=== PATIENT | male | born 1985 | race Caucasian/White ===

== ENCOUNTER 2016-06-12 10:54 | Emergency (ER) | payer SELFPAY ==
[2016-06-12 11:00] VITALS: TEMP 98.7; BMI 29.9
--- NOTE | 2016-06-12 11:05 | PDOC ---
History of Present Illness - General Chief Complaint: Lethargy Stated Complaint: FATIGUE (REFERRED) Time Seen by Provider: 06/12/16 11:04 - History of Present Illness Initial Comments: 06/12/16 11:22 The pt is a 31 year old male with no PMH who presents to ED referred from Urgent Care where he was found to have glucosuria. The pt has been complaining of lethargy, weakness, increased thirst for a month. For the past 3 days he has been complaining of dysuria, increased frequency, double vision and episode of vomiting. He denies weight change, fever, chills, diaphoresis. He doesn't take any medications and doesn't have PCP. Currently he denies chest pain, palpitations, SOB, abdominal pain, diarrhea, constipation. 06/12/16 11:35 Past History - Past Medical History Allergies/Adverse Reactions: Allergies Allergy/AdvReac Type Severity Reaction Status Date / Time No Known Allergies Allergy Verified 06/12/16 10:59 Other medical history: DENIES - Psycho/Social/Smoking Cessation Hx Anxiety: No Suicidal Ideation: No Smoking History: Never smoked Hx Alcohol Use: No Drug/Substance Use Hx: No Substance Use Type: None Review of Systems - Review of Systems Able to Perform ROS?: Yes Comments:: 06/12/16 11:33 REVIEW OF SYSTEMS CONSTITUTIONAL: generalized weakness, malaise Absent: fever, chills, diaphoresis, loss of appetite, weight change HEENT: Absent: rhinorrhea, nasal congestion, throat pain, throat swelling, difficulty swallowing, mouth swelling, ear pain, eye pain, visual changes CARDIOVASCULAR: Absent: chest pain, syncope, palpitations, irregular heart rate, lightheadedness , peripheral edema RESPIRATORY: Absent: cough, shortness of breath, dyspnea with exertion, orthopnea, wheezing, stridor, hemoptysis GASTROINTESTINAL: Absent: abdominal pain, abdominal distension, nausea, vomiting, diarrhea, constipation, melena, hematochezia GENITOURINARY: dysuria, frequency Absent: , urgency, hesitancy, hematuria, flank pain, genital pain MUSCULOSKELETAL: Absent: myalgia, arthralgia, joint swelling, back pain, neck pain SKIN: Absent: rash, itching, pallor NEUROLOGIC: Absent: headache, focal weakness or paresthesias, dizziness, unsteady gait, seizure, mental status changes, bladder or bowel incontinence *Physical Exam - Vital Signs Last Vital Signs Temp Pulse Resp BP Pulse Ox 98.7 F 116 H 20 110/83 98 06/12/16 10:55 06/12/16 10:55 06/12/16 10:55 06/12/16 10:55 06/12/16 10:55 - Physical Exam Comments: 06/12/16 11:36 GENERAL: The patient is awake, alert, and fully oriented, in no acute distress. HEAD: Normal with no signs of trauma. EYES: PERRL, extraocular movements intact, sclera anicteric, conjunctiva clear. No ptosis. ENT: Ears normal, nares patent, oropharynx: oral thrush on oral muccosa, moist mucous membranes. NECK: Trachea midline, full range of motion, supple. LUNGS: Breath sounds equal, clear to auscultation bilaterally, no wheezes, no crackles, no accessory muscle use. HEART: Regular rate and rhythm, S1, S2 without murmur, rub or gallop. ABDOMEN: Soft, nontender, nondistended, normoactive bowel sounds, no guarding, no rebound, no hepatosplenomegaly, no masses. EXTREMITIES: 2+ pulses, warm, well-perfused, no edema. NEUROLOGICAL: Normal speech, gait not observed. PSYCH: Normal mood, normal affect. SKIN: Warm, dry, normal turgor, no rashes, striae on abdomen. ED Treatment Course - LABORATORY CBC & Chemistry Diagram: 06/12/16 11:28 06/12/16 11:28 Medical Decision Making - Medical Decision Making 06/12/16 11:39 The pt is a 31 year male who presents complaining of lethargy, increased thirst , dysuria for a month. Differential diagnosis include DM, DKA, UTI, depression. We ordered UA, Ucx, CBC, CMP, acetone level, VBG, NS 1L. The pt refused screening for HIV. 06/12/16 15:24 Elevated troponin, diffuse ST elevations in ECG. Discussed with Dr. Nguyễn , ECHO done, nl, CXR no acute pathology. Elevated glucose, no anion gap. We will transfer the pt to [facility] for possible cath. He was informed and agreed. *DC/Admit/Observation/Transfer Diagnosis at time of Disposition: Carditis - Discharge Dispostion Disposition: TRANSFER ACUTE CARE/OTHER HOSP Condition at time of disposition: Guarded
--- NOTE | 2016-06-12 11:35 | PDOC ---
Attending Attestation - Resident Resident Name: StephaniePeace - ED Attending Attestation I have performed the following: I have examined & evaluated the patient, The case was reviewed & discussed with the resident, I agree w/resident's findings & plan, Exceptions are as noted - HPI HPI: 06/12/16 11:31 31-year-old male with no severe past medical history presents referred from urgent care after he was found to have glucose in the urine in the setting of complaining of one month of progressive fatigue, body aches, polyuria/ polydipsia. Positive family history of diabetes - Physicial Exam PE: 06/12/16 11:33 Mild tachycardia Dry mucosa Abdomen benign, no CVA tenderness Neurologically intact - Critical Care Time Total Critical Care Time: 55 Critical Care Statement: The care of this patient involved high complexity decision making to prevent further life threatening deterioration of the patient 's condition and/or to evalute & treat vital organ system(s) failure or risk of failure. - Medical Decision Making 06/12/16 11:34 Patient seen and evaluated with the resident. I agree with the overall evaluation, assessment, and management with the following summary of visit: 31-year-old male with nonspecific complaints, sounds with glucosuria in urgent care. Rule out new onset diabetes, underlying infectious process, none metabolic syndrome such as depression. Labs, urinalysis VBG, acetone EKG IV fluids Reassess and dispo accordingly 06/12/16 12:42 Labs pending. Abnormal EKG with MILO diffusely, likely pericarditis given low risk factors. Reviewed with Cardiology Dr. Nguyễn, at bedside, checking Trop and Echo ordered. 06/12/16 13:11 Elevated troponin of 5.88, also with elevated glucose but normal anion gap. Acetone pending. Discussed with Dr. Nguyễn's, still more likely pericarditis/myocarditis. Will obtain stat echo, give aspirin, and discuss next steps. 06/12/16 14:06 Echo and CXR wnl. Per cardiology will transfer for further cardiac workup. patient and family request [facility]. Accepted by Dr. Redd of cardiology, discussed with Dr. Nguyễn. Transfer arranged. Aspirin given. Discharge Disposition - Diagnosis Carditis - Discharge Dispostion Disposition: TRANSFER ACUTE CARE/OTHER HOSP Condition at time of disposition: Guarded - Transfer to Acute Care Facility Receiving Facility: [facility]. Accepting Physician:: Ivania Heart Score/ECG Review #1 ECG reviewed & interpreted by me at: 11:49 06/12/16 12:[address] elevations most prominent in the inferior leads, but also present throughout the precordial leads, no reciprocal changes. No significant MT depression, amplitude is within normal limits, intervals are normal.
[2016-06-12] MEDS ORDERED: SODIUM CHLORIDE 1,000 ML IV STA (11:38)
[2016-06-12 12:18] LABS: VENOUS PH 7.37 (7.32-7.42)
[2016-06-12 12:19] LABS: VENOUS BLOOD GAS HCO3 27.5 meq/L (19-25)
[2016-06-12 12:40] LABS: MCH 28.8 pg (25.7-33.7); MCHC 33.6 g/dl (32.0-35.9); MEAN CELL VOLUME 85.7 fl (80-96); MEAN PLT VOLUME 9.4 fl (7.5-11.1); PLATELET COUNT 204 K/MM3 (134-434); RDW 12.5 % (11.9-15.9); WHITE BLOOD COUNT 11.7 K/mm3 (4.0-10.0)
[2016-06-12 12:44] LABS: ALBUMIN 4.2 g/dl (3.4-5.0); ANION GAP 11 (8-16); BILIRUBIN,TOTAL 0.6 mg/dL (0.2-1.0); CALCIUM 9.4 mg/dL (8.5-10.1); CO2 26 mmol/L (21-32); SGOT/AST 59 U/L (15-37); TOT PROT 7.9 g/dl (6.4-8.2)
[2016-06-12 12:46] LABS: ALK PHOS 133 U/L (45-117); SGPT/ALT 36 U/L (12-78)
--- NOTE | 2016-06-12 12:48 | EKG ---
Test Reason : Blood Pressure : / mmHG Vent. Rate : 089 BPM Atrial Rate : 089 BPM P-R Int : 134 ms QRS Dur : 076 ms QT Int : 326 ms P-R-T Axes : 041 014 039 degrees QTc Int : 396 ms NORMAL SINUS RHYTHM ST ELEVATION CONSIDER INFERIOR INJURY OR ACUTE INFARCT ACUTE HI / STEMI ABNORMAL ECG WHEN COMPARED WITH ECG OF 26-JAN-2006 22:54, QRS VOLTAGE HAS DECREASED Confirmed by KENNETH MORE MD ([id number]) on 06/12/2016 12:48:21 PM Referred By: Confirmed By:KENNETH MORE MD
[2016-06-12 12:49] LABS: GLUCOSE,RANDOM 354 mg/dL (74-106)
--- NOTE | 2016-06-12 12:51 | PN ---
Progress Note (short form) - Note Progress Note: Consult Dictated New onset polyuria and fatigue Recent URI Abnl ECG REC: Suspect pericarditis. -Echo -Cardiac enzymes -Tele -NSAIDS -Work up of fatigue and polyuria as per PMD, concern for DM
[2016-06-12] MEDS ORDERED: ASPIRIN 325 MG TABLET PO ONE (12:55)
[2016-06-12 13:05] LABS: TROPONIN I 5.88 ng/ml (0.00-0.05)
[2016-06-12 14:42] LABS: URINE APPEARANCE CLEAR; URINE BILIRUBIN NEGATIVE (NEGATIVE); URINE BLOOD NEGATIVE (NEGATIVE); URINE COLOR LTYELLOW; URINE GLUCOSE (UA) 3+ (NEGATIVE); URINE KETONE 2+ (NEGATIVE); URINE LEUK ESTERASE NEGATIVE (NEGATIVE); URINE NITRITE NEGATIVE (NEGATIVE); URINE PROTEIN NEGATIVE (NEGATIVE); URINE UROBILINOGEN NEGATIVE E.U./dl (0.2-1.0)
[2016-06-12 15:39] LABS: INR 1.01 (0.82-1.09); PROTHROMBIN TIME (PATIENT) 11.1 SEC (9.98-11.88)
--- NOTE | 2016-06-12 15:44 | PN ---
Progress Note (short form) - Note Progress Note: Cardiac enzymes noted. Echo basically normal. Labs reviewed. Case d/w Dr. Alfaro- still suspect pericarditis or sindy/myocarditis. However, in light of confirmed DM and degree of enzyme elevation, assessment of cor anatomy reasonable. Will transfer to [facility] for Coronary CTA vs cath. ASA given. Family aware and agrees to tx Dr. Hanson accepts patient, case discussed with him.
[2016-06-12 16:36] VITALS: BP 116/62; PULSE 93
--- NOTE | 2016-06-12 19:25 | CONS ---
DATE OF CONSULTATION: DATE OF DICTATION: 06/12/2016 CARDIOLOGY CONSULTATION REQUESTING PHYSICIAN: Mckay Alfaro M.D. REASON FOR CONSULTATION: Abnormal EKG. HISTORY OF PRESENT ILLNESS: The patient is a 31-year-old male with no significant past medical history who has been experiencing polyuria, polydipsia, and generalized fatigue, blurry vision for the last 4 weeks. At his 's urging, he went to an urgent care center today and was found to have significantly elevated glucose on urinalysis and was referred to his local ER. I was called due to an abnormal baseline EKG showing less than [address] segment elevations diffusely in I, II, III, AVF, V4-V6 with no significant reciprocal depressions. At this time the patient is asymptomatic with no chest pain. He describes a viral URI like syndrome occurring about 1 week ago with white spots on his tongue and on the inside of his buccal mucosa associated with sore throat, dry cough, and congestion, for which he took an over the counter decongestant. Several days ago he had sharp chest pain radiating to the back, worse with different changes of position, currently chest pain free. He denies shortness of breath, fevers, chills. Denies palpitations, syncope, or symptoms of heart failure. PAST MEDICAL HISTORY: He has no chronic medical illnesses. ALLERGIES: He has no allergies and takes no chronic medications. FAMILY HISTORY: There is no early family history of sudden cardiac or early CAD or aneurysms. SOCIAL HISTORY: He smokes cigars, but no cigarettes. No illicits drugs, and no tobacco. 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 He is afebrile. PHYSICAL EXAMINATION: Vital signs: Afebrile with temperature of 98.7, pulse 116, regular. Blood pressure 110/83. HEENT: Anicteric. Neck: 2+ carotid pulses. No bruits. Heart: S1, 2. Regular. No murmurs. Chest: Clear. Abdomen: Soft. Nontender. Extremities: No edema. LABORATORY: Currently pending. Chest x-ray is pending. Echo is currently pending. IMPRESSION: A 31-year-old male with approximately 1 month of generalized fatigue, polyuria, and polydipsia, concern for new onset diabetes; recent viral URI like syndrome with electrocardiogram showing diffuse ST segment elevations with suspicion for pericarditis. PLAN: 1. Echocardiogram. 2. Telemetry. 3. Serial cardiac enzymes. 4. Treatment with nonsteroidal antiinflammatories as we trend cardiac enzymes. 5. Further workup of suspected new onset diabetes as per PMD. ANNIE HERNANDEZ M.D. GOMEZ/[id number]
== END 2016-06-12 16:38 | disposition short-term general hospital (02) ==
LOC: JER 10:54
PROC: 3E0337Z Introduction of Electrolytic and Water Balance Substance into Peripheral Vein, Percutaneous Approach (ICD-10-PCS; principal; 2016-06-12)
DX: I51.89 Other ill-defined heart diseases (principal)
CPT/HCPCS: 36415; 71010-TC; 80053; 81003; 82009; 82550; 82553; 82803; 84484; 85027; 85610; 87086; 93005; 93010; 93306-TC; 99284-25

== ENCOUNTER 2018-09-26 21:40 | Inpatient (IN) | payer OTHER ==
--- NOTE | 2018-09-26 21:50 | PDOC ---
History of Present Illness - General Chief Complaint: Weakness Stated Complaint: R/SIDE NUMBNESS Time Seen by Provider: 09/26/18 21:50 - History of Present Illness Initial Comments: Reji Conner is a 33yo man with a PMH of [place] (2017), CVA w/ residual aphasia ( 2018), IDDM, HTN, HLD who presents with right-sided numbness for 4 days. Mr Conner has significant aphasia but is able to communicate with yes/no answers, and his is at bedside to provide additional information. He states that the entire right side of his body feels numb. The numbness is not exactly the same everywhere; it is more severe in the arm and leg compared to the right torso and face. He has not noticed any loss of strength or balance , and his speech is at baseline. His confirms that his gait and speech appear normal. He denies any associated symptoms such as chest pain, difficulty breathing, abdominal symptoms, anorexia, fever, GI or urinary symptoms. He has been taking his medications as prescribed, and he says that his blood sugar is usually around the 120's at home. Past History - Past Medical History Allergies/Adverse Reactions: Allergies Allergy/AdvReac Type Severity Reaction Status Date / Time dulaglutide [From [facility]] Allergy Verified 09/26/18 21:44 Home Medications: Ambulatory Orders Aspirin [Aspirin EC] 81 mg PO DAILY 09/26/18 Atorvastatin Ca [Lipitor] 80 mg PO HS 09/26/18 Clopidogrel Bisulfate [Plavix] 75 mg PO DAILY 09/26/18 Insulin Glargine,Hum.rec.anlog [Basaglar Kwikpen U-100] 20 unit SQ DAILY Metformin HCl [Metformin HCl ER] 500 mg PO DAILY 09/26/18 Metoprolol Tartrate 25 mg PO BID 09/26/18 Cardiac Disorders: Yes ([place]) COPD: No Diabetes: Yes HTN: Yes Hypercholesterolemia: Yes Other medical history: CVA - Suicide/Smoking/Psychosocial Hx Smoking History: Never smoked Hx Alcohol Use: No Drug/Substance Use Hx: No Substance Use Type: None Review of Systems - Review of Systems Comments:: General: No fevers, no chills, no weight or appetite change, no malaise HEENT: No changes in vision, no changes in hearing, no congestion, no sore throat CV: No chest pain, no palpitations, no LE edema Pulm: No SOB, no cough, no wheezing GI: No nausea or vomiting, no change in bowel habits, no melena : No frequency, no urgency, no dysuria Musc: No back pain, no joint swelling, no recent injury Skin: No rash, no lesions, no erythema Endo: No excessive thirst, no heat/cold intolerance Heme: No unusual bruising or bleeding, no swollen glands Neuro: No syncope, +numbness (see HPI), no focal weakness Vasc: No claudication Psych: No recent change in mood, no SI or HI *Physical Exam - Vital Signs Last Vital Signs Temp Pulse Resp BP Pulse Ox 97.6 F 92 H 18 123/85 99 09/26/18 21:41 09/26/18 21:41 09/26/18 21:41 09/26/18 21:41 09/26/18 21:41 - Physical Exam Comments: General: Comfortable, no acute distress HEENT: PERRL, EOMI, MMM, voice normal, normal neck ROM. Fluttering of R>L eyelids when closed Cards: RRR, no murmur appreciated Pulm: Comfortable on room air, clear to auscultation bilaterally Abd: Soft, nontender, nondistended Ext: Atraumatic. No LE edema. ROM intact. Strength 5/5 and equal bilaterally Vasc: Extremities WWP Skin: Normal color, no rashes or lesions Neuro: A&Ox3, Aphasic w/ severe difficulty speaking, comprehension appears intact, CN 2-4 6-12 grossly intact, motor grossly intact and symmetric. Sensation to sharp/dull diminished along lateral RLE, ulnar RUE. Sensation to light touch w/ cotton diminished over entire RLE and ulnar RUE along with Rt face. Psych: Mood appropriate to situation ED Treatment Course - LABORATORY CBC & Chemistry Diagram: 09/26/18 22:25 09/26/18 22:25 Medical Decision Making - Medical Decision Making 09/26/18 22:23 Reji Conner is a 33yo man with a PMH of [place] (2017), CVA w/ residual aphasia ( 2018), IDDM, HTN, HLD who presents with right-sided numbness for 4 days. He denies any other symptoms including weakness, loss of balance, change in gait, fever, or change in facial appearance. - Concerning for new CVA, possibly lacunar given that symptoms appear to be entirely loss of sensation - Stroke workup ordered including CBC, CMP, trop, lipids, CT head, CXR, EKG - No new meds at this time as he already takes a high-intensity statin, aspirin , plavix 09/26/18 23:45 - Labs reviewed. Notable for elevated lipids, no other significant abnormalities - CT completed, reviewed in ED. Notable left frontal defect from previous CVA. No bleed appreciated. Radiology report pending - EKG w/ NSR, HR 89, normal axis, normal intervals, no ST changes. Normal EKG 09/27/18 00:23 - CT without acute infarct. Notes defects c/w previous stroke - Updated pt - Microblog sent to hospitalist team for admission for additional neuro workup - Signed out to Dr Hwang for the remainder of his ED care. 09/27/18 00:33 - Spoke to Dr Gould regarding admission. Will accept to Dr Gutierrez' service - Placed consult for Dr Julien, pt's outpatient neurologist Discussed with Dr Durham. Cordelia Capone PGY2 *DC/Admit/Observation/Transfer Diagnosis at time of Disposition: Numbness on right side - Discharge Dispostion Decision to Admit order: Yes - Referrals - Patient Instructions - Post Discharge Activity
[2018-09-26] MEDS ORDERED: SODIUM CHLORIDE 1,000 ML IV SCH (22:15)
[2018-09-26 22:39] LABS: BASO % 1.2 % (0-2.0); EOS % 1.3 % (0-4.5); HEMATOCRIT 46.2 % (35.4-49); LYMPH % 30.9 % (8-40); MCH 28.5 pg (25.7-33.7); MCHC 32.5 g/dl (32.0-35.9); MEAN CELL VOLUME 87.6 fl (80-96); MEAN PLT VOLUME 8.3 fl (7.5-11.1); MONO % 6.8 % (3.8-10.2); NEUT % 59.8 % (42.8-82.8); PLATELET COUNT 279 K/MM3 (134-434); RBC 5.27 M/mm3 (4.00-5.60); RDW 12.8 % (11.9-15.9); WHITE BLOOD COUNT 10.1 K/mm3 (4.0-10.0)
[2018-09-26 22:51] LABS: INR 0.98 (0.83-1.09); PROTHROMBIN TIME (PATIENT) 11.6 SEC (9.7-13.0)
[2018-09-26 23:12] LABS: ALK PHOS 65 U/L (45-117); ANION GAP 6 MMOL/L (8-16); BILIRUBIN,TOTAL 0.3 mg/dL (0.2-1); BLOOD UREA NITROGEN 22.1 mg/dL (7-18); CALCIUM 9.1 mg/dL (8.5-10.1); CHLORIDE 106 mmol/L (98-107); CHOLESTEROL 190 mg/dL (50-200); CO2 27 mmol/L (21-32); CREATININE 1.2 mg/dL (0.55-1.3); GLUCOSE,RANDOM 135 mg/dL (74-106); HDL CHOLESTEROL 55 mg/dL (40-60); POTASSIUM 4.6 mmol/L (3.5-5.1); SGOT/AST 26 U/L (15-37); SGPT/ALT 21 U/L (13-61); SODIUM 139 mmol/L (136-145); TOT PROT 7.5 g/dl (6.4-8.2); TRIGLYCERIDES 268 mg/dL (0-150)
--- NOTE | 2018-09-27 00:09 | PDOC ---
Documentation entered by Sheron Fair SCRIBE, acting as scribe for Gogo Durham MD. Gogo Durham MD: This documentation has been prepared by the gisselle, Sheron Fair SCRIBE, under my direction and personally reviewed by me in its entirety. I confirm that the documentation accurately reflects all work, treatment, procedures, and medical decision making performed by me. Attending Attestation - Resident Resident Name: Cordelia Capone - ED Attending Attestation I have performed the following: I have examined & evaluated the patient, The case was reviewed & discussed with the resident, I agree w/resident's findings & plan, Exceptions are as noted - HPI HPI: 09/27/18 00:01 33yo man with a PMH of [place] (2017), CVA w/ residual aphasia (2018), IDDM, HTN, HLD presents to the ED with 4 days of decreased sensation to the R side of the body. Denies headache, weakness. Denies associated CP, SOB, fevers, chills, N/V/ D, abd pain, edema, rashes, neck pain, back pain. Waited 4 days because he did not want to come to the hospital. - Physicial Exam PE: 09/27/18 00:03 agree with resident exam - Medical Decision Making 09/27/18 00:04 33yo M hx [place], CVA presents to the ED with R sided decreased sensation x4 days Out of TPA window CTH with old L sided frontal CVA/encephalomalacia. No blood on my read Labs wnl Plan for admission for CVA w/u, neuro evaluation Heart Score/ECG Review #1 09/27/18 00:07 Twelve-lead EKG was performed and reviewed by me. Normal sinus rhythm, rate 89. Normal axis and intervals. No ST elevations. TWI lead III and TWF in AVF
[2018-09-27 00:48] LABS: URINE APPEARANCE CLEAR; URINE BILIRUBIN NEGATIVE (NEGATIVE); URINE COLOR YELLOW; URINE GLUCOSE (UA) NEGATIVE (NEGATIVE); URINE KETONE TRACE (NEGATIVE); URINE LEUK ESTERASE NEGATIVE (NEGATIVE); URINE NITRITE NEGATIVE (NEGATIVE); URINE PROTEIN NEGATIVE (NEGATIVE)
--- NOTE | 2018-09-27 02:30 | PN ---
Teaching Attending Note Name of Resident: Jessica Gould ATTENDING PHYSICIAN STATEMENT I saw and evaluated the patient. Chart, data, imaging reviewed. I reviewed the resident's note and discussed the case with the resident. I agree with the resident's findings and plan as documented. SUBJECTIVE: 33yo man with a PMH of [place] (2017), CVA w/ residual dysarthria (2018), IDDM, HTN, HLD presents to the ED with 4 days of decreased sensation to the R side of face and body as well as paresthesias in his right hand. He was reluctant to come to hospital but finally came after his symptoms worsened. As per his GF, was already worked up for hypercoagulability in the past however workup was negative. OBJECTIVE: Last Vital Signs Temp Pulse Resp BP Pulse Ox 98.1 F 84 20 121/68 98 09/27/18 01:17 09/27/18 01:17 09/27/18 01:17 09/27/18 01:17 09/26/18 23:25 General- nad, aaox3 Neuro- decreased pinprick sensation on right face, right upper and lower extremities compared to left. +dysarthria, 4/5 hand-hog tender on right compared to 5/ 5 on left. Brisk patellar reflexes b/l Abnormal Lab Results 09/26/18 09/26/18 09/27/18 22:25 22:25 00:35 WBC 10.1 H Anion Gap 6 L BUN 22.1 H Random Glucose 135 H Triglycerides 268 H Total LDL Cholesterol 105 H Urine Ketones Trace H Head CT reviewed - showed left frontal lobe encephalomalacia compatible with old infarct, no new lesions identified ekg showed sinus rhythm ASSESSMENT AND PLAN: #Clinical picture of CVA, no acute findings on CT of brain, only old area of encephalomalacia on left side c/w old infarct. Patient was outside of window of possible TPA. -admit to telemetry -old echo from 2017 and carotid duplex form 2019 appreciated -ordered brain MRI, head/neck MRA -atorvastatin 80mg po qhs -ASA 81mg po -neurology eval -neuro checks q4hrs -NPO except for meds -speech and swallow eval -physical therapy #CAD -ASA -clopidogrel -statin #DM -tight glycemic control -novolog sliding scale
--- NOTE | 2018-09-27 03:24 | HP ---
CHIEF COMPLAINT: R sided sensory loss PCP: HISTORY OF PRESENT ILLNESS: 33 yo M w/ PMH of [place] (2017), CVA (2018) s/p thrombectomy w/ aphasia, DM, HLD, HTN brought into the ED by his for right sided sensory loss. Pt is aphasic and can only answer yes or no. pt was able to state his name and his location. Pt speech is his baseline according to his . According to , pt states this acute sensory loss began 4 days ago. The pt states it is not improving and he is noticing it more. Today symptoms progressed to his R foot and is now beginning to affect his strength. ER course was notable for: (1)CT head negative for acute infarct Recent Travel: denies PAST MEDICAL HISTORY: Diabetes CT CVA HTN HLD PAST SURGICAL HISTORY: Social History: Smoking:pt smoked approx 5 cigarettes for 10 years. quit around 8 years ago Alcohol:denies Drugs: denies Family History: [facility] Allergy (Verified 09/26/18 21:44) HOME MEDICATIONS: Home Medications Medication Instructions Recorded Aspirin [Aspirin EC] 81 mg PO DAILY 09/26/18 Atorvastatin Ca [Lipitor] 80 mg PO HS 09/26/18 Clopidogrel Bisulfate [Plavix] 75 mg PO DAILY 09/26/18 Insulin Glargine,Hum.rec.anlog 20 unit SQ DAILY 09/26/18 [Basaglar Kwikpen U-100] Metformin HCl [Metformin HCl ER] 500 mg PO DAILY 09/26/18 Metoprolol Tartrate 25 mg PO BID 09/26/18 REVIEW OF SYSTEMS CONSTITUTIONAL: Absent: fever, chills, diaphoresis, generalized weakness, malaise, loss of appetite, weight change HEENT: Absent: throat swelling, difficulty swallowing, eye pain, visual changes CARDIOVASCULAR: Absent: chest pain, palpitations, irregular heart rate, lightheadedness RESPIRATORY: Absent: cough, shortness of breath, dyspnea with exertion, orthopnea, wheezing, stridor, hemoptysis GASTROINTESTINAL: Absent: abdominal pain, abdominal distension, nausea, vomiting, diarrhea, constipation, melena, hematochezia GENITOURINARY: Absent: dysuria, frequency, urgency, hesitancy, hematuria, flank pain, genital pain MUSCULOSKELETAL: Absent: myalgia, arthralgia, joint swelling, back pain, neck pain SKIN: Absent: rash, itching, pallor HEMATOLOGIC/IMMUNOLOGIC: Absent: easy bleeding, easy bruising, lymphadenopathy, frequent infections ENDOCRINE: Absent: unexplained weight gain, unexplained weight loss, heat intolerance, cold intolerance NEUROLOGIC: Absent: headache, focal weakness or paresthesias, dizziness, unsteady gait, seizure, mental status changes, bladder or bowel incontinence PSYCHIATRIC: Absent: anxiety, depression, suicidal or homicidal ideation, hallucinations. PHYSICAL EXAMINATION Vital Signs - 24 hr 09/26/18 09/26/18 09/26/18 21:41 22:15 23:25 Temperature 97.6 F Pulse Rate 92 H Pulse Rate [ 92 H Left Radial] Respiratory 18 16 Rate Blood Pressure 123/85 Blood Pressure 121/78 [Left Arm] O2 Sat by Pulse 99 97 98 Oximetry (%) 09/27/18 01:17 Temperature 98.1 F Pulse Rate Pulse Rate [ 84 Left Radial] Respiratory 20 Rate Blood Pressure Blood Pressure 121/68 [Left Arm] O2 Sat by Pulse Oximetry (%) GENERAL: Awake, alert, and fully oriented, in no acute distress. HEAD: Normal with no signs of trauma. EYES: Pupils equal, round and reactive to light, extraocular movements intact, sclera anicteric, conjunctiva clear. No lid lag. NECK: Normal range of motion, supple without lymphadenopathy, JVD, no carotid bruit appreciated LUNGS: Breath sounds equal, clear to auscultation bilaterally. No wheezes, and no crackles. No accessory muscle use. HEART: Regular rate and rhythm, normal S1 and S2 without murmur, rub or gallop. ABDOMEN: Soft, tender to palpation RUQ and RLQ, not distended, normoactive bowel sounds MUSCULOSKELETAL: Normal range of motion at all joints. No bony deformities or tenderness. No CVA tenderness. UPPER EXTREMITIES: 2+ pulses, warm, well-perfused. No cyanosis. No clubbing. 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 No calf tenderness. No peripheral edema. NEUROLOGICAL: Cranial nerves II-XII intact. Normal gait. PSYCHIATRIC: Cooperative. Good eye contact. Appropriate mood and affect. SKIN: Warm, dry, normal turgor, no rashes or lesions noted, normal capillary refill. Laboratory Results - last 24 hr Laboratory Last Values WBC 10.1 K/mm3 (4.0-10.0) H 09/26/18 22:25 RBC 5.27 M/mm3 (4.00-5.60) 09/26/18 22:25 Hgb 15.0 GM/dL (11.7-16.9) 09/26/18 22:25 Hct 46.2 % (35.4-49) 09/26/18 22:25 MCV 87.6 fl (80-96) 09/26/18 22:25 MCH 28.5 pg (25.7-33.7) 09/26/18 22:25 MCHC 32.5 g/dl (32.0-35.9) 09/26/18 22:25 RDW 12.8 % (11.9-15.9) 09/26/18 22:25 Plt Count 279 K/MM3 (134-434) D 09/26/18 22:25 MPV 8.3 fl (7.5-11.1) D 09/26/18 22:25 Absolute Neuts (auto) 6.0 K/mm3 (1.5-8.0) 09/26/18 22:25 Neutrophils % 59.8 % (42.8-82.8) 09/26/18 22:25 Lymphocytes % 30.9 % (8-40) 09/26/18 22:25 Monocytes % 6.8 % (3.8-10.2) 09/26/18 22:25 Eosinophils % 1.3 % (0-4.5) 09/26/18 22:25 Basophils % 1.2 % (0-2.0) 09/26/18 22:25 Nucleated RBC % 0 % (0-0) 09/26/18 22:25 PT with INR 11.60 SEC (9.7-13.0) 09/26/18 22:25 INR 0.98 (0.83-1.09) 09/26/18 22:25 Sodium 139 mmol/L (136-145) 09/26/18 22:25 Potassium 4.6 mmol/L (3.5-5.1) 09/26/18 22:25 Chloride 106 mmol/L (98-107) 09/26/18 22:25 Carbon Dioxide 27 mmol/L (21-32) 09/26/18 22:25 Anion Gap 6 MMOL/L (8-16) L 09/26/18 22:25 BUN 22.1 mg/dL (7-18) H 09/26/18 22:25 Creatinine 1.2 mg/dL (0.55-1.3) 09/26/18 22:25 Est GFR (CKD-EPI)AfAm 90.26 09/26/18 22:25 Est GFR (CKD-EPI)NonAf 77.87 09/26/18 22:25 Random Glucose 135 mg/dL (74-106) H 09/26/18 22:25 Calcium 9.1 mg/dL (8.5-10.1) 09/26/18 22:25 Total Bilirubin 0.3 mg/dL (0.2-1) 09/26/18 22:25 AST 26 U/L (15-37) 09/26/18 22:25 ALT 21 U/L (13-61) 09/26/18 22:25 Alkaline Phosphatase 65 U/L (45-117) 09/26/18 22:25 Creatine Kinase 140 U/L (26-308) 09/26/18 22:25 Troponin I < 0.02 ng/ml (0.00-0.05) 09/26/18 22:25 Total Protein 7.5 g/dl (6.4-8.2) 09/26/18 22:25 Albumin 4.0 g/dl (3.4-5.0) 09/26/18 22:25 Triglycerides 268 mg/dL (0-150) H 09/26/18 22:25 Cholesterol 190 mg/dL (50-200) 09/26/18 22:25 Total LDL Cholesterol 105 mg/dL (5-100) H 09/26/18 22:25 HDL Cholesterol 55 mg/dL (40-60) 09/26/18 22:25 Urine Color Yellow 09/27/18 00:35 Urine Appearance Clear 09/27/18 00:35 Urine pH 7.0 (5.0-8.0) 09/27/18 00:35 Ur Specific [place] 1.027 (1.010-1.035) 09/27/18 00:35 Urine Protein Negative (NEGATIVE) 09/27/18 00:35 Urine Glucose (UA) Negative (NEGATIVE) 09/27/18 00:35 Urine Ketones Trace (NEGATIVE) H 09/27/18 00:35 Urine Blood Negative (NEGATIVE) 09/27/18 00:35 Urine Nitrite Negative (NEGATIVE) 09/27/18 00:35 Urine Bilirubin Negative (NEGATIVE) 09/27/18 00:35 Urine Urobilinogen 1.0 mg/dL (0.2-1.0) 09/27/18 00:35 Ur Leukocyte Esterase Negative (NEGATIVE) 09/27/18 00:35 Blood Type B POSITIVE 09/26/18 22:45 Antibody Screen Negative 09/26/18 22:45 ASSESSMENT/PLAN: 33 yo M with PMH of CT (2017) , CVA (2018) s/p thrombectomy? w/ residual aphasia, DM, HLD,HTN presenting to ED with R sided sensory loss and weakness that began 4 days ago. CVA -admit to telemetry -prior echo (2016) and carotid duplex (2019) appreciated -ordered brain MRI, head/neck MRA -c/w home atorvastatin 80mg po qhs -c/w home ASA 81mg po -neurology eval - consulted Dr. Julien -neuro checks q4hrs -NPO except for meds -speech and swallow eval -PT #CAD -c/w home ASA, clopidogrel, statin #DM -tight glycemic control -novolog sliding scale -BGM DVT ppx: -SCDs Visit type - Emergency Visit Emergency Visit: No - New Patient This patient is new to me today: No - Critical Care Critical Care patient: No
[2018-09-27 03:53] VITALS: BMI 30.7
[2018-09-27] MEDS: INSULIN SLIDING SCALE (NOVOLOG) 1 VIAL SQ SCH ×4 (06:19→21:59)
[2018-09-27] MEDS: CLOPIDOGREL BISULFATE 75 MG TABLET (FP) PO SCH (09:32)
[2018-09-27] MEDS: ASPIRIN COATED 81 MG TABLET.EC PO SCH (09:32)
--- NOTE | 2018-09-27 10:34 | PN ---
Progress Note (short form) - Note Progress Note: SUBJECTIVE: Still reports nubness/tingling R face, arm, leg. No motor weakness. Baseline dysphasia and difficulty in obtaining full history. at bedside was able to provide important history. OBJECTIVE: Afebrile, Hemodynamically Stable. Last Vital Signs Temp Pulse Resp BP Pulse Ox 98.7 F 77 17 122/64 99 09/27/18 06:00 09/27/18 06:00 09/27/18 09:00 09/27/18 06:00 09/27/18 09:00 HEENT - Atraumatic, mild partial flattening R nasolabial fold. Heart - S1, S2, soft SM Lungs - clear to auscultation Abdomen - Soft. Bowel Sounds normal. Extremities - no edema, no calf tenderness Neuro - AAO x 3. Tone/Power normal all 4 extremities. Reports altered sensation R face/arm/leg. No motor weakness. Baseline dysrthria, responds to questions "yes/no" and with one word answers. Laboratory Results - last 24 hr 09/26/18 09/26/18 09/26/18 05:40 22:25 22:25 WBC 10.1 H RBC 5.27 Hgb 15.0 Hct 46.2 MCV 87.6 MCH 28.5 MCHC 32.5 RDW 12.8 Plt Count 279 D MPV 8.3 D Absolute Neuts (auto) 6.0 Neutrophils % 59.8 Lymphocytes % 30.9 Monocytes % 6.8 Eosinophils % 1.3 Basophils % 1.2 Nucleated RBC % 0 PT with INR 11.60 INR 0.98 Sodium Potassium Chloride Carbon Dioxide Anion Gap BUN Creatinine Est GFR (CKD-EPI)AfAm Est GFR (CKD-EPI)NonAf Random Glucose Calcium Total Bilirubin AST ALT Alkaline Phosphatase Creatine Kinase Troponin I Total Protein Albumin Triglycerides Cholesterol Total LDL Cholesterol HDL Cholesterol Urine Color Urine Appearance Urine pH Ur Specific [place] Urine Protein Urine Glucose (UA) Urine Ketones Urine Blood Urine Nitrite Urine Bilirubin Urine Urobilinogen Ur Leukocyte Esterase Blood Type B POSITIVE Antibody Screen 09/26/18 09/26/18 09/27/18 22:25 22:45 00:35 WBC RBC Hgb Hct MCV MCH MCHC RDW Plt Count MPV Absolute Neuts (auto) Neutrophils % Lymphocytes % Monocytes % Eosinophils % Basophils % Nucleated RBC % PT with INR INR Sodium 139 Potassium 4.6 Chloride 106 Carbon Dioxide 27 Anion Gap 6 L BUN 22.1 H Creatinine 1.2 Est GFR (CKD-EPI)AfAm 90.26 Est GFR (CKD-EPI)NonAf 77.87 Random Glucose 135 H Calcium 9.1 Total Bilirubin 0.3 AST 26 ALT 21 Alkaline Phosphatase 65 Creatine Kinase 140 Troponin I < 0.02 Total Protein 7.5 Albumin 4.0 Triglycerides 268 H Cholesterol 190 Total LDL Cholesterol 105 H HDL Cholesterol 55 Urine Color Yellow Urine Appearance Clear Urine pH 7.0 Ur Specific [place] 1.027 Urine Protein Negative Urine Glucose (UA) Negative Urine Ketones Trace H Urine Blood Negative Urine Nitrite Negative Urine Bilirubin Negative Urine Urobilinogen 1.0 Ur Leukocyte Esterase Negative Blood Type B POSITIVE Antibody Screen Negative Current Medications Generic Name Dose Route Start Last Admin Trade Name Katie PRN Reason Stop Dose Admin Aspirin 81 mg 09/27/18 10:00 09/27/18 09:32 Ecotrin - PO 81 mg DAILY SARAH Administration Atorvastatin Calcium 80 mg 09/27/18 22:00 Lipitor - PO HS [facility] Clopidogrel Bisulfate 75 mg 09/27/18 10:00 09/27/18 09:32 Plavix - PO 75 mg DAILY SARAH Administration Sodium Chloride 1,000 mls @ 42 mls/hr 09/26/18 22:15 09/26/18 23:00 Normal Saline - IV 42 mls/hr ASDIR SARAH Administration Insulin Aspart 1 vial 09/27/18 07:00 09/27/18 06:19 Novolog Vial Sliding Scale - SQ Not Given ACHS [facility] Protocol Home Medications Medication Instructions Recorded Aspirin [Aspirin EC] 81 mg PO DAILY 09/26/18 Atorvastatin Ca [Lipitor] 80 mg PO HS 09/26/18 Clopidogrel Bisulfate [Plavix] 75 mg PO DAILY 09/26/18 Metformin HCl [Metformin HCl ER] 500 mg PO BID 09/26/18 Metoprolol Tartrate 25 mg PO BID 09/26/18 ASSESSMENT/PLAN: 33 year old Male with history of CAD s/p [place] 2016, CVA with residual dysphasia 2017, DM 2, HTN, HLD, presents with 4 day history of altered sensation and paresthesia R face/arm/leg. No headache/visual disturbance/motor weakness. 1. Acute CVA possible CT Head negative for acute CVA, showed left frontal lobe encephalomalacia compatible with old infarct. ECG - NSR MRI/MRA Brain, CTA Neck, Echo with bubble study pending. Neurology consulted. Regular Neurochecks and Telemonitoring. LDL still above goal at 105 despite Lipitor 80mg Continue Aspirin, Plavix, Statin pending Neuro eval. Speech/Swallow therapy, Physical Therapy. 2. CAD s/p [place] 2017 s/p BIOINFORMATICIAN (no intervention) Continue Aspirin, Plavix, BB, Statin 3. HTN - Continue Metoprolol 4. HLD -Continue Lipitor. 5. DM 2 - Metformin held. Will maintain on lnsulin Sliding scale. DVT Px - Heparin SQ Visit type - Emergency Visit Emergency Visit: Yes ED Registration Date: 09/27/18 Care time: The patient presented to the Emergency Department on the above date and was hospitalized for further evaluation of their emergent condition. - New Patient This patient is new to me today: Yes Date on this admission: 09/27/18 - Critical Care Critical Care patient: No - Discharge Referral Referred to [facility] Med [facility] No
--- NOTE | 2018-09-27 13:33 | EKG ---
Test Reason : Blood Pressure : / mmHG Vent. Rate : 089 BPM Atrial Rate : 089 BPM P-R Int : 134 ms QRS Dur : 074 ms QT Int : 336 ms P-R-T Axes : 033 038 008 degrees QTc Int : 408 ms NORMAL SINUS RHYTHM NORMAL ECG WHEN COMPARED WITH ECG OF 12-JUN-2016 11:49, ST LESS ELEVATED IN INFERIOR LEADS Confirmed by MD PRIMITIVO, SANTIAGO ([id number]) on 09/27/2018 1:33:08 PM Referred By: Confirmed By:SANTIAGO LANGFORD MD
--- NOTE | 2018-09-27 16:11 | CON.NEURO ---
Consult Consult Specialty:: neurology - History of Present Illness Chief Complaint: stroke History of Present Illness: 33 yo M w/ PMH of [place] ([place]), CVA (2018) s/p thrombectomy w/ aphasia, DM, HLD, HTN brought into the ED by his for right sided sensory loss. Pt is aphasic and can only answer yes or no. pt was able to state his name and his location. Pt speech is his baseline according to his . According to , pt states this acute sensory loss began 4 days ago. The pt states it is not improving and he is noticing it more. Today symptoms progressed to his R foot and is now beginning to affect his strength. I saw and examined the pt at the bedside ; family at the bedside indicating he started having R side numbness F/A/L since 3 days ago and pt was reluctant to come to the hospital; he has had h/o stroke 1 year ago ; he is not told about the cause of his stroke at young age ; he states that his hypercoagulopathy w/u was reported unremarkable ; he denies having any headache ; no f/h of stroke in young and headache to suggest CADASIL. - Alcohol/Substance Use Hx Alcohol Use: No - Smoking History Smoking history: Never smoked Have you smoked in the past 12 months: No Home Medications - Allergies Allergies/Adverse Reactions: Allergies Allergy/AdvReac Type Severity Reaction Status Date / Time dulaglutide [From [facility]] Allergy Verified 09/26/18 21:44 - Home Medications Home Medications: Ambulatory Orders Aspirin [Aspirin EC] 81 mg PO DAILY 09/26/18 Atorvastatin Ca [Lipitor] 80 mg PO HS 09/26/18 Clopidogrel Bisulfate [Plavix] 75 mg PO DAILY 09/26/18 Metformin HCl [Metformin HCl ER] 500 mg PO BID 09/26/18 Metoprolol Tartrate 25 mg PO BID 09/26/18 Review of Systems - Review of Systems Constitutional: reports: No Symptoms Eyes: reports: No Symptoms HENT: reports: No Symptoms Neck: reports: No Symptoms Cardiovascular: reports: No Symptoms Respiratory: reports: No Symptoms Gastrointestinal: reports: No Symptoms Genitourinary: reports: No Symptoms Breasts: reports: No Symptoms Reported Integumentary: reports: No Symptoms Endocrine: reports: No Symptoms Physical Exam-Neuro Vital Signs: Vital Signs Temperature 99.3 F 09/27/18 11:00 Pulse Rate 87 09/27/18 11:00 Respiratory Rate 18 09/27/18 11:00 Blood Pressure 108/60 09/27/18 11:00 O2 Sat by Pulse Oximetry (%) 99 09/27/18 09:00 Constitutional: Yes: Well Nourished Neck: Yes: Supple Cardiovascular: Yes: Regular Rate and Rhythm Respiratory: Yes: CTA Bilaterally Musculoskeletal: Yes: WNL Edema: No Psychiatric: Yes: Alert, Oriented Labs: CBC, BMP 09/26/18 22:25 09/26/18 22:25 INR, PTT INR 0.98 (0.83-1.09) 09/26/18 22:25 - Neuro Exam Level Of Consciousness: Yes: Alert, Oriented to Person, Oriented to Place Eyes: Yes: PERRLA Speech: Broca's Aphasia (Difficult to repeat ; moderate aphasia ; answer with short sentences and 1 word most of the time.) Cranial Nerves II-XII Intact: Yes Gag: Present DTR's: 1+ Left Bicep, 1+ Right Bicep, 1+ Left Tricep, 1+ Right Tricep, 1+ Left Brachioradialis, 1+ Right Brachioradialis, 1+ Left Achilles, 1+ Right Achilles Response to light touch: Normal, Abnormal Response to pain prick: Abnormal (R A/F/L decreased ) Coordination: Normal: Finger to Nose, Heel to [place] Motor Strength: 4/5: Right Leg, 5/5: Left Leg, Right Arm, Left Arm Gait: Deferred Imaging - Results MRI: Report Reviewed, Image Reviewed (New subacute L frontal subacute infarct ; L A2 seg DENNIS , ? hypoplasia) Problem List - Problems (1) Stroke due to embolism of anterior cerebral artery Code(s): I63.429 - CEREBRAL INFRC DUE TO EMBOLISM OF UNSP ANT CEREBRAL ARTERY Qualifiers: Laterality of affected vessel: left Qualified Code(s): I63.422 - Cerebral infarction due to embolism of left anterior cerebral artery (2) Numbness on right side Code(s): R20.0 - ANESTHESIA OF SKIN Assessment/Plan 33 yo M w/ PMH of [place] (2017), stroke in (2018) s/p thrombectomy w/ old residual aphasia, DM, HLD, HTN brought into the ED by his for right sided sensory loss. His sym started 3 days ago , has developed R LE weakness ; MRI brain revealed new subacute L frontal infarct ; pt on baby asp and plavix ; per pt his hypercoagulopathy w/u was -ve one year ago ; no f/h of stroke and headache to suggest CADASIL ; possible DM and HTN as major risk factor; MRA suggestive f ? constriction as well;Not a TPA candidate out of window period. I suggest Cerebral angiography if not done in the past c/w baby asp + plavix + statin cardiac w/u obtain old record for review of hypercoag, shaquille holter monitoring and cardiac w/u PT/OT/ST Health maintenance per primary team Damian Castañeda MD [phone]
[2018-09-27] MEDS: HEPARIN NA (PORCINE) 5,000 UNITS/ML 1ML VIAL SQ SCH (21:55)
[2018-09-27] MEDS ORDERED: ATORVASTATIN CA 80 MG TABLET (FP) PO SCH (22:00)
[2018-09-28] MEDS: INSULIN SLIDING SCALE (NOVOLOG) 1 VIAL SQ SCH ×3 (06:12→17:53)
[2018-09-28] MEDS ORDERED: INSULIN SLIDING SCALE (NOVOLOG) 1 VIAL SQ ONE (08:00)
--- NOTE | 2018-09-28 09:57 | PN ---
Progress Note (short form) - Note Progress Note: Neurology - History of Present Illness Chief Complaint: stroke History of Present Illness: Appreciate neurology coverage over the weekend. 33 yo M w/ PMH of CT (2017), CVA (2018) s/p thrombectomy w/ aphasia, DM, HLD, HTN brought into the ED by his for right sided sensory loss. Know to me from the office and aphasic at baseline and answers mostly yes or no. According to , pt states this acute sensory loss began 4 days prior to admission. The pt stated it was not improving and she believed there may have been some weakness though on my exam strength appeared symetric. he was seen over the weekend and imaging studies completed. Reviewed and discussed them with patient and at bedside. CT head showed encephalomalacia of the left frontal region without any acute changes. CTA of the neck was completed and waswithout hemodynamically significant stenosis and essentially unremarkable. MRI brain however did demonstrate signal change in the corpus callosum extending into the subadjacent left frontal lobe possibly subacute infarct. 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 Not in TPA window or thrombectomy window. Connected with Dr. Tree Arceo of neurointerventional and ccatheter angiogram not performed at this location. Discussed with and we'll coordinate this advanced study as outpatient. Patient is on aspirin and Plavix and at this point is no indication for anticoagulation unless telemetry monitoring were to find atrial fibrillation or alternative cardiac etiology.. Reportedly, hypercoagulable workup was also pursued by the family and was negative. Home Medications - Allergies Allergies/Adverse Reactions: Allergies Allergy/AdvReac Type Severity Reaction Status Date / Time dulaglutide [From [facility]] Allergy Verified 09/26/18 21:44 Active Medications Aspirin (Ecotrin -) 81 mg PO DAILY [facility] Last Admin: 09/27/18 09:32 Dose: 81 mg Atorvastatin Calcium (Lipitor -) 80 mg PO HS SARAH Last Admin: 09/27/18 21:55 Dose: 80 mg Clopidogrel Bisulfate (Plavix -) 75 mg PO DAILY [facility] Last Admin: 09/27/18 09:32 Dose: 75 mg Heparin Sodium (Porcine) (Heparin -) 5,000 unit SQ BID [facility] Last Admin: 09/27/18 21:55 Dose: 5,000 unit Insulin Aspart (Novolog Vial Sliding Scale -) 1 vial SQ ACHS [facility]; Protocol Last Admin: 09/28/18 06:12 Dose: Not Given Review of Systems - Review of Systems Constitutional: reports: No Symptoms Eyes: reports: No Symptoms HENT: reports: No Symptoms Neck: reports: No Symptoms Cardiovascular: reports: No Symptoms Respiratory: reports: No Symptoms Gastrointestinal: reports: No Symptoms Genitourinary: reports: No Symptoms Breasts: reports: No Symptoms Reported Integumentary: reports: No Symptoms Endocrine: reports: No Symptoms Physical Exam-Neuro Vital Signs: Vital Signs Period Temp Pulse Resp BP Sys/Berumen Pulse Ox Last 24 Hr 97.9 F-99.5 F 75-89 16-18 108-124/56-74 99 Constitutional: Yes: Well Nourished Neck: Yes: Supple Cardiovascular: Yes: Regular Rate and Rhythm Respiratory: Yes: CTA Bilaterally Musculoskeletal: Yes: WNL Edema: No Level Of Consciousness: Yes: Alert, Oriented to Person, Oriented to Place Eyes: Yes: PERRLA Speech: Broca's Aphasia (Difficult to repeat ; moderate aphasia ; answer with short sentences and 1 word most of the time.) DTR's: 1+ Left Bicep, 1+ Right Bicep, 1+ Left Tricep, 1+ Right Tricep, 1+ Left Brachioradialis, 1+ Right Brachioradialis, 1+ Left Achilles, 1+ Right Achilles Sensory reduced to 50% on R to PP Coordination: Normal: Finger to Nose, Heel to Morgan Motor Strength: 5-/5: Right Leg, 5/5: Left Leg, Right Arm, Left Arm Gait: Deferred CBCD WBC 10.1 K/mm3 (4.0-10.0) H 09/26/18 22:25 RBC 5.27 M/mm3 (4.00-5.60) 09/26/18 22:25 Hgb 15.0 GM/dL (11.7-16.9) 09/26/18 22:25 Hct 46.2 % (35.4-49) 09/26/18 22:25 MCV 87.6 fl (80-96) 09/26/18 22:25 MCHC 32.5 g/dl (32.0-35.9) 09/26/18 22:25 RDW 12.8 % (11.9-15.9) 09/26/18 22:25 Plt Count 279 K/MM3 (134-434) D 09/26/18 22:25 MPV 8.3 fl (7.5-11.1) D 09/26/18 22:25 CMP Sodium 139 mmol/L (136-145) 09/26/18 22:25 Potassium 4.6 mmol/L (3.5-5.1) 09/26/18 22:25 Chloride 106 mmol/L (98-107) 09/26/18 22:25 Carbon Dioxide 27 mmol/L (21-32) 09/26/18 22:25 Anion Gap 6 MMOL/L (8-16) L 09/26/18 22:25 BUN 22.1 mg/dL (7-18) H 09/26/18 22:25 Creatinine 1.2 mg/dL (0.55-1.3) 09/26/18 22:25 Calcium 9.1 mg/dL (8.5-10.1) 09/26/18 22:25 Total Bilirubin 0.3 mg/dL (0.2-1) 09/26/18 22:25 AST 26 U/L (15-37) 09/26/18 22:25 ALT 21 U/L (13-61) 09/26/18 22:25 Alkaline Phosphatase 65 U/L (45-117) 09/26/18 22:25 Total Protein 7.5 g/dl (6.4-8.2) 09/26/18 22:25 Albumin 4.0 g/dl (3.4-5.0) 09/26/18 22:25 Imaging as above Plan: 33 yo M w/ PMH of CT (2017), CVA (2018) s/p thrombectomy w/ aphasia, DM, HLD, HTN brought into the ED by his for right sided sensory loss. Know to me from the office and aphasic at baseline and answers mostly yes or no. According to , pt states this acute sensory loss began 4 days prior to admission. The pt stated it was not improving and she believed there may have been some weakness though on my exam strength appeared symetric. he was seen over the weekend and imaging studies completed. Reviewed and discussed them with patient and at bedside. CT head showed encephalomalacia of the left frontal region without any acute changes. CTA of the neck was completed and waswithout hemodynamically significant stenosis and essentially unremarkable. MRI brain however did demonstrate signal change in the corpus callosum extending into the subadjacent left frontal lobe possibly subacute infarct. 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 Not in TPA window or thrombectomy window. Connected with Dr. Tree Arceo of neurointerventional and ccatheter angiogram not performed at this location. Discussed with and we'll coordinate this advanced study as outpatient. Patient is on aspirin and Plavix and at this point is no indication for anticoagulation unless telemetry monitoring were to find atrial fibrillation or alternative cardiac etiology.. Reportedly, hypercoagulable workup was also pursued by the family and was negative. Continue tele monitoring for Afib, Cardiology follow-up. Physical therapy recommended, consider short-term rehabilitation if indicated. Continue statin. Monitor blood pressure, maintain <160/90 for now, <140/90 as outpatient. Monitor glucose, maintain euglycemic range.
[2018-09-28 10:29] LABS: RDW 12.7 % (11.9-15.9); WHITE BLOOD COUNT 9.2 K/mm3 (4.0-10.0)
[2018-09-28 11:07] LABS: HEMATOCRIT 42.7 % (35.4-49); HEMOGLOBIN 14.2 GM/dL (11.7-16.9); MCH 29.1 pg (25.7-33.7); MCHC 33.2 g/dl (32.0-35.9); MEAN CELL VOLUME 87.7 fl (80-96); MEAN PLT VOLUME 8.6 fl (7.5-11.1); PLATELET COUNT 230 K/MM3 (134-434); RBC 4.87 M/mm3 (4.00-5.60)
[2018-09-28 11:30] VITALS: TEMP 99.2
[2018-09-28] MEDS: HEPARIN NA (PORCINE) 5,000 UNITS/ML 1ML VIAL SQ SCH (11:31)
[2018-09-28] MEDS: CLOPIDOGREL BISULFATE 75 MG TABLET (FP) PO SCH (11:31)
[2018-09-28] MEDS: ASPIRIN COATED 81 MG TABLET.EC PO SCH (11:31)
[2018-09-28 11:52] LABS: BLOOD UREA NITROGEN 9.5 mg/dL (7-18); CALCIUM 8.9 mg/dL (8.5-10.1); CREATININE 0.8 mg/dL (0.55-1.3); POTASSIUM 4.3 mmol/L (3.5-5.1)
--- NOTE | 2018-09-28 12:12 | PN ---
Teaching Attending Note Name of Resident: Jessica Gould ATTENDING PHYSICIAN STATEMENT I saw and evaluated the patient. I reviewed the resident's note and discussed the case with the resident. I agree with the resident's findings and plan as documented. SUBJECTIVE: Still reports some numbness/tingling R face, arm, leg. No motor weakness. OBJECTIVE: Afebrile, Hemodynamically Stable. Last Vital Signs Temp Pulse Resp BP Pulse Ox 99.2 F 87 18 94/52 L 99 09/28/18 10:00 09/28/18 10:09/28/18 10:09/28/18 10:09/27/18 20:47 Heart - S1, S2, soft SM Lungs - clear to auscultation Abdomen - Soft. Bowel Sounds normal. Extremities - no edema, no calf tenderness Neuro - AAO x 3. Tone/Power normal all 4 extremities. Reports altered sensation R face/arm/leg. No motor weakness. Baseline dysrthria, responds to questions "yes/no" and with one word answers. Laboratory Results - last 24 hr 09/27/18 09/27/18 09/27/18 05:40 16:47 21:58 WBC RBC Hgb Hct MCV MCH MCHC RDW Plt Count MPV Sodium Potassium Chloride Carbon Dioxide Anion Gap BUN Creatinine Est GFR (CKD-EPI)AfAm Est GFR (CKD-EPI)NonAf POC Glucometer 123 228 88 Random Glucose Calcium 09/28/18 09/28/18 09/28/18 06:11 08:47 10:00 WBC 9.2 RBC 4.87 Hgb 14.2 Hct 42.7 MCV 87.7 MCH 29.1 MCHC 33.2 RDW 12.7 Plt Count 230 MPV 8.6 Sodium 140 Potassium 4.3 Chloride 108 H Carbon Dioxide 23 Anion Gap 9 BUN 9.5 Creatinine 0.8 Est GFR (CKD-EPI)AfAm 134.14 Est GFR (CKD-EPI)NonAf 115.74 POC Glucometer 136 Random Glucose 127 H Calcium 8.9 Current Medications Generic Name Dose Route Start Last Admin Trade Name Freq PRN Reason Stop Dose Admin Aspirin 81 mg 09/27/18 10:00 09/28/18 11:31 Ecotrin - PO 81 mg DAILY SARAH Administration Atorvastatin Calcium 80 mg 09/27/18 22:00 09/27/18 21:55 Lipitor - PO 80 mg HS SARAH Administration Clopidogrel Bisulfate 75 mg 09/27/18 10:00 09/28/18 11:31 Plavix - PO 75 mg DAILY SARAH Administration Heparin Sodium (Porcine) 5,000 unit 09/27/18 22:00 09/28/18 11:31 Heparin - SQ 5,000 unit BID SARAH Administration Insulin Aspart 1 vial 09/27/18 07:00 09/28/18 06:12 Novolog Vial Sliding Scale - SQ Not Given ACHS [facility] Protocol ASSESSMENT/PLAN: 33 year old Male with history of CAD s/p CT 2016, CVA with residual dysphasia 2018, DM 2, HTN, HLD, presents with 4 day history of altered sensation and paresthesia R face/arm/leg. No headache/visual disturbance/motor weakness. 1. Acute CVA CT Head negative for acute CVA, showed left frontal lobe encephalomalacia compatible with old infarct. ECG - NSR MRI/MRA Brain - L frontal lobe subacute infarct, Chronic L MCA and DENNIS territory infarcts, no flow L DENNIS Callosomarginal branch. CTA Neck - no acute findings. Echo with bubble study pending. LDL still above goal at 105 despite Lipitor 80mg Continue Aspirin, Plavix, Statin as per Neuro. Neuro recommends outpatient eval at tertiary care center for Neuroradiology eval/intervention. Speech/Swallow therapy, Physical Therapy. If Echo is normal, can be discharged today. 2. CAD s/p CT 2016 s/p [employer] (no intervention) Continue Aspirin, Plavix, BB, Statin 3. HTN - Continue Metoprolol 4. HLD -Continue Lipitor. 5. DM 2 - Metformin held. Will maintain on lnsulin Sliding scale. DVT Px - Heparin SQ
[2018-09-28] MEDS ORDERED: ACETAMINOPHEN 325 MG TABLET (FP) PO ONE (13:13)
[2018-09-28 15:15] VITALS: BP 115/58; PULSE 102
--- NOTE | 2018-09-28 16:52 | CONSULT ---
Admitting History and Physical - Smoking History Smoking history: Never smoked Have you smoked in the past 12 months: No - Alcohol/Substance Use Hx Alcohol Use: No History - Admission Reason For Visit: NUMBNESS ON RIGHT SIDE - Hearing Hearing: Normal Hearing Aide: No Speech Evaluation - Communication Primary Language: NEPALI Communication: Yes: Aphasia (secondary to CVA (2018)) Oral Expression Ability: Yes: Moderate Impairment - Speech Production Apraxia: No Able to Make Needs Known: Yes: Moderately Impaired Intelligibility: Yes: WNL (Adequate for single words i.e. yes / no responses.) - Speech Characteristics Voice Loudness: Normal, Mildly Soft/Quiet Voice Pitch: Yes: Normal Voice Phonatory-based Quality: Yes: Normal Speech Pattern: Normal Nasal Resonance: Normal Articulation: Yes: Precise Dysfluency: Yes: Tonic Rate of Speech: Too Slow Voice Comment: limited verbal output. Spouse reported pt is at baseline for speech - Language/Auditory Comprehension Follows: Yes: 1 Stage Simple Commands Observation: Able to respond to yes/no queries: Yes, Yes/No Confusion: Yes, Comprehends Conversational Speech: Yes, Benefits from Slow Speech: No, Benefits from Repetiton: Yes, Benefits from Increased Volume of Speech: No - Language/Verbal Expression Aphasia: Yes: Fluent Able to Respond to Simple Queries: Yes: WNL (simple responses) Able to Communicate Wants and Needs: Yes: Moderately Impaired (secondary to aphasia) Functional Communication Status: Yes: Moderately Impaired (secondary to aphasia) Aware of Errors: No Attempts to Correct Errors: No Use of Gestures: Yes Written Expression: not examined Oral Expression: limited sample good for yes / no responses. Reading Comprehension: not examined Calculations: not examined Attention: Yes: Distractible, Minimal Impairment - Memory/Perception detention Memory: Yes: Moderately Impaired Short Term Memory: Yes: Moderately Impaired - Swallow Evaluation/Bedside Assessment Current Nutritional Intake: Soft, Thin Liquids Oral Secretions: Yes: WFL Tracheostomy Present: No Patient on Ventilator: No Dentition: Yes: Adequate Facial Symmetry at Rest: Symmetrical Facial Symmetry on Retraction: Symmetrical Facial Movement: Controlled Sensation: Normal Facial Comment: WFL for speech and swallowing purposes Jaw Position: Closed at Rest Against Resistance Opening: Normal Against Resistance Closing: Normal Pucker Lips: Normal Lips, Comment: WFL for speech and swallowing purposes Lingual Movement: Normal Lingual Speed of Movement: Normal Lingual Movement Strgth Against Opposition: Normal Lingual Movement Characteristics: Normal Lingual Comment: WFL for speech and swallowing purposes Soft Palate Description: Normal Color Hard Palate Description: Normal Color Gag Reflex: Strong Bite Reflex: Present Velopharyngeal Movement: Normal Laryngeal Elevation: WFL Laryngeal Movement: Able to Palpate Needs Assistance: Yes Rate of Intake: WFL Bolus Size: WFL Labial Seal: WFL Chewing: WFL Oral Prep Time: WFL A-P Transit: WFL Timing of Swallow: WFL Coughing/Throat Clear: No Change in Voice: No Other Findings/Remarks: 33 yo male seen at bedside for swallow eval to r/o dysphagia with family member present for this session. Pt is verbal A&Ox3, cooperative somewhat reliable yes / no response and able to follow some directives with some difficulty. PMHX includes; [place] (2017) CVA (2018), aphasia, DM, HLD. Admitted to [facility] for right sided sensory loss. Limited speech sample secondary to aphasia ( family member reports that patient is back to baseline). Vocal quality is functional for the environment with speech parameters WNL. Volitional airway protection (without bolus) and swallow is WNL. Hypothyroid elevation was present/strong to palpation of the anterior neck. Oral and facial features are within functional limits for speech and swallowing purposes.Current diet: soft solids with thin liquids. Pt given PO trials of pureed,and soft solids with total assistance revealed, adequate bolus formation and A P transport with a timely pharyngeal swallow (1 -2 second average). No change in voicing or respiration after the swallow. Pt given PO trials of ice chips via spoon, thin liquids via cup and straw with total assistance revealed good acceptance, adequate labial containment / bolus control and, A P transport with a timely pharyngeal swallow (1-2 second average). No change in voicing or respiration after the swallow. Recommendations - Speech Evaluation, Impression/Plan Impression: Pt presents with mild oral preparation phase dysphagia for solids and liquids. No evidence of aspiration with any consistencies offer at this session. Expressive Aphasia status remains unchanged with simple responses. Recommended Therapies: Speech (if family member agrees with treatment plan) Hot Knife Foxing Cutter Goals: tolerate the least restrictive diet without s/s of aspiration. Short Term Goals: tolerate soft solids with thin liquids without s/s of aspiration Recommended Frequency for Therapy: Follow Up PRN - Dysphagia Impressions/Plan Swallowing Skills: Impaired Dysphagia Impressions: Mild Impairment, Risk of Aspiration *Silent aspiration: cannot be R/O at bedside Dysphagia Treatment Plan: Small Bites, Safe Rate, 1/2 tsp. at a time, Elevate HOB during feed, Other (monitor nutritional intake and pulmonary status. Oral care after meals) Dysphagia Evaluation Summary: Continue soft solids with thin liquids as tolerated. Observe standard aspiration precautions. Provide oral care after meals. Results given to nurse discharge, family member verbally and to PCP via chart. - Recommendations Diet Consistency: 1 - 2 Soft Items Medication Administration: Crushed with applesauce Liquids: Thin Liquids
--- NOTE | 2018-09-28 16:52 | ECHO ---
Name: GAYLA MURRAY Exam:Adult Echocardiogram Study Date: 09/28/2018 01:24 PM Age: 33 yrs Reason For Study: CVA WITH BUBBLE STUDY Height: 65 in Weight: 184 lb BSA: 1.9 m2 MMode/2D Measurements & Calculations IVSd: 0.80 cm Ao root diam: 2.5 cm LVIDd: 4.1 cm LA dimension: 3.0 cm LVIDs: 3.0 cm LVPWd: 0.78 cm EDV(Teich): 75.0 ml LVOT diam: 2.1 cm ESV(Teich): 34.8 ml Doppler Measurements & Calculations Ao V2 max: 132.8 cm/sec LV V1 max P.7 mmHg Ao max P.1 mmHg LV V1 mean P.3 mmHg Ao V2 mean: 95.2 cm/sec LV V1 max: 108.1 cm/sec Ao mean P.1 mmHg LV V1 mean: 70.6 cm/sec Ao V2 VTI: 23.5 cm LV V1 VTI: 16.7 cm EVANS(I,D): 2.4 cm2 EVANS(V,D): 2.7 cm2 MR max tomasz: 305.7 cm/sec SV(LVOT): 55.2 ml MR max P.4 mmHg Med Peak E' Tomasz: 7.5 cm/sec Lat Peak E' Tomasz: 9.1 cm/sec Procedure The study was technically adequate with some images being suboptimal in quality. Left Ventricle The left ventricular size, thickness and function are normal. Ejection Fraction = 55-60%. Right Ventricle The right ventricle is normal in size and function. Atria Normal left and right atrial size and function. Injection of contrast documented no interatrial shunt . Agitated saline injection does not show interatrial or intrapulmonary shunt. Mitral Valve The mitral valve is grossly normal. There is trace mitral regurgitation. Tricuspid Valve The tricuspid valve is not well visualized, but is grossly normal. There is trace tricuspid regurgita tion. There was insufficient TR detected to calculate RV systolic pressure. Aortic Valve The aortic valve is not well visualized. The aortic valve opens well. The aortic valve is trileaflet. Trace aortic regurgitation. Pulmonic Valve The pulmonic valve is not well visualized. Great Vessels The aortic root is normal size. Pericardium/Pleura Trivial pericardial effusion not hemodynamically significant. Interpretation Summary There is no comparison study available. The left ventricular size, thickness and function are normal The right ventricle is normal in size and function. Trace aortic regurgitation. There is trace mitral regurgitation. Ejection Fraction = 55-60%. There is trace tricuspid regurgitation. Injection of contrast documented no interatrial shunt. Trivial pericardial effusion not hemodynamically significant Agitated saline injection does not show interatrial or intrapulmonary shunt Jaleel Wells MD 09/28/2018 04:52 PM
[2018-09-28] MEDS ORDERED: ACETAMINOPHEN 325 MG TABLET (FP) ONE (17:18)
--- NOTE | 2018-09-28 17:35 | DS ---
Physical Exam: SUBJECTIVE: Patient seen and examined at bedside. Pt woke up this am with a cough and sore throat. Pt still has sensory loss on his right body and face. pt also states he experiences hyperalgesia on the right extremities. OBJECTIVE: Vital Signs Period Temp Pulse Resp BP Sys/Berumen Pulse Ox Last 24 Hr 97.9 F-99.5 F 75-102 16-20 94-124/52-74 99-99 PHYSICAL EXAM GENERAL: The patient is awake, alert, and fully oriented, in no acute distress. HEAD: Normal with no signs of trauma. ENT:oropharynx clear without exudates, moist mucous membranes. LUNGS: Breath sounds equal, clear to auscultation bilaterally, no wheezes, no crackles, no accessory muscle use. HEART: Regular rate and rhythm, S1, S2 without murmur, rub or gallop. ABDOMEN: Soft, nontender, nondistended, normoactive bowel sounds EXTREMITIES: 2+ pulses, warm, well-perfused, no edema. NEUROLOGICAL: Cranial nerves II through XII grossly intact. SKIN: Warm, dry, normal turgor, no rashes or lesions noted. LABS Laboratory Results - last 24 hr 09/28/18 09/28/18 09/28/18 08:47 10:00 17:16 WBC 9.2 RBC 4.87 Hgb 14.2 Hct 42.7 MCV 87.7 MCH 29.1 MCHC 33.2 RDW 12.7 Plt Count 230 MPV 8.6 Sodium 140 Potassium 4.3 Chloride 108 H Carbon Dioxide 23 Anion Gap 9 BUN 9.5 Creatinine 0.8 Est GFR (CKD-EPI)AfAm 134.14 Est GFR (CKD-EPI)NonAf 115.74 POC Glucometer 114 Random Glucose 127 H Calcium 8.9 CTA Neck: Unremarkable examination. There is no evidence of hemodynamically significant stenosis at the common carotid bifurcation, bilaterally. There is no evidence of dissection in the vertebral artery and carotid artery, bilaterally. MRA brain 1. Signal abnormalities within the corpus callosum extending into the subjacent anterior left frontal lobe as described above may be an early subacute infarct in the appropriate clinical setting. Please correlate clinically and follow-up contrast-enhanced MRI recommended to exclude other processes/lesions. 2. No definite flow identified in the left DENNIS callosomarginal branch. Diffusely smaller left DENNIS A2 segment may be attributed to hypoplasia, however, a nonspecific vasculopathy such as vasospasm cannot be entirely excluded. Cannot accurately evaluate for moderate to small vessel vasculitis on MRA. 3. Chronic left MCA and left DENNIS territory infarcts as described above HOSPITAL COURSE: Date of Admission:09/27/18 33 yo M w/ PMH of [place] (2017), CVA (2018) s/p thrombectomy w/ aphasia, DM, HLD, HTN brought into the ED by his for right sided sensory loss. Pt is aphasic and can only answer yes or no. pt was able to state his name and his location. Pt speech is his baseline according to his . According to , pt states this acute sensory loss began 4 days prior. The pt states it is not improving and he is noticing it more. the symptoms progressed to his R foot and is now beginning to affect his strength. Pt had CT showing the chronic encephalomalacia from prior stroke and MRI when admitted showing a new infarct in the left frontal lobe. The pt was out of the tPA window. The pt EKG was in NSR. pt also had an ECHO w/ bubble study which showed no abnormalities. The pt was followed by neuro. This pt will f/u outpt with neuro for further workup. Pt is recommended to continue on aspirin, plavix, and statin. The pt should continue monitoring his BP and glucose. Pt should continue lifestyle modifications to lower his cholesterol. for the pt HTN the pt should continue his metoprolol. The pt should continue his home medications a prescribed. 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 Your imaging revealed that you had a stroke. You were treated with aspirin, Plavix, and Lipitor. Medication Changes: 1. You should continue taking baby aspirin, plavix and lipitor as prescribed. Abnormal results: -Your MRI showed that you have a new stroke. your MRI also showed brain injury from your prior stroke. -Your blood work showed that you have high cholesterol and high triglycerides. Follow up with the following physicians: 1. Please follow up with your neurologist to monitor your symptoms from your stroke. 1. Please follow up with your primary care physician within 1 week. You will need to recheck your cholesterol/lipids Medications: 1. Please continue all your home medications as prescribed. Please return to the ER if you have any signs or symptoms of chest pain, shortness of breath, uncontrollable fever, chills, nausea, vomiting, numbness, tingling, or weakness in any part of your body, changes in vision, or slurred speech. Please return to the ER if symptoms persist, worsen, or new symptoms arise. Disposition: HOME - Home Medications Comprehensive Discharge Medication List: Ambulatory Orders Aspirin [Aspirin EC] 81 mg PO DAILY 09/26/18 Atorvastatin Ca [Lipitor] 80 mg PO HS 09/26/18 Clopidogrel Bisulfate [Plavix] 75 mg PO DAILY 09/26/18 Metformin HCl [Metformin HCl ER] 1,500 mg PO DAILY 09/26/18 Metoprolol Tartrate 25 mg PO BID 09/26/18 Insulin Glargine,Hum.rec.anlog [Wilfredo Andrea U-100] 28 units PEN HS This patient is new to me today: No Emergency Visit: No Critical Care patient: No - Discharge Referral Referred to [facility] No ATTENDING PHYSICIAN STATEMENT I saw and evaluated the patient. I reviewed the resident's note and discussed the case with the resident. I agree with the resident's findings and plan as documented. SUBJECTIVE: OBJECTIVE: ASSESSMENT AND PLAN:
== END 2018-09-28 18:34 | disposition home or self-care (01) | DRG 45 ==
LOC: JER 21:40 → JERBED 09-27 00:24 → J4S 09-27 02:47
PROVIDERS: ADMIT Internal Medicine
DX: I63.422 Cerebral infarction due to embolism of left anterior cerebral artery (principal); G81.91 Hemiplegia, unspecified affecting right dominant side; I10 Essential (primary) hypertension; E78.5 Hyperlipidemia, unspecified; E11.9 Type 2 diabetes mellitus without complications; I25.2 Old myocardial infarction; I25.10 Atherosclerotic heart disease of native coronary artery without angina pectoris; G93.89 Other specified disorders of brain; I69.320 Aphasia following cerebral infarction; R20.0 Anesthesia of skin
CPT/HCPCS: 36415; 70450-TC; 70498-TC; 70544-TC; 70551-TC; 71045-TC-FY; 80048; 80053; 81003; 82465; 82550; 82962; 83718; 83721; 84478; 84484; 85025; 85027; 85610; 86850; 86900; 86901; 93005; 93010; 93306-TC; 97116-GP; 97161-GP; 99283-25; J1644; J7030

== ENCOUNTER 2019-02-13 00:27 | Inpatient (IN) | payer OTHER ==
--- NOTE | 2019-02-13 00:29 | PDOC ---
History of Present Illness <Charlotte Peguero - Last Filed: 02/13/19 01:15> - General History Source: Patient - History of Present Illness Initial Comments: 33 yo M w/ PMH of [place] (2017), CVA (2018) s/p thrombectomy w/ residual aphasia/ Right sided weakness, DM, HLD, HTN presented to ED for left sided weakness x10 minutes prior to arrival. Partner at bedside reported pt stated he had chest pain, and at the same time developed acute left sided weakness. Partner reported that pt has full strength on the left despite having to go to PT for right sided weakness. He is able to answer yes and no questions 2/2 to aphasia. He reported the pain is constant, non-radiating, no alleviating or aggravating factors. He denied back pain, abdominal pain, shortness of breath, cough, fever. He admitted to slight lightheadedness/generalized weakness. Last known normal 1220. ROS General: denied fever, chills, generalized weakness. HEENT: denied sore throat, rhinorrhea, ear pain. Cardiovascular: admitted to chest pain. denied palpitations, syncope, diaphoresis. Respiratory: denied shortness of breath, cough, sputum production, hemoptysis. Gastrointestinal: denied abdominal pain, nausea, vomiting, diarrhea, constipation, blood in stool. Genitourinary: denied dysuria, increased urinary frequency, hematuria, urinary incontinence, flank pain. Back: denied back pain. Musculoskeletal: denied joint pain, muscle pain, joint swelling. Neurological: admitted to weakness. denied headache, dizziness, numbness, tingling. Integumentary: denied rash, laceration, abrasion. Hematologic/Lymphatic: denied bruising or bleeding. PE Constitutional: Well-nourished, Well-developed, appearing stated age. HEENT: head is normocephalic, atraumatic. EOMI. PERRLA. Neck: supple. Full ROM. Cardiovascular: regular heart rhythm. no murmurs. no pericardial friction rub. Respiratory: clear to auscultation bilaterally. no crackles, rhonchi or wheezing. no stridor. Gastrointestinal: soft, nontender. normal bowel sounds. no rebound, guarding, masses. Extremities: peripheral pulses intact. no lower extremity edema. Neurological: alert. follows commands. protecting airway. See NIH stroke scale. Psych: awake, alert. follows commands. answers questions appropriately with yes/ no answers. <Janette Parker - Last Filed: 02/13/19 15:06> - General Stated Complaint: CHEST PAIN Time Seen by Provider: 02/13/19 00:29 NIH Stroke Scale - Last Known Well Date/Time & Onset Date Last Known Well: 02/13/19 Time Last Known Well: 00:20 - Initial Evaluation Level of consciousness: Alert Ask patient the month and their age: Both incorrect Ask patient to open & close eyes; make fist and let go: Obeys both correctly Best gaze (horizontal eye movement): Normal Visual field testing: No visual field loss Facial paresis (Show teeth/raise eyebrows/close eyes tight): Normal symmetrical movement Motor Function: Left Arm: No movement Motor Function: Right Arm: Drift Motor Function: Left Leg: Some effort against gravity Motor Function: Right Leg: Drift Limb Ataxia: Untestable (Joint fused or limb amputated), explain: Sensory(Use pinprick test arms,legs,trunk,face/side to side): Mild to moderate decrease in sensation Best language (Describe picture, name items, read sentences): Severe aphasia Dysarthria (read several words): Intubated or other physical barrierr, explain: (Aphasia at baseline) Extinction and Inattention: No abnormality - Total Score NIH Stroke Scale Score: 13 <aJnette Parker - Last Filed: 02/13/19 15:06> tPA Exclusion Checklist 0-3hr - Time Elapsed Date last known well: 02/13/19 Time last known well: 00:20 Elaspsed time: Day(s) and 14 Hour(s) and 45 Minutes - Thrombolytic Therapy Candidate Is the patient eligible for Thrombolytic Therapy?: Yes - Exclusion Criteria 0-3hr SBP greater than 185 or DBP greater than 110mmHg despite tx: No Recent IC/spinal surgery,head trauma or stroke w/in last 3mo: No Hx of previous IC hemorrhage, IC neoplasm, AVM or aneurysm: No Active internal bleeding: No Blding diathesis(low plt ct, inc PTT,INR>1.7 or use of NOAC): No Symptoms suggest subarachnoid hemorrhage: No CT demonstrates multilobar infarct(>1/3 cerebral hemiphere): No Arterial puncture at noncompressible site in previous 7 days: No Blood glucose concentration less than 50mg/dL (2.7mmol/L): No - Relative Exclusion Criteria 0-3h Life expectancy <1yr/severe co-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: No : No Patient/family refused: No Rapid improvement: No Stroke severity too mild: No Recent acute [place] (w/in previous 3 months): No Seizure at onset with postictal residual neuro impairments: No Major surgery or serious trauma w/in previous 14 days: No Recent GI or hemorrhage (w/in previous 21 days): No <Janette Parker - Last Filed: 02/13/19 15:06> Past History <Charlotte Peguero - Last Filed: 02/13/19 01:15> - Psycho Social/Smoking Cessation Hx Smoking History: Never smoked Have you smoked in the past 12 months: No Cigars Per Day: 0 Hx Alcohol Use: No Drug/Substance Use Hx: No Substance Use Type: None Hx Substance Use Treatment: No <Janette Parker - Last Filed: 02/13/19 15:06> - Past Medical History Allergies/Adverse Reactions: Allergies Allergy/AdvReac Type Severity Reaction Status Date / Time dulaglutide [From [facility]] Allergy Verified 02/13/19 00:40 Home Medications: Ambulatory Orders Aspirin [Aspirin EC] 81 mg PO DAILY 09/26/18 Atorvastatin Ca [Lipitor] 80 mg PO HS 09/26/18 Clopidogrel Bisulfate [Plavix] 75 mg PO DAILY 09/26/18 Metoprolol Tartrate 25 mg PO BID 09/26/18 metFORMIN HCL [Metformin HCl ER] 1,500 mg PO DAILY 09/26/18 Insulin Glargine,Hum.rec.anlog [Basaglar Kwikpen U-100] 28 units PEN HS *Physical Exam - Vital Signs Last Vital Signs Temp Pulse Resp BP Pulse Ox 82 20 144/89 99 02/13/19 00:39 02/13/19 00:39 02/13/19 00:39 02/13/19 00:39 <Charlotte Peguero - Last Filed: 02/13/19 01:15> ED Treatment Course - LABORATORY CBC & Chemistry Diagram: 02/13/19 00:00 02/13/19 00:02 - ADDITIONAL ORDERS Additional order review: Laboratory Results 02/13/19 00:46 POC Glucometer 197 02/13/19 02/13/19 00:46 00:00 RBC 5.17 MCV 85.7 MCHC 33.7 RDW 12.6 MPV 8.2 Neutrophils % 41.0 L D Lymphocytes % 46.0 H D Monocytes % 9.7 Eosinophils % 2.6 D Basophils % 0.7 POC Glucometer 197 <Charlotte Peguero - Last Filed: 02/13/19 01:15> - LABORATORY CBC & Chemistry Diagram: 02/13/19 00:00 02/13/19 00:02 <Janette Parker - Last Filed: 02/13/19 15:06> Medical Decision Making - Critical Care Time Total Critical Care Time (minutes): 60 Critical Care Statement: The care of this patient involved high complexity decision making to prevent further life threatening deterioration of the patient 's condition and/or to evaluate & treat vital organ system(s) failure or risk of failure. - Medical Decision Making 33 year old male with above PMH presented to ED for acute left sided weakness and chest pain at 1220 tonight. Initial Vital Signs Pulse Resp BP Pulse Ox 82 20 144/89 99 02/13/19 00:39 02/13/19 00:39 02/13/19 00:39 02/13/19 00:39 CBC WBC 8.9 K/mm3 (4.0-10.0) 02/13/19 00:00 RBC 5.17 M/mm3 (4.00-5.60) 02/13/19 00:00 Hgb 14.9 GM/dL (11.7-16.9) 02/13/19 00:00 Hct 44.3 % (35.4-49) 02/13/19 00:00 MCV 85.7 fl (80-96) 02/13/19 00:00 MCH 28.8 pg (25.7-33.7) 02/13/19 00:00 MCHC 33.7 g/dl (32.0-35.9) 02/13/19 00:00 RDW 12.6 % (11.9-15.9) 02/13/19 00:00 Plt Count 292 K/MM3 (134-434) D 02/13/19 00:00 MPV 8.2 fl (7.5-11.1) 02/13/19 00:00 Absolute Neuts (auto) 3.6 K/mm3 (1.5-8.0) 02/13/19 00:00 Neutrophils % 41.0 % (42.8-82.8) L D 02/13/19 00:00 Lymphocytes % 46.0 % (8-40) H D 02/13/19 00:00 Monocytes % 9.7 % (3.8-10.2) 02/13/19 00:00 Eosinophils % 2.6 % (0-4.5) D 02/13/19 00:00 Basophils % 0.7 % (0-2.0) 02/13/19 00:00 Nucleated RBC % 0 % (0-0) 02/13/19 00:00 CMP Sodium 141 mmol/L (136-145) 02/13/19 00:02 Potassium 3.8 mmol/L (3.5-5.1) 02/13/19 00:02 Chloride 106 mmol/L (98-107) 02/13/19 00:02 Carbon Dioxide 28 mmol/L (21-32) 02/13/19 00:02 Anion Gap 7 MMOL/L (8-16) L 02/13/19 00:02 BUN 11.5 mg/dL (7-18) 02/13/19 00:02 Creatinine 1.0 mg/dL (0.55-1.3) 02/13/19 00:02 Est GFR (CKD-EPI)AfAm 112.51 02/13/19 00:02 Est GFR (CKD-EPI)NonAf 97.08 02/13/19 00:02 POC Glucometer 197 UNITS (80-120) 02/13/19 00:46 Random Glucose 203 mg/dL (74-106) H 02/13/19 00:02 Calcium 9.1 mg/dL (8.5-10.1) 02/13/19 00:02 Total Bilirubin 0.4 mg/dL (0.2-1) 02/13/19 00:02 AST 22 U/L (15-37) 02/13/19 00:02 ALT 23 U/L (13-61) 02/13/19 00:02 Alkaline Phosphatase 75 U/L (45-117) 02/13/19 00:02 Creatine Kinase 143 U/L (26-308) 02/13/19 00:02 Troponin I < 0.02 ng/ml (0.00-0.05) 02/13/19 00:02 Total Protein 7.3 g/dl (6.4-8.2) 02/13/19 00:02 Albumin 3.9 g/dl (3.4-5.0) 02/13/19 00:02 Triglycerides 391 mg/dL (0-150) H 02/13/19 00:02 Cholesterol 129 mg/dL (50-200) 02/13/19 00:02 Total LDL Cholesterol 54 mg/dL (5-100) 02/13/19 00:02 HDL Cholesterol 46 mg/dL (40-60) 02/13/19 00:02 CT head negative for acute infarct or bleed per radiology dental professional. Dr. Smith consulted, reported he would give TPA if no aortic dissection. He reported he would transfer for thrombectomy if he has a large clot. CTA chest/abdomen/pelvis/brain pending. 02/13/19 01:50 CTA chest/abdomen/pelvis showed no aortic dissection by Dr. Peguero's read. Medications ordered: 9 mg TPA to be given over 1 minute, 81 mg TPA to be given over 1 hour I discussed the risks/benefits with the patient and the partner at bedside. They both agreed with plan for care. Pt signed out to Dr. Sotelo. <Janette Parker - Last Filed: 02/13/19 15:06> Discharge - Discharge Information Problems reviewed: Yes <Charlotte Peguero - Last Filed: 02/13/19 01:15> - Discharge Information Problems reviewed: Yes - Admission Yes <Janette Parker - Last Filed: 02/13/19 15:06> - Discharge Information Clinical Impression/Diagnosis: Left-sided weakness Chest pain Qualifiers: Chest pain type: unspecified Qualified Code(s): R07.9 - Chest pain, unspecified Stroke Qualifiers: CVA mechanism: thrombosis Precerebral and cerebral artery: middle cerebral artery Laterality of affected vessel: left Qualified Code(s): I63.312 - Cerebral infarction due to thrombosis of left middle cerebral artery Condition: Critical
--- NOTE | 2019-02-13 00:52 | PDOC ---
Documentation entered by Haresh Bernstein SCRIBE, acting as scribe for Charlotte Peguero MD. Charlotte Peguero MD: This documentation has been prepared by the Aamndeep chen Nirvannie, SCRIBE, under my direction and personally reviewed by me in its entirety. I confirm that the documentation accurately reflects all work, treatment, procedures, and medical decision making performed by me. Attending Attestation - Resident Resident Name: Janette Parker - ED Attending Attestation I have performed the following: I have examined & evaluated the patient, The case was reviewed & discussed with the resident, I agree w/resident's findings & plan - HPI HPI: 02/13/19 00:53 33 yo M w/ PMH of [place] (2017), CVA (2018) s/p thrombectomy w/ residual aphasia/ Right sided weakness, DM, HLD, HTN presented to ED for left sided weakness x10 minutes prior to arrival, with chest pain. he was unable to dress himself tonight using his left side (which is his normal side). Spouse reported that pt has full strength on the left side despite having to go to PT for right sided weakness from prior stroke. He is able to answer yes and no questions 2/2 to aphasia. He reported the pain is constant, non-radiating, no alleviating or aggravating factors. He denied back pain, abdominal pain, shortness of breath, cough, fever. He admitted to slight lightheadedness/ generalized weakness. 02/13/19 01:20 - Physicial Exam PE: 02/13/19 00:49 Agree with the resident's HPI and PE as documented in the electronic medical record. in mild acute distress, NCAT, EOMI, PERRL, nl conjunctiva, anicteric; neck supple. lungs clear, RRR, no murmur, abdomen soft nontender. no rebound, guarding. Back nontender. No peripheral edema. normal color for ethnicity, WWP. alert, answers yes/no. aphasic. chronic RUE and RLE hemiparetic. acute LLE and LUE 1/5, min effort against gravity. normal bulk and tone. sensation difficult to assess with aphasia. decreased sensation to RUE and RLE ( chronic) 02/19/19 07:35 - Critical Care Time Total Critical Care Time: 60 (acute ischemic stroke) Critical Care Statement: The care of this patient involved high complexity decision making to prevent further life threatening deterioration of the patient 's condition and/or to evaluate & treat vital organ system(s) failure or risk of failure. - Medical Decision Making 02/13/19 00:48 Vital Signs Temp Pulse Resp BP Pulse Ox 82 20 144/89 99 02/13/19 00:39 02/13/19 00:39 02/13/19 00:39 02/13/19 00:39 Differential diagnosis includes CVA, SAH, ICH, carotid dissection, vertebral dissection, aneurysm, ACS, arrhythmia, N STEMI/VT, aortic dissection, pulmonary embolism, metabolic/electrolyte derangements, infection, anemia NIHSS last normal at 1220am, onset of sx ~10 minutes prior to presentation within 3 hour window last ischemic stroke ~4 months ago. fingerstick normal here. acute neuro sx focally involving left side (new) neuro cs to Dr Smith director of accreditation, CTA to further elucidate large vessel occlusion will also need CTA chest and abdomen for acute aortic dissection given his chest pain and neurologic findings pending stat reads prelim CT head d/w IOC attg Dr Car- chronic left frontal lobe infarction, no new bleed/ICH/SAH, Left temporal and basal ganglia stroke, no large territory for subacute stroke. However cannot rule out small acute stroke and given acute symptoms we will consider TPA after CTA to r/o aortic dissection. CTA prelim read by me, pending IOC rads neg for acute aortic dissection or bleed CTA head for large vessel occlusion - if present, transfer for thrombectomy 02/13/19 01:52 - starting TPA 90mg total given time window <3 hours from onset and stroke burden, NIHSS documented as 13 (see note). no contraindications as documented, so will proceed with systemic TPA Heart Score/ECG Review #1 ECG reviewed & interpreted by me at: 00:35 General ECG Interpretation: Sinus Rhythm, Normal Rate, Normal Intervals Compared to previous ECG there are: No significant change 02/13/19 00:48 EKG normal sinus rhythm, at 91 bpm no interval abnormalities, narrow QRS, ST and T wave segments and morphology normal, small ST elevations in inferior lateral leads, - similar to prior no reciprocal depressions. Nonspecific T wave abnormalities - unchanged from prior EKG.
[2019-02-13] MEDS ORDERED: SODIUM CHLORIDE 1,000 ML IV SCH (01:00)
[2019-02-13 01:13] LABS: BASO % 0.7 % (0-2.0); EOS % 2.6 % (0-4.5); HEMATOCRIT 44.3 % (35.4-49); HEMOGLOBIN 14.9 GM/dL (11.7-16.9); MCH 28.8 pg (25.7-33.7); MCHC 33.7 g/dl (32.0-35.9); MEAN CELL VOLUME 85.7 fl (80-96); MEAN PLT VOLUME 8.2 fl (7.5-11.1); MONO % 9.7 % (3.8-10.2); PLATELET COUNT 292 K/MM3 (134-434); RBC 5.17 M/mm3 (4.00-5.60); RDW 12.6 % (11.9-15.9); WHITE BLOOD COUNT 8.9 K/mm3 (4.0-10.0)
[2019-02-13 01:31] LABS: ALBUMIN 3.9 g/dl (3.4-5.0); ALK PHOS 75 U/L (45-117); ANION GAP 7 MMOL/L (8-16); BILIRUBIN,TOTAL 0.4 mg/dL (0.2-1); BLOOD UREA NITROGEN 11.5 mg/dL (7-18); CALCIUM 9.1 mg/dL (8.5-10.1); CHLORIDE 106 mmol/L (98-107); CHOLESTEROL 129 mg/dL (50-200); CO2 28 mmol/L (21-32); GLUCOSE,RANDOM 203 mg/dL (74-106); HDL CHOLESTEROL 46 mg/dL (40-60); LDL CHOLESTEROL (ONLY SJRH) 54 mg/dL (5-100); POTASSIUM 3.8 mmol/L (3.5-5.1); SGOT/AST 22 U/L (15-37); SGPT/ALT 23 U/L (13-61); SODIUM 141 mmol/L (136-145); TOT PROT 7.3 g/dl (6.4-8.2); TRIGLYCERIDES 391 mg/dL (0-150)
[2019-02-13 01:38] LABS: INR 0.97 (0.83-1.09); PROTHROMBIN TIME (PATIENT) 11.5 SEC (9.7-13.0)
[2019-02-13] MEDS ORDERED: ALTEPLASE 50 MG VIAL IVPB ONE ×2 (01:39→01:40)
[2019-02-13 01:41] LABS: ACTIVATED PTT 27.8 SECONDS (25.2-36.5)
[2019-02-13] MEDS ORDERED: ALTEPLASE 100MG 100 MG IVPB ONE (01:46)
--- NOTE | 2019-02-13 01:50 | PDOC ---
*Physical Exam - Vital Signs Last Vital Signs Temp Pulse Resp BP Pulse Ox 98.0 F 73 19 104/72 98 02/13/19 03:27 02/13/19 03:27 02/13/19 03:27 02/13/19 03:27 02/13/19 03:27 <Radha Bower - Last Filed: 02/13/19 04:12> - Vital Signs Last Vital Signs Temp Pulse Resp BP Pulse Ox 82 20 144/89 99 02/13/19 00:39 02/13/19 00:39 02/13/19 00:39 02/13/19 00:39 - Physical Exam General Appearance: Yes: Nourished, Appropriately Dressed. No: Apparent Distress HEENT: positive: EOMI, MADDI. negative: Normal ENT Inspection Neck: positive: Supple Respiratory/Chest: positive: Lungs Clear Cardiovascular: positive: Regular Rhythm, Regular Rate, S1, S2 Vascular Pulses: Dorsalis-Pedis (R): 2+, Doralis-Pedis (L): 2+ Gastrointestinal/Abdominal: positive: Normal Bowel Sounds, Soft. negative: Tender Rectal Exam: positive: deferred Lymphatic: negative: Adenopathy Musculoskeletal: positive: Decreased Range of Motion Extremity: positive: Normal Capillary Refill, Normal Inspection. negative: Normal Range of Motion Integumentary: positive: Normal Color, Dry, Warm Neurologic: positive: Fully Oriented, Alert, Normal Mood/Affect, Facial Droop, Numbness, Sensory Deficit. 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 intact, Finger to Nose, Confused, Disoriented <Miguel Sotelo - Last Filed: 02/13/19 06:18> Heart Score/ECG Review - ECG Intrepretation Rhythm: Regular Rhythm - [place]: Normal - P and AK Prominent R with upright T in V1 (true posterior RI): No Delta Wave(s) Present: No WPW: No - QRS Poor R Wave Progression: No Q Wave Present: Yes - ST and T Non Specific ST-T Wave changes: Yes T Wave Elevation Suggest: Reciprocal Changes Flattened T Waves: Yes Prolonged Q-T Interval: No - ECG Impressions Normal ECG: No Non-specific ST Elevation: Yes Ischemic Changes: Yes Bradycardia: No Torsades catherine Pointes: No WPW: No <Miguel Sotelo - Last Filed: 02/13/19 06:18> ED Treatment Course - LABORATORY CBC & Chemistry Diagram: 02/13/19 00:00 02/13/19 00:02 - ADDITIONAL ORDERS Additional order review: Laboratory Results 02/13/19 02/13/19 02/13/19 00:46 00:20 00:02 PT with INR 11.50 INR 0.97 PTT (Actin FS) 27.8 Sodium Potassium Chloride Carbon Dioxide Anion Gap BUN Creatinine Est GFR (CKD-EPI)AfAm Est GFR (CKD-EPI)NonAf POC Glucometer 197 Random Glucose Calcium Total Bilirubin AST ALT Alkaline Phosphatase Creatine Kinase Troponin I Total Protein Albumin Triglycerides Cholesterol Cancelled Total LDL Cholesterol HDL Cholesterol Blood Type Antibody Screen 02/13/19 02/13/19 00:02 00:00 PT with INR INR PTT (Actin FS) Sodium 141 Potassium 3.8 Chloride 106 Carbon Dioxide 28 Anion Gap 7 L BUN 11.5 Creatinine 1.0 Est GFR (CKD-EPI)AfAm 112.51 Est GFR (CKD-EPI)NonAf 97.08 POC Glucometer Random Glucose 203 H Calcium 9.1 Total Bilirubin 0.4 AST 22 ALT 23 Alkaline Phosphatase 75 Creatine Kinase 143 Troponin I < 0.02 Total Protein 7.3 Albumin 3.9 Triglycerides 391 H Cholesterol 129 Total LDL Cholesterol 54 HDL Cholesterol 46 Blood Type B POSITIVE Antibody Screen Negative 02/13/19 02/13/19 00:46 00:00 RBC 5.17 MCV 85.7 MCHC 33.7 RDW 12.6 MPV 8.2 Neutrophils % 41.0 L D Lymphocytes % 46.0 H D Monocytes % 9.7 Eosinophils % 2.6 D Basophils % 0.7 POC Glucometer 197 - Medications Given in the ED: ED Medications Discontinued Medications Generic Name Dose Route Start Last Admin Trade Name Freq PRN Reason Stop Dose Admin Alteplase, Recombinant 9 mg 02/13/19 01:39 02/13/19 02:07 Tpa - IVPB 02/13/19 01:40 9 mg ONCE ONE Administration Alteplase, Recombinant 81 mg 02/13/19 01:40 02/13/19 03:04 Tpa - IVPB 02/13/19 01:41 81 mg ONCE ONE Administration <Radha Bower - Last Filed: 02/13/19 04:12> - LABORATORY CBC & Chemistry Diagram: 02/13/19 00:00 02/13/19 00:02 - ADDITIONAL ORDERS Additional order review: Laboratory Results 02/13/19 02/13/19 02/13/19 00:46 00:20 00:02 PT with INR 11.50 INR 0.97 PTT (Actin FS) 27.8 Sodium Potassium Chloride Carbon Dioxide Anion Gap BUN Creatinine Est GFR (CKD-EPI)AfAm Est GFR (CKD-EPI)NonAf POC Glucometer 197 Random Glucose Calcium Total Bilirubin AST ALT Alkaline Phosphatase Creatine Kinase Troponin I Total Protein Albumin Triglycerides Cholesterol Cancelled Total LDL Cholesterol HDL Cholesterol 02/13/19 00:02 PT with INR INR PTT (Actin FS) Sodium 141 Potassium 3.8 Chloride 106 Carbon Dioxide 28 Anion Gap 7 L BUN 11.5 Creatinine 1.0 Est GFR (CKD-EPI)AfAm 112.51 Est GFR (CKD-EPI)NonAf 97.08 POC Glucometer Random Glucose 203 H Calcium 9.1 Total Bilirubin 0.4 AST 22 ALT 23 Alkaline Phosphatase 75 Creatine Kinase 143 Troponin I < 0.02 Total Protein 7.3 Albumin 3.9 Triglycerides 391 H Cholesterol 129 Total LDL Cholesterol 54 HDL Cholesterol 46 02/13/19 02/13/19 00:46 00:00 RBC 5.17 MCV 85.7 MCHC 33.7 RDW 12.6 MPV 8.2 Neutrophils % 41.0 L D Lymphocytes % 46.0 H D Monocytes % 9.7 Eosinophils % 2.6 D Basophils % 0.7 POC Glucometer 197 <Miguel Sotelo - Last Filed: 02/13/19 06:18> Medical Decision Making - Medical Decision Making 02/13/19 03:37 Patient Name: GAYLA MURRAY THIS IS A PRELIMINARY REPORT FROM [facility] DATE OF SERVICE: 2019-02-13 01:16:56 IMAGES: [id number] EXAM: CT angiogram head and CT angiogram of the chest, abdomen and pelvis with and without contrast HISTORY: Chest pain and left-sided weakness COMPARISON: Unenhanced head CT obtained earlier in the shift FINDINGS: CTA head: Old left MCA distribution infarct is noted. The right and left anterior, middle and posterior cerebral arteries are normal without clot, occlusion, high-grade stenosis or discrete aneurysm formation. The distal vertebrobasilar system is normal. The distal right and left internal carotid arteries are patent. There are no areas of abnormally increased or decreased enhancement. CTA chest:There is no aortic aneurysm or dissection. No obvious PE but the study was not protocoled to evaluate the pulmonary arteries. Heart size is normal. The trachea and bronchi are patent. There is no pleural or pericardial effusion. The lungs are clear. No fractures identified. CTA abdomen and pelvis:Normal liver, gallbladder, pancreas, spleen, adrenal glands and kidneys. The stomach and abdominal small and large bowel are normal. There is no aortic dissection or aneurysm. There is no significant retroperitoneal lymphadenopathy. The pelvic small and large bowel are normal. The appendix is normal. The urinary bladder and prostate gland are normal. No pelvic free fluid is identified. There is no significant pelvic lymphadenopathy. IMPRESSION: No vascular pathology in the head. Old left MCA infarct. No acute pathology in the chest, abdomen or pelvis <Radha Bower - Last Filed: 02/13/19 04:12> - Medical Decision Making Patient signed out to me from Dr. Peguero and Elena currently receiving TPA for CVA pending reads for CTA head, chest/abd Plan: if CTA head shows large filling defect in M1 category plan is to transfer patient to a tertiary care center for neurointerventionalist. if CTA head does not show large filling defect suggestive of clot which can be removed by neurointervention we will keep the patient at [facility] and admit him to the ICU CT read: No large filling defect Re-assessment: The patient is able to move his left arm and leg significantly more than he was able to upon entrance to the ED. He is still not able to squeeze his left hand well but he can move his entire arm with ease and is able to lift his left leg easily without any difficulty. Disposition: Will admit to ICU - Spoke with hospitalist team and ICU resident. - Patient accepted for admission. <Miguel Sotelo - Last Filed: 02/13/19 06:18> Discharge - Discharge Information Problems reviewed: Yes - Admission Yes <Radha Bower - Last Filed: 02/13/19 04:12> - Discharge Information Problems reviewed: Yes - Admission Yes <Miguel Sotelo - Last Filed: 02/13/19 06:18> - Discharge Information Clinical Impression/Diagnosis: Left-sided weakness Chest pain Qualifiers: Chest pain type: unspecified Qualified Code(s): R07.9 - Chest pain, unspecified Stroke Qualifiers: CVA mechanism: thrombosis Precerebral and cerebral artery: middle cerebral artery Laterality of affected vessel: left Qualified Code(s): I63.312 - Cerebral infarction due to thrombosis of left middle cerebral artery Condition: Critical
--- NOTE | 2019-02-13 03:58 | CONSULT ---
Consultation: REQUESTING PROVIDER: CONSULT REQUEST: We have been asked to medically evaluate this patient for ICU admission. 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 As per family patient complained of chest pain and feeling hot as well. Patient had no history of left sided weakness. Patient understands questions and is able to respond via nodding or shaking his head. His left sided weakness improved s/p TPA. He still complains of some facial numbness after receiving TPA but thinks it is improving. His last known normal was 0020 tonight. He walks with a cane at home. Patient denies any fevers, chills, abd pain, SOB, cough, loss of consciousness, N/V/D. Patient follows with Dr. Julien and Dr. Beckett at [facility]. He has never received TPA in the past. Patient had a recent ECHO performed. He was supposed to get a GISELLE bubble study but was denied by insurance. 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 stroke and Right sided weakness after the second stroke, DM, HLD, HTN FAMILY HISTORY Mother with history of stroke REVIEW OF SYSTEMS: as per HPI PHYSICAL EXAMINATION Vital Signs - 24 hr 02/13/19 02/13/19 02/13/19 00:39 02:07 02:25 Temperature 98.1 F Pulse Rate 82 Pulse Rate [ 99 H 69 Right Radial] Respiratory 20 23 H 19 Rate Blood Pressure 144/89 Blood Pressure 130/77 112/63 [Right Arm] O2 Sat by Pulse 99 99 97 Oximetry (%) 02/13/19 02/13/19 02/13/19 02:43 02:54 03:07 Temperature Pulse Rate Pulse Rate [ 72 70 97 H Right Radial] Respiratory 22 H 24 H 23 H Rate Blood Pressure Blood Pressure 107/67 104/61 108/67 [Right Arm] O2 Sat by Pulse 98 96 96 Oximetry (%) 02/13/19 02/13/19 02/13/19 03:27 03:40 03:55 Temperature 98.0 F Pulse Rate Pulse Rate [ 73 63 79 Right Radial] Respiratory 19 20 17 Rate Blood Pressure Blood Pressure 104/72 117/76 120/64 [Right Arm] O2 Sat by Pulse 98 96 96 Oximetry (%) GENERAL: Awake, alert, and fully oriented, in no acute distress. HEAD: Normal with no signs of trauma. EYES: PERRL, EOMI, no scleral icterus EARS, NOSE, THROAT: oropharynx clear without exudates. Moist mucous membranes. NECK: trachea midline LUNGS: CTA B/L, no wheezing, rhonchi, or rales. No accessory muscle use HEART: Regular rate and rhythm, normal S1 and S2 without murmur, rub or gallop. ABDOMEN: Soft, nontender, not distended, normoactive bowel sounds, no guarding, no rebound, no masses. No hepatomegaly or splenomegaly. MUSCULOSKELETAL: Normal range of motion at all joints. No bony deformities or tenderness. No CVA tenderness. EXTREMITIES: 2+ pulses, warm, well-perfused. No calf tenderness. No peripheral edema. NEUROLOGICAL: Cranial nerves II-XII intact. Aphasic speech. Residual right sided weakness from prior stroke. Unable to hold up right upper and lower extremity on exam. Able to hold up left upper and lower extremity without drift. AAOx3. Follows commands. Right side decrease in sensation, unable to differentiate between sharp and dull. On the left side, able to differentiate between sharp and dull. NIHSS 9 SKIN: Warm, dry, normal turgor Laboratory Results - last 24 hr 02/13/19 02/13/19 02/13/19 00:00 00:00 00:02 WBC 8.9 RBC 5.17 Hgb 14.9 Hct 44.3 MCV 85.7 MCH 28.8 MCHC 33.7 RDW 12.6 Plt Count 292 D MPV 8.2 Absolute Neuts (auto) 3.6 Neutrophils % 41.0 L D Lymphocytes % 46.0 H D Monocytes % 9.7 Eosinophils % 2.6 D Basophils % 0.7 Nucleated RBC % 0 PT with INR INR PTT (Actin FS) Sodium 141 Potassium 3.8 Chloride 106 Carbon Dioxide 28 Anion Gap 7 L BUN 11.5 Creatinine 1.0 Est GFR (CKD-EPI)AfAm 112.51 Est GFR (CKD-EPI)NonAf 97.08 POC Glucometer Random Glucose 203 H Calcium 9.1 Total Bilirubin 0.4 AST 22 ALT 23 Alkaline Phosphatase 75 Creatine Kinase 143 Troponin I < 0.02 Total Protein 7.3 Albumin 3.9 Triglycerides 391 H Cholesterol 129 Total LDL Cholesterol 54 HDL Cholesterol 46 Blood Type B POSITIVE Antibody Screen Negative 02/13/19 02/13/19 02/13/19 00:02 00:20 00:46 WBC RBC Hgb Hct MCV MCH MCHC RDW Plt Count MPV Absolute Neuts (auto) Neutrophils % Lymphocytes % Monocytes % Eosinophils % Basophils % Nucleated RBC % PT with INR 11.50 INR 0.97 PTT (Actin FS) 27.8 Sodium Potassium Chloride Carbon Dioxide Anion Gap BUN Creatinine Est GFR (CKD-EPI)AfAm Est GFR (CKD-EPI)NonAf POC Glucometer 197 Random Glucose Calcium Total Bilirubin AST ALT Alkaline Phosphatase Creatine Kinase Troponin I Total Protein Albumin Triglycerides Cholesterol Cancelled Total LDL Cholesterol HDL Cholesterol Blood Type Antibody Screen Active Medications Generic Name Dose Route Start Last Admin Trade Name Freq PRN Reason Stop Dose Admin Sodium Chloride 1,000 mls @ 42 mls/hr 02/13/19 01:00 02/13/19 01:13 Normal Saline - IV 42 mls/hr ASDIR SARAH Administration ASSESSMENT/PLAN: 33 y/o/m with PMHx of [place] (2017, s/p cardiac cath, no stent), 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 Patient s/p receiving TPA in ED with improving left sided weakness. #Neuro - hx of two prior CVAs. Residual aphasia and right sided weakness - new onset left sided weakness improving s/p TPA - TPA given in ED: 9 mg TPA to be given over 1 minute, 81 mg TPA to be given over 1 hour - CT head showing old left MCA distribution infarct, no acute vascular pathology noted - Neurology consulted, Dr. Smith. TPA given on recommendation of Neurology - MRI and MRA without contrast ordered for further workup of stroke - Carotid U/S ordered for evaluation of carotids - Neurochecks Q4Hr - Hold plavix and aspirin - NIHSS 6 - No blood draws for 24 hours post TPA #Cardio - CTA chest without evidence of PE, dissection, or other acute pathology - history of HLD, HTN - continue home dose of lipitor - hold HTN medications. maintain BP below 180/105 over next 24 hours #Respiratory - maintain SpO2 >90% #GI - CTA abd&pelvis without evidence of abdominal aortic dissection - no acute issues #Endo - hx DM - BGMs - ISS #Prophylaxis - SCDs #FEN - NS @75mls/hr - NPO until speech/swallow eval #Disposition - Admit for ICU monitoring Visit type - Emergency Visit Emergency Visit: Yes ED Registration Date: 02/13/19 Care time: The patient presented to the Emergency Department on the above date and was hospitalized for further evaluation of their emergent condition. - New Patient This patient is new to me today: Yes Date on this admission: 02/13/19 - Critical Care Critical Care patient: Yes Total Critical Care Time (in minutes): 36 Critical Care Statement: The care of this patient involved high complexity decision making to prevent further life threatening deterioration of the patient 's condition and/or to evaluate & treat vital organ system(s) failure or risk of failure. ATTENDING PHYSICIAN STATEMENT I saw and evaluated the patient. I reviewed the resident's note and discussed the case with the resident. I agree with the resident's findings and plan as documented. SUBJECTIVE: OBJECTIVE: ASSESSMENT AND PLAN:
--- NOTE | 2019-02-13 04:01 | PN ---
Teaching Attending Note Name of Resident: Staci Bender ATTENDING PHYSICIAN STATEMENT I saw and evaluated the patient. I reviewed the resident's note and discussed the case with the resident. I agree with the resident's findings and plan as documented. SUBJECTIVE: Patient is a 33 year old man with a PMH of [place] (2017 cardiac cath but no stents) , CVA (2018), s/p thrombectomy with residual aphasia/right-sided weakness, DM, HLD and HTN who presented to ER for left sided weakness for 10 minutes prior to arrival. Partner at bedside reported patient stated he had chest pain, and at the same time developed acute left sided weakness. Partner reported that patient has full strength on the left despite having to go to PT for right- sided weakness. He is able to answer yes and no questions due to aphasia. He reported the pain is constant, non-radiating, no alleviating or aggravating factors. He denied back pain, abdominal pain, shortness of breath, cough, fever. He admitted to slight lightheadedness/generalized weakness. Last known normal 12:20am. Ambulated with a cane and his mother had CVA. OBJECTIVE: Alert Vital Signs Period Temp Pulse Resp BP Sys/Berumen Pulse Ox Last 24 Hr 98.0 F-98.1 F 63-99 17-24 104-144/61-89 96-99 HEENT: No Jaundice, eye redness or discharge, PERRLA, EOMI. Normocephalic, atraumatic. External ears are normal and hearing is grossly intact. No nasal discharge. Neck: Supple, nontender. No palpable adenopathy or thyromegaly. No JVD Chest: Good effort. Clear to auscultation and percussion. Heart: Regular. No S3, rub or murmur Abdomen: Not distended, soft, nontender and no HSM. No rebound or guarding. Normal bowel sounds. Ext: Peripheral pulses intact. No leg edema. Skin: Warm and dry. No petechiae, rash or ecchymosis. Neuro: Alert. Oriented x3. CN 2-12 grossly intact. Right hemiparesis and diminished sensation. Post tPA he is able to hold up LUE and LLE without drift. Psych: Appropriate mood and affect. Good insight. Current Medications Generic Name Dose Route Start Last Admin Trade Name Freq PRN Reason Stop Dose Admin Sodium Chloride 1,000 mls @ 42 mls/hr 02/13/19 01:00 02/13/19 01:13 Normal Saline - IV 42 mls/hr ASDIR SARAH Administration Home Medications Medication Instructions Recorded Aspirin [Aspirin EC] 81 mg PO DAILY 09/26/18 Atorvastatin Ca [Lipitor] 80 mg PO HS 09/26/18 Clopidogrel Bisulfate [Plavix] 75 mg PO DAILY 09/26/18 Metoprolol Tartrate 25 mg PO BID 09/26/18 metFORMIN HCL [Metformin HCl ER] 1,500 mg PO DAILY 09/26/18 Insulin Glargine,Hum.rec.anlog 28 units PEN HS 09/28/18 [Basaglar Kwikpen U-100] Abnormal Lab Results 02/13/19 02/13/19 00:00 00:02 Neutrophils % 41.0 L D Lymphocytes % 46.0 H D Anion Gap 7 L Random Glucose 203 H Triglycerides 391 H ASSESSMENT AND PLAN: 1. CVA - CT head negative for acute infarct or bleed per radiology configuration management consultant. ER staff consulted Neurology and tPA was recommended. CTA chest/abdomen/pelvis showed no aortic dissection. Patient got 9 mg tPA given over 1 minute, and 81 mg tPA being given over 1 hour. CXR shows cardiomegaly, elevated right hemidiaphragm and wide mediastinum. EKG is NSR with no new changes. NIHSS score was 13 before tPA and improved after tPA. Being admitted to the ICU. Will continue neurochecks, hold aspirin and plavix, avoid blood draw for 24 hours, keep him NPO, do speech and swallow evaluation, consult PT, get ECHO, carotid doppler and brain MRI. 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 Will continue comprehensive care for all of patients comorbid conditions. 2. DM For now, we will hold the home diabetes drugs and implement sliding scale insulin regimen. Provide comprehensive diabetes care with patient teaching and counseling about the importance of adherence to prescribed diabetes regimen, euglycemia, eye care and foot care. 3. Obesity Counseled on the risks associated with obesity. Will provide patient all the necessary assistance, counseling and positive reinforcement to facilitate weight loss. Consult glost kiln operator. 4. Hypertension - Will practice permissive hypertension for now. Restart suitable outpatient antihypertensive drugs when clinically appropriate. Revise regimen to ensure [id number] excellent BP control and chief counsel patient on the injurious effects of uncontrolled hypertension. Nonpharmacologic measures to control hypertension like weight loss, salt restriction and exercise discussed. Importance of adherence to treatment regimen and attainment of normotension emphasized. 5. DVT prophylaxis - Will use thigh level SCD for now and commence SQ Heparin 5000 u tid in 24 hours. 6. Advance directives - Full code
[2019-02-13 04:07] LABS: URINE APPEARANCE CLEAR; URINE BILIRUBIN NEGATIVE (NEGATIVE); URINE COLOR YELLOW; URINE GLUCOSE (UA) 100 (NEGATIVE); URINE KETONE NEGATIVE (NEGATIVE)
[2019-02-13 04:08] LABS: PH,URINE 6.5 (5.0-8.0); URINE NITRITE NEGATIVE (NEGATIVE); URINE PROTEIN NEGATIVE (NEGATIVE)
[2019-02-13 04:09] LABS: EPI CELLS 0.3 /HPF (0-5/HPF); HYALINE CASTS 0.73 /lpf (0-8); URINE LEUK ESTERASE NEGATIVE (NEGATIVE); URINE RBC 0.3 /hpf (0-4); URINE WBC 0.2 /hpf (0-5)
--- NOTE | 2019-02-13 05:24 | HP ---
CHIEF COMPLAINT:LE weakness PCP: neor: dr. ruiz; cardio: dr humphrey HISTORY OF PRESENT ILLNESS: 33 y/o male with PMH of [place] (2017), CVA x2 (2018, 2019 with right sided residual deficits and aphasia) presents to the ED with complaints of chest pain and sudden onset left sided weakness- patient states he developed chest pain around 12:15 AM and then had sudden onset LUE weakness and could not lift anything up so he came to the ED within 10-15 minutes where he received TPA . of note, he had 2 prior CVAS where he suffered from complete right sided residual deficits and aphasia, he has outpatient cardio and neuro f/u where he was supposed to be undergoing a GISELLE with bubble study however his insurance doesn't cover it he denies any recent illnesses/travel or sick contacts ER course was notable for: (1)head CT and CTA negative for any acute stroke or large vessel occlusions (2)received TPA (3) Recent Travel: denies PAST MEDICAL HISTORY: see above PAST SURGICAL HISTORY: denies Social History: Smoking:denies Alcohol:denies Drugs: denies [facility]ies [facility] Allergy (Verified 02/13/19 00:40) HOME MEDICATIONS: Home Medications Medication Instructions Recorded Aspirin [Aspirin EC] 81 mg PO DAILY 09/26/18 Atorvastatin Ca [Lipitor] 80 mg PO HS 09/26/18 Clopidogrel Bisulfate [Plavix] 75 mg PO DAILY 09/26/18 Metoprolol Tartrate 25 mg PO BID 09/26/18 metFORMIN HCL [Metformin HCl ER] 1,500 mg PO DAILY 09/26/18 Insulin Glargine,Hum.rec.anlog 28 units PEN 09/28/18 [Tommyaglar Emre U-100] REVIEW OF SYSTEMS CONSTITUTIONAL: Absent: fever, chills, diaphoresis, generalized weakness, malaise, loss of appetite, weight change HEENT: Absent: rhinorrhea, nasal congestion, throat pain, throat swelling, difficulty swallowing, mouth swelling, ear pain, eye pain, visual changes CARDIOVASCULAR: Absent: chest pain, syncope, palpitations, irregular heart rate, lightheadedness , peripheral edema RESPIRATORY: Absent: cough, shortness of breath, dyspnea with exertion, orthopnea, wheezing, stridor, hemoptysis GASTROINTESTINAL: Absent: abdominal pain, abdominal distension, nausea, vomiting, diarrhea, constipation, melena, hematochezia GENITOURINARY: Absent: dysuria, frequency, urgency, hesitancy, hematuria, flank pain, genital pain MUSCULOSKELETAL: Absent: myalgia, arthralgia, joint swelling, back pain, neck pain SKIN: Absent: rash, itching, pallor HEMATOLOGIC/IMMUNOLOGIC: Absent: easy bleeding, easy bruising, lymphadenopathy, frequent infections ENDOCRINE: Absent: unexplained weight gain, unexplained weight loss, heat intolerance, cold intolerance NEUROLOGIC: Present: focal weakness Absent: headache, or paresthesias, dizziness, unsteady gait, seizure, mental status changes, bladder or bowel incontinence PSYCHIATRIC: Absent: anxiety, depression, suicidal or homicidal ideation, hallucinations. PHYSICAL EXAMINATION Vital Signs - 24 hr 02/13/19 02/13/19 02/13/19 00:39 02:07 02:25 Temperature 98.1 F Pulse Rate 82 Pulse Rate [ 99 H 69 Right Radial] Respiratory 20 23 H 19 Rate Blood Pressure 144/89 Blood Pressure 130/77 112/63 [Right Arm] O2 Sat by Pulse 99 99 97 Oximetry (%) 02/13/19 02/13/19 02/13/19 02:43 02:54 03:07 Temperature Pulse Rate Pulse Rate [ 72 70 97 H Right Radial] Respiratory 22 H 24 H 23 H Rate Blood Pressure Blood Pressure 107/67 104/61 108/67 [Right Arm] O2 Sat by Pulse 98 96 96 Oximetry (%) 02/13/19 02/13/19 02/13/19 03:27 03:40 03:55 Temperature 98.0 F Pulse Rate Pulse Rate [ 73 63 79 Right Radial] Respiratory 19 20 17 Rate Blood Pressure Blood Pressure 104/72 117/76 120/64 [Right Arm] O2 Sat by Pulse 98 96 96 Oximetry (%) 02/13/19 02/13/19 04:12 04:36 Temperature Pulse Rate Pulse Rate [ 71 69 Right Radial] Respiratory 24 H 21 H Rate Blood Pressure Blood Pressure 112/70 126/81 [Right Arm] O2 Sat by Pulse 97 98 Oximetry (%) GENERAL: Awake, alert, and fully oriented, in no acute distress. EYES:PEERLA: EOMI; no scleral icterus NECK: no JVD; no lymphadenopathy LUNGS: CTA B/L; no rales, rhonchi or wheezing HEART: Regular rate and rhythm, normal S1 and S2 without murmur, rub or gallop. ABDOMEN: Soft, nontender, not distended, normoactive bowel sounds, no guarding, no rebound, no masses. No hepatomegaly or splenomegaly. MUSCULOSKELETAL: Normal range of motion at all joints. No bony deformities or tenderness. No CVA tenderness. 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 LOWER EXTREMITIES: warm; well-perfused no clubbing/cyanosis or edema ; LLE 4/5 strength sensation intact ; RLE 2/5 strength sensation partially intact NEUROLOGICAL: Cranial nerves II-XII intact. Normal speech. Normal gait. no facial assymmetry; no lid/lag sensation intact PSYCHIATRIC: Cooperative. Good eye contact. Appropriate mood and affect. SKIN: Warm, dry, normal turgor, no rashes or lesions noted, normal capillary refill. Laboratory Results - last 24 hr 02/13/19 02/13/19 02/13/19 00:00 00:00 00:02 WBC 8.9 RBC 5.17 Hgb 14.9 Hct 44.3 MCV 85.7 MCH 28.8 MCHC 33.7 RDW 12.6 Plt Count 292 D MPV 8.2 Absolute Neuts (auto) 3.6 Neutrophils % 41.0 L D Lymphocytes % 46.0 H D Monocytes % 9.7 Eosinophils % 2.6 D Basophils % 0.7 Nucleated RBC % 0 PT with INR INR PTT (Actin FS) Sodium 141 Potassium 3.8 Chloride 106 Carbon Dioxide 28 Anion Gap 7 L BUN 11.5 Creatinine 1.0 Est GFR (CKD-EPI)AfAm 112.51 Est GFR (CKD-EPI)NonAf 97.08 POC Glucometer Random Glucose 203 H Calcium 9.1 Total Bilirubin 0.4 AST 22 ALT 23 Alkaline Phosphatase 75 Creatine Kinase 143 Troponin I < 0.02 Total Protein 7.3 Albumin 3.9 Triglycerides 391 H Cholesterol 129 Total LDL Cholesterol 54 HDL Cholesterol 46 Urine Color Urine Appearance Urine pH Ur Specific Artemas Urine Protein Urine Glucose (UA) Urine Ketones Urine Blood Urine Nitrite Urine Bilirubin Urine Urobilinogen Ur Leukocyte Esterase Urine WBC (Auto) Urine RBC (Auto) Urine Casts (Auto) U Epithel Cells (Auto) Blood Type B POSITIVE Antibody Screen Negative 02/13/19 02/13/19 02/13/19 00:02 00:20 00:46 WBC RBC Hgb Hct MCV MCH MCHC RDW Plt Count MPV Absolute Neuts (auto) Neutrophils % Lymphocytes % Monocytes % Eosinophils % Basophils % Nucleated RBC % PT with INR 11.50 INR 0.97 PTT (Actin FS) 27.8 Sodium Potassium Chloride Carbon Dioxide Anion Gap BUN Creatinine Est GFR (CKD-EPI)AfAm Est GFR (CKD-EPI)NonAf POC Glucometer 197 Random Glucose Calcium Total Bilirubin AST ALT Alkaline Phosphatase Creatine Kinase Troponin I Total Protein Albumin Triglycerides Cholesterol Cancelled Total LDL Cholesterol HDL Cholesterol Urine Color Urine Appearance Urine pH Ur Specific Artemas Urine Protein Urine Glucose (UA) Urine Ketones Urine Blood Urine Nitrite Urine Bilirubin Urine Urobilinogen Ur Leukocyte Esterase Urine WBC (Auto) Urine RBC (Auto) Urine Casts (Auto) U Epithel Cells (Auto) Blood Type Antibody Screen 02/13/19 03:46 WBC RBC Hgb Hct MCV MCH MCHC RDW Plt Count MPV Absolute Neuts (auto) Neutrophils % Lymphocytes % Monocytes % Eosinophils % Basophils % Nucleated RBC % PT with INR INR PTT (Actin FS) Sodium Potassium Chloride Carbon Dioxide Anion Gap BUN Creatinine Est GFR (CKD-EPI)AfAm Est GFR (CKD-EPI)NonAf POC Glucometer Random Glucose Calcium Total Bilirubin AST ALT Alkaline Phosphatase Creatine Kinase Troponin I Total Protein Albumin Triglycerides Cholesterol Total LDL Cholesterol HDL Cholesterol Urine Color Yellow Urine Appearance Clear Urine pH 6.5 Ur Specific Artemas 1.070 H Urine Protein Negative Urine Glucose (UA) 100 Urine Ketones Negative Urine Blood Negative Urine Nitrite Negative Urine Bilirubin Negative Urine Urobilinogen 1.0 Ur Leukocyte Esterase Negative Urine WBC (Auto) 0.2 Urine RBC (Auto) 0.3 Urine Casts (Auto) 0.73 U Epithel Cells (Auto) 0.3 Blood Type Antibody Screen ASSESSMENT/PLAN: 33 y/o male with PMH of [place] (2017), CVA x2 (2018, 2019 with right sided residual deficits and aphasia) presents to the ED with complaints of chest pain and sudden onset left sided weakness- #New onset left sided weakness patient is s/p TPA head CT and CTA negative -Brain MRI/MRA w/o contrast ordered -neuro consulted -neuro and BP checks every 30 mns for 6 hours post TPA -maintain BP <180/105; -NPO -speech and swallow eval -SCDS and no blood draws for 1st 24 hours #HTN holding metoprolol 25BID for first 24 hours unless BP >180/105 #CAD holding ASA and lavix for 1st 24 hours #HLD cw lipitor 80 #DM holding home oral regimen ISS BGMS ACHS F/E/N ns @75 monitor electroltes NPO until speech and swallow dvt ppx: scds Family Medical History Family Hx Nuerologic Problems: Mother (stroke) Visit type - Emergency Visit Emergency Visit: Yes ED Registration Date: 02/13/19 Care time: The patient presented to the Emergency Department on the above date and was hospitalized for further evaluation of their emergent condition. - New Patient This patient is new to me today: Yes Date on this admission: 02/13/19 - Critical Care Critical Care patient: Yes Total Critical Care Time (in minutes): 35 Critical Care Statement: The care of this patient involved high complexity decision making to prevent further life threatening deterioration of the patient 's condition and/or to evaluate & treat vital organ system(s) failure or risk of failure. ATTENDING PHYSICIAN STATEMENT I saw and evaluated the patient. I reviewed the resident's note and discussed the case with the resident. I agree with the resident's findings and plan as documented. SUBJECTIVE: OBJECTIVE: ASSESSMENT AND PLAN:
[2019-02-13] MEDS: SODIUM CHLORIDE 1,000 ML IV SCH ×2 (05:57→20:00)
[2019-02-13] MEDS: INSULIN SLIDING SCALE (NOVOLOG) 1 VIAL SQ SCH ×4 (07:00→21:56)
--- NOTE | 2019-02-13 08:08 | PN ---
Physical Exam: SUBJECTIVE: Patient seen and examined. Has no complaints overnight and reports perceived improvement back to baseline of L sided weakness from last night. No complaints at this time. OBJECTIVE: Vital Signs Period Temp Pulse Resp BP Sys/Berumen Pulse Ox Last 24 Hr 98.0 F-98.4 F 63-99 17-24 104-144/61-89 96-99 GENERAL: The patient is awake, alert, and fully oriented, in no acute distress. HEAD: Normal with no signs of trauma. EYES: PERRL, extraocular movements intact, sclera anicteric, conjunctiva clear. No ptosis. ENT: Ears normal, nares patent, oropharynx clear without exudates, moist mucous membranes. NECK: Trachea midline, full range of motion, supple. LUNGS: Breath sounds equal, clear to auscultation bilaterally, no wheezes, no crackles, no accessory muscle use. HEART: Regular rate and rhythm, S1, S2 without murmur, rub or gallop. ABDOMEN: Soft, nontender, nondistended, normoactive bowel sounds, no guarding, no rebound, no hepatosplenomegaly, no masses. EXTREMITIES: 2+ pulses, warm, well-perfused, no edema. R sided weakness appreciated at patient's baseline NEUROLOGICAL: Cranial nerves II through XII grossly intact. Speech at baseline per patient, gait not observed. PSYCH: Normal mood, normal affect. SKIN: Warm, dry, normal turgor, no rashes or lesions noted Laboratory Results - last 24 hr 02/13/19 02/13/19 02/13/19 00:00 00:00 00:02 WBC 8.9 RBC 5.17 Hgb 14.9 Hct 44.3 MCV 85.7 MCH 28.8 MCHC 33.7 RDW 12.6 Plt Count 292 D MPV 8.2 Absolute Neuts (auto) 3.6 Neutrophils % 41.0 L D Lymphocytes % 46.0 H D Monocytes % 9.7 Eosinophils % 2.6 D Basophils % 0.7 Nucleated RBC % 0 PT with INR INR PTT (Actin FS) Sodium 141 Potassium 3.8 Chloride 106 Carbon Dioxide 28 Anion Gap 7 L BUN 11.5 Creatinine 1.0 Est GFR (CKD-EPI)AfAm 112.51 Est GFR (CKD-EPI)NonAf 97.08 POC Glucometer Random Glucose 203 H Calcium 9.1 Total Bilirubin 0.4 AST 22 ALT 23 Alkaline Phosphatase 75 Creatine Kinase 143 Troponin I < 0.02 Total Protein 7.3 Albumin 3.9 Triglycerides 391 H Cholesterol 129 Total LDL Cholesterol 54 HDL Cholesterol 46 Urine Color Urine Appearance Urine pH Ur Specific [place] Urine Protein Urine Glucose (UA) Urine Ketones Urine Blood Urine Nitrite Urine Bilirubin Urine Urobilinogen Ur Leukocyte Esterase Urine WBC (Auto) Urine RBC (Auto) Urine Casts (Auto) U Epithel Cells (Auto) Blood Type B POSITIVE Antibody Screen Negative 02/13/19 02/13/19 02/13/19 00:02 00:20 00:46 WBC RBC Hgb Hct MCV MCH MCHC RDW Plt Count MPV Absolute Neuts (auto) Neutrophils % Lymphocytes % Monocytes % Eosinophils % Basophils % Nucleated RBC % PT with INR 11.50 INR 0.97 PTT (Actin FS) 27.8 Sodium Potassium Chloride Carbon Dioxide Anion Gap BUN Creatinine Est GFR (CKD-EPI)AfAm Est GFR (CKD-EPI)NonAf POC Glucometer 197 Random Glucose Calcium Total Bilirubin AST ALT Alkaline Phosphatase Creatine Kinase Troponin I Total Protein Albumin Triglycerides Cholesterol Cancelled Total LDL Cholesterol HDL Cholesterol Urine Color Urine Appearance Urine pH Ur Specific [place] Urine Protein Urine Glucose (UA) Urine Ketones Urine Blood Urine Nitrite Urine Bilirubin Urine Urobilinogen Ur Leukocyte Esterase Urine WBC (Auto) Urine RBC (Auto) Urine Casts (Auto) U Epithel Cells (Auto) Blood Type Antibody Screen 02/13/19 03:46 WBC RBC Hgb Hct MCV MCH MCHC RDW Plt Count MPV Absolute Neuts (auto) Neutrophils % Lymphocytes % Monocytes % Eosinophils % Basophils % Nucleated RBC % PT with INR INR PTT (Actin FS) Sodium Potassium Chloride Carbon Dioxide Anion Gap BUN Creatinine Est GFR (CKD-EPI)AfAm Est GFR (CKD-EPI)NonAf POC Glucometer Random Glucose Calcium Total Bilirubin AST ALT Alkaline Phosphatase Creatine Kinase Troponin I Total Protein Albumin Triglycerides Cholesterol Total LDL Cholesterol HDL Cholesterol Urine Color Yellow Urine Appearance Clear Urine pH 6.5 Ur Specific [place] 1.070 H Urine Protein Negative Urine Glucose (UA) 100 Urine Ketones Negative Urine Blood Negative Urine Nitrite Negative Urine Bilirubin Negative Urine Urobilinogen 1.0 Ur Leukocyte Esterase Negative Urine WBC (Auto) 0.2 Urine RBC (Auto) 0.3 Urine Casts (Auto) 0.73 U Epithel Cells (Auto) 0.3 Blood Type Antibody Screen Active Medications Generic Name Dose Route Start Last Admin Trade Name Freq PRN Reason Stop Dose Admin Atorvastatin Calcium 80 mg 02/13/19 22:00 Lipitor - PO HS SARAH Sodium Chloride 1,000 mls @ 75 mls/hr 02/13/19 05:32 02/13/19 05:57 Normal Saline - IV 75 mls/hr ASDIR SARAH Administration Insulin Aspart 1 vial 02/13/19 07:00 Novolog Vial Sliding Scale - SQ ACHS SARAH Protocol ASSESSMENT/PLAN: Mr. 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 Patient given TPA in ER and reporting improvement of symptoms w/ improved exam. Patient pending brain MRI/MRA and observation #Stroke #HTN #HLD #IDDM -MRI/MRA -Neuro consult -Speech consult -insulin sliding scale -home atorvastatin -monitor vitals -maintain MAP above 65 -no blood draw 24hrs post tpa Visit type - Emergency Visit Emergency Visit: Yes ED Registration Date: 02/13/19 Care time: The patient presented to the Emergency Department on the above date and was hospitalized for further evaluation of their emergent condition. - New Patient This patient is new to me today: Yes Date on this admission: 02/13/19 - Critical Care Critical Care patient: Yes Total Critical Care Time (in minutes): 41 Critical Care Statement: The care of this patient involved high complexity decision making to prevent further life threatening deterioration of the patient 's condition and/or to evaluate & treat vital organ system(s) failure or risk of failure. ATTENDING PHYSICIAN STATEMENT I saw and evaluated the patient. I reviewed the resident's note and discussed the case with the resident. I agree with the resident's findings and plan as documented. SUBJECTIVE: OBJECTIVE: ASSESSMENT AND PLAN:
--- NOTE | 2019-02-13 09:51 | PN ---
Teaching Attending Note Name of Resident: Adalberto Shaver ATTENDING PHYSICIAN STATEMENT I saw and evaluated the patient. I reviewed the resident's note and discussed the case with the resident. I agree with the resident's findings and plan as documented. SUBJECTIVE: Pt seen and examined in the ICU. States left sided weakness has resolved, feels at baseline. No obvious bleeding. OBJECTIVE: Vital Signs Period Temp Pulse Resp BP Sys/Berumen Pulse Ox Last 24 Hr 98.0 F-98.4 F 62-99 17-24 104-144/61-91 96-99 Intake & Output 02/10/19 02/11/19 02/12/19 02/13/19 23:59 23:59 23:59 23:59 Intake Total 75 Output Total 0 Balance 75 Weight 85.457 kg Gen: NAD at rest Heart: RRR Lung: decreased breath sounds at the bases Abd: soft, nontender Ext: no edema CBC, BMP 02/13/19 00:00 02/13/19 00:02 Active Medications Atorvastatin Calcium (Lipitor -) 80 mg PO HS SARAH Sodium Chloride (Normal Saline -) 1,000 mls @ 75 mls/hr IV ASDIR SARAH Last Admin: 02/13/19 05:57 Dose: 75 mls/hr Insulin Aspart (Novolog Vial Sliding Scale -) 1 vial SQ ACHS SARAH; Protocol ASSESSMENT AND PLAN: Acute CVA s/p tPA CAD s/p NM h/o CVA x 2 HTN DM Hyperlipidemia - monitor for bleeding - neuro checks - ASA, plavix after tPA window - statin - echo, carotid dopplers - states he had a hypercoagulable work up in past - may need implantable loop recorder - continue ICU monitoring
--- NOTE | 2019-02-13 10:45 | CON.NEURO ---
Consult Consult Specialty:: NEUROLOGY-NICO JORGENSEN - History of Present Illness History of Present Illness: 33 yo M w/ PMH of [place] (2017), CVA (2018) s/p thrombectomy w/ residual aphasia/ Right sided weakness, DM, HLD, HTN presented to ED for left sided weakness x10 minutes prior to arrival. Partner at bedside reported pt stated he had chest pain, and at the same time developed acute left sided weakness. Partner reported that pt has full strength on the left despite having to go to PT for right sided weakness and no sensory symptoms.. He is able to answer yes and no questions 2/2 to aphasia. He reported the pain is constant, non-radiating, no alleviating or aggravating factors. He denied back pain, abdominal pain, shortness of breath, cough, fever. He admitted to slight lightheadedness/ generalized weakness. Last known normal 1220. -last night NIHSS-13, i was consulted and advised admin.of tPA which he received. He reports and his partner confirms his weaknes has improved since markedly, old deficits are rigght hemiparesis/hemisensory deficit, cent. facial/ aphasia. His cardiologists plan was to obtain GISELLE and fpc card.rhythm recording, his cerebral angiogram has been without abn. as has hypercoagulability w/u. - Alcohol/Substance Use Hx Alcohol Use: No - Smoking History Smoking history: Never smoked Have you smoked in the past 12 months: No Home Medications - Allergies Allergies/Adverse Reactions: Allergies Allergy/AdvReac Type Severity Reaction Status Date / Time dulaglutide [From [facility]] Allergy Verified 02/13/19 00:40 - Home Medications Home Medications: Ambulatory Orders Aspirin [Aspirin EC] 81 mg PO DAILY 09/26/18 Atorvastatin Ca [Lipitor] 80 mg PO HS 09/26/18 Clopidogrel Bisulfate [Plavix] 75 mg PO DAILY 09/26/18 Metoprolol Tartrate 25 mg PO BID 09/26/18 metFORMIN HCL [Metformin HCl ER] 1,500 mg PO DAILY 09/26/18 Insulin Glargine,Hum.rec.anlog [Basaglar Aguilarikpen U-100] 28 units PEN HS Physical Exam-Neuro Vital Signs: Vital Signs Temperature 98.4 F 02/13/19 05:24 Pulse Rate 62 02/13/19 08:00 Respiratory Rate 18 02/13/19 08:00 Blood Pressure 127/91 02/13/19 08:00 O2 Sat by Pulse Oximetry (%) 97 02/13/19 06:00 Labs: CBC, BMP 02/13/19 00:00 02/13/19 00:02 INR, PTT INR 0.97 (0.83-1.09) 02/13/19 00:20 - Neuro Exam Level Of Consciousness: Yes: Alert (aphasic ), Oriented to Person, Oriented to Place Eyes: Yes: PERRL Speech: Broca's Aphasia Mini Mental Exam: Fully attentive/intact comp Cranial Nerves II-XII Intact: No (old left.cent.facial) DTR's: 1+ Right Brachioradialis, 2+ Left Bicep, 2+ Left Tricep, 2+ Left Brachioradialis, 2+ Left Achilles, 2+ Right Achilles (right knee-3+, left 2=), 3 + Right Bicep, 3+ Right Tricep Babinski: Present Response to light touch: Abnormal (right face/arm/leg) Response to pain prick: Abnormal (right face/arm/leg) Motor Strength: 2/5: Right Leg, 3/5: Left Leg, Right Arm, 4/5: Left Arm Gait: Deferred Imaging - Results Cat Scan: Report Reviewed (left frontoparietal encephalomalacia.) Other: Pending (CTA report pending) Assessment/Plan Pt. with multiple past infarcts with residual right HP/HS deficit/aphasia, now with pure motor lef5t HP(NIHSS 13 last night)-gien tPA now improved NIHSS, as of this am6am reported verbally to me by HS at 6. He may have had a small vessel pure motor infarct or a med/large size right sided vessel occlusion. On exam he has improved left sided strength as documented above.I have reviewed past w/u/neurologic hzx. with his partner. Suggest: Start Aggrenox 1bid after MN tonight, GISELLE if possible on Friday, d/c ASA/Plavix. d/w ICU housestaff. Dr. Julien his neurologist to f/u on Friday. Thank you, appreciate ED/ICU staff assistance in managing this gent. Ray Smith MD
--- NOTE | 2019-02-13 16:50 | PN ---
Physical Exam: SUBJECTIVE: Patient seen and examined. He reports improvement in his symptoms. OBJECTIVE: Vital Signs Period Temp Pulse Resp BP Sys/Berumen Pulse Ox Last 24 Hr 98 F-98.4 F 60-99 16-24 104-144/61-91 96-99 GENERAL: The patient is awake, alert, and fully oriented, in no acute distress. LUNGS: Breath sounds equal, clear to auscultation bilaterally, no wheezes, no crackles, no accessory muscle use. HEART: Regular rate and rhythm, S1, S2 without murmur, rub or gallop. ABDOMEN: Obese, soft, nontender, nondistended, normoactive bowel sounds, no guarding, no rebound, no hepatosplenomegaly, no masses. EXTREMITIES: 2+ pulses, warm, well-perfused, no edema. NEUROLOGICAL: Expressive aphasia. Strength 3/5 in RUE/RLE, 4/5 LUE/LLE. Laboratory Results - last 24 hr 02/13/19 02/13/19 02/13/19 00:00 00:00 00:02 WBC 8.9 RBC 5.17 Hgb 14.9 Hct 44.3 MCV 85.7 MCH 28.8 MCHC 33.7 RDW 12.6 Plt Count 292 D MPV 8.2 Absolute Neuts (auto) 3.6 Neutrophils % 41.0 L D Lymphocytes % 46.0 H D Monocytes % 9.7 Eosinophils % 2.6 D Basophils % 0.7 Nucleated RBC % 0 PT with INR INR PTT (Actin FS) Sodium 141 Potassium 3.8 Chloride 106 Carbon Dioxide 28 Anion Gap 7 L BUN 11.5 Creatinine 1.0 Est GFR (CKD-EPI)AfAm 112.51 Est GFR (CKD-EPI)NonAf 97.08 POC Glucometer Random Glucose 203 H Calcium 9.1 Total Bilirubin 0.4 AST 22 ALT 23 Alkaline Phosphatase 75 Creatine Kinase 143 Troponin I < 0.02 Total Protein 7.3 Albumin 3.9 Triglycerides 391 H Cholesterol 129 Total LDL Cholesterol 54 HDL Cholesterol 46 Urine Color Urine Appearance Urine pH Ur Specific [place] Urine Protein Urine Glucose (UA) Urine Ketones Urine Blood Urine Nitrite Urine Bilirubin Urine Urobilinogen Ur Leukocyte Esterase Urine WBC (Auto) Urine RBC (Auto) Urine Casts (Auto) U Epithel Cells (Auto) Blood Type B POSITIVE Antibody Screen Negative 02/13/19 02/13/19 02/13/19 00:02 00:20 00:46 WBC RBC Hgb Hct MCV MCH MCHC RDW Plt Count MPV Absolute Neuts (auto) Neutrophils % Lymphocytes % Monocytes % Eosinophils % Basophils % Nucleated RBC % PT with INR 11.50 INR 0.97 PTT (Actin FS) 27.8 Sodium Potassium Chloride Carbon Dioxide Anion Gap BUN Creatinine Est GFR (CKD-EPI)AfAm Est GFR (CKD-EPI)NonAf POC Glucometer 197 Random Glucose Calcium Total Bilirubin AST ALT Alkaline Phosphatase Creatine Kinase Troponin I Total Protein Albumin Triglycerides Cholesterol Cancelled Total LDL Cholesterol HDL Cholesterol Urine Color Urine Appearance Urine pH Ur Specific [place] Urine Protein Urine Glucose (UA) Urine Ketones Urine Blood Urine Nitrite Urine Bilirubin Urine Urobilinogen Ur Leukocyte Esterase Urine WBC (Auto) Urine RBC (Auto) Urine Casts (Auto) U Epithel Cells (Auto) Blood Type Antibody Screen 02/13/19 02/13/19 03:46 11:13 WBC RBC Hgb Hct MCV MCH MCHC RDW Plt Count MPV Absolute Neuts (auto) Neutrophils % Lymphocytes % Monocytes % Eosinophils % Basophils % Nucleated RBC % PT with INR INR PTT (Actin FS) Sodium Potassium Chloride Carbon Dioxide Anion Gap BUN Creatinine Est GFR (CKD-EPI)AfAm Est GFR (CKD-EPI)NonAf POC Glucometer 169 Random Glucose Calcium Total Bilirubin AST ALT Alkaline Phosphatase Creatine Kinase Troponin I Total Protein Albumin Triglycerides Cholesterol Total LDL Cholesterol HDL Cholesterol Urine Color Yellow Urine Appearance Clear Urine pH 6.5 Ur Specific [place] 1.070 H Urine Protein Negative Urine Glucose (UA) 100 Urine Ketones Negative Urine Blood Negative Urine Nitrite Negative Urine Bilirubin Negative Urine Urobilinogen 1.0 Ur Leukocyte Esterase Negative Urine WBC (Auto) 0.2 Urine RBC (Auto) 0.3 Urine Casts (Auto) 0.73 U Epithel Cells (Auto) 0.3 Blood Type Antibody Screen Active Medications Generic Name Dose Route Start Last Admin Trade Name Freq PRN Reason Stop Dose Admin Atorvastatin Calcium 80 mg 02/13/19 22:00 Lipitor - PO HS SARAH Dipyridamole/Aspirin 1 combo 02/14/19 10:00 Aggrenox - PO BID SARAH Sodium Chloride 1,000 mls @ 75 mls/hr 02/13/19 05:32 02/13/19 05:57 Normal Saline - IV 75 mls/hr ASDIR SARAH Administration Insulin Aspart 1 vial 02/13/19 07:00 02/13/19 11:17 Novolog Vial Sliding Scale - SQ Not Given ACHS [facility] Protocol ASSESSMENT/PLAN: This is a 33 year old man with a history of CAD, NH, 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 1. Acute ischemic CVA with left sided weakness - s/p tPA - Symptoms resolved - Starting Aggrenox tonight - Continue Lipitor - Carotid dopplers negative - Brain MRI/MRA pending - Echo with bubble study 09/2018 showed no interatrial shunt - Cardiology consult for possible GISELLE 2. Right hemiparesis and expressive aphasia secondary to prior CVAs 3. CAD, history of NH - Was on aspirin, Plavix prior to admission - Aggrenox being started for CVA - Cardiology consult 4. HTN - Lopressor held 5. Hyperlipidemia - Continue Lipitor 6. Type 2 DM - Metformin, Basaglar held - Continue Novolog sliding scale 7. Obesity with BMI 31.4 Visit type - Emergency Visit Emergency Visit: Yes ED Registration Date: 02/13/19 Care time: The patient presented to the Emergency Department on the above date and was hospitalized for further evaluation of their emergent condition. - New Patient This patient is new to me today: Yes Date on this admission: 02/13/19 - Critical Care Critical Care patient: Yes Total Critical Care Time (in minutes): 45 Critical Care Statement: The care of this patient involved high complexity decision making to prevent further life threatening deterioration of the patient 's condition and/or to evaluate & treat vital organ system(s) failure or risk of failure. - Discharge Referral Referred to [facility] Med [facility].C.: No
--- NOTE | 2019-02-13 17:59 | EKG ---
Test Reason : Blood Pressure : / mmHG Vent. Rate : 091 BPM Atrial Rate : 091 BPM P-R Int : 140 ms QRS Dur : 076 ms QT Int : 348 ms P-R-T Axes : 061 048 040 degrees QTc Int : 428 ms POOR DATA QUALITY, INTERPRETATION MAY BE ADVERSELY AFFECTED NORMAL SINUS RHYTHM NONSPECIFIC ST AND T WAVE ABNORMALITY ABNORMAL ECG WHEN COMPARED WITH ECG OF 26-SEP-2018 21:40, NO SIGNIFICANT CHANGE WAS FOUND Confirmed by MD Angela, Omero ([id number]) on 02/13/2019 5:59:03 PM Referred By: Confirmed By:Omero Miller MD
[2019-02-13] MEDS ORDERED: ATORVASTATIN CA 80 MG TABLET (FP) PO SCH (22:00)
[2019-02-14] MEDS: SODIUM CHLORIDE 1,000 ML IV SCH (07:00)
[2019-02-14] MEDS: INSULIN SLIDING SCALE (NOVOLOG) 1 VIAL SQ SCH ×4 (07:40→22:21)
[2019-02-14] MEDS ORDERED: ASPIRIN/DIPYRIDAMOLE 25 MG/200 MG CAPSULE PO SCH (10:00)
--- NOTE | 2019-02-14 11:13 | PN ---
Teaching Attending Note Name of Resident: Cosmo Ledbetter ATTENDING PHYSICIAN STATEMENT I saw and evaluated the patient. I reviewed the resident's note and discussed the case with the resident. I agree with the resident's findings and plan as documented. SUBJECTIVE: Pt seen and examined in the ICU. Neuro exam remains back to baseline. MRI brain confirming right parietal infarct. Tolerating PO. OBJECTIVE: Vital Signs Period Temp Pulse Resp BP Sys/Berumen Pulse Ox Last 24 Hr 97.9 F-98.5 F 56-81 12-24 94-145/63-97 97-100 Intake & Output 02/11/19 02/12/19 02/13/19 02/14/19 23:59 23:59 23:59 23:59 Intake Total 450 675 Output Total 1400 700 Balance -950 -25 Weight 85.457 kg 82.508 kg Gen: NAD at rest Heart: RRR Lung: decreased breath sounds at the bases Abd: soft, nontender Ext: no edema CBC, BMP 02/13/19 00:00 02/13/19 00:02 Active Medications Atorvastatin Calcium (Lipitor -) 80 mg PO HS SARAH Last Admin: 02/13/19 21:55 Dose: 80 mg Dipyridamole/Aspirin (Aggrenox -) 1 combo PO BID SARAH Last Admin: 02/14/19 10:12 Dose: 1 combo Sodium Chloride (Normal Saline -) 1,000 mls @ 75 mls/hr IV ASDIR SARAH Last Admin: 02/14/19 07:00 Dose: Not Given Insulin Aspart (Novolog Vial Sliding Scale -) 1 vial SQ ACHS [facility]; Protocol Last Admin: 02/14/19 07:40 Dose: Not Given ASSESSMENT AND PLAN: Acute CVA s/p tPA CAD s/p [place] h/o CVA x 2 HTN DM Hyperlipidemia - neuro checks - Aggrenox - statin - states he had a hypercoagulable work up in past - may need implantable loop recorder - can monitor on stroke unit
--- NOTE | 2019-02-14 12:01 | PN ---
Physical Exam: SUBJECTIVE: Patient seen and examined on morning rounds. No focal complaints. Neuro symptoms on L side remain resolved. Continued baseline aphasia / R weakness. OBJECTIVE: Vital Signs Period Temp Pulse Resp BP Sys/Berumen Pulse Ox Last 24 Hr 97.9 F-98.5 F 56-81 12-24 94-145/63-97 97-100 GENERAL: The patient is awake, alert, and fully oriented, in no acute distress. HEAD: Normal with no signs of trauma. EYES: PERRL, extraocular movements intact, sclera anicteric, conjunctiva clear. No ptosis. ENT: Ears normal, nares patent, oropharynx clear without exudates, moist mucous membranes. NECK: Trachea midline, full range of motion, supple. LUNGS: Breath sounds equal, clear to auscultation bilaterally, no wheezes, no crackles, no accessory muscle use. HEART: Regular rate and rhythm, S1, S2 without murmur, rub or gallop. ABDOMEN: Soft, nontender, nondistended, normoactive bowel sounds, no guarding, no rebound, no hepatosplenomegaly, no masses. EXTREMITIES: 2+ pulses, warm, well-perfused, no edema. NEUROLOGICAL: Baseline aphasia, R sided weakness, L side full strength / sensation, gait not assessed. PSYCH: Normal mood, normal affect. SKIN: Warm, dry, normal turgor, no rashes or lesions noted Laboratory Results - last 24 hr 02/13/19 02/13/19 02/14/19 17:09 21:26 05:40 POC Glucometer 172 102 102 02/14/19 11:17 POC Glucometer 257 Active Medications Generic Name Dose Route Start Last Admin Trade Name Katie PRN Reason Stop Dose Admin Atorvastatin Calcium 80 mg 02/13/19 22:00 02/13/19 21:55 Lipitor - PO 80 mg HS SARAH Administration Dipyridamole/Aspirin 1 combo 02/14/19 10:00 02/14/19 10:12 Aggrenox - PO 1 combo BID SARAH Administration Sodium Chloride 1,000 mls @ 75 mls/hr 02/13/19 05:32 02/14/19 07:00 Normal Saline - IV Not Given ASDIR SARAH Insulin Aspart 1 vial 02/13/19 07:00 02/14/19 11:24 Novolog Vial Sliding Scale - SQ 6 units ACHS SARAH Administration Protocol ASSESSMENT/PLAN: Mr. 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 Patient given TPA in ER and reporting improvement of symptoms w/ improved exam. MRI confirming R parietal stroke, patient s/p TPA, L- sided deficits resolved, prior deficits on R / aphasia remain. Patient is stable for transfer to the floor. #CV: HTN, HLD -Continue home atorvastatin -Monitor vitals -Maintain MAP above 65 -Started on Aggrenox #Pulm: MICKY -Monitor vitals #Renal: MICKY -Monitor lytes, replace as indicated -No IVF given adequate PO intake #Endo: IDDM -Continue Insulin sliding scale #Neuro: Multiple strokes, now s/p TPA with resolution of new sx, prior deficits remain -MRI confirming R parietal stroke -Neuro consulted, appreciate recs -Speech consult #Heme/Onc: -No blood draw 24hrs post TPA #PPX: -OOB -D/C IVF, patient tolerating diet #Dispo: Transfer to stroke unit Visit type - Emergency Visit Emergency Visit: Yes ED Registration Date: 02/13/19 Care time: The patient presented to the Emergency Department on the above date and was hospitalized for further evaluation of their emergent condition. - New Patient This patient is new to me today: Yes Date on this admission: 02/14/19 - Critical Care Critical Care patient: Yes Total Critical Care Time (in minutes): 36 Critical Care Statement: The care of this patient involved high complexity decision making to prevent further life threatening deterioration of the patient 's condition and/or to evaluate & treat vital organ system(s) failure or risk of failure. ATTENDING PHYSICIAN STATEMENT I saw and evaluated the patient. I reviewed the resident's note and discussed the case with the resident. I agree with the resident's findings and plan as documented. SUBJECTIVE: OBJECTIVE: ASSESSMENT AND PLAN:
[2019-02-14 13:54] LABS: ALBUMIN 3.5 g/dl (3.4-5.0); BILIRUBIN,TOTAL 0.4 mg/dL (0.2-1); CALCIUM 8.3 mg/dL (8.5-10.1); CREATININE 0.8 mg/dL (0.55-1.3); TOT PROT 6.5 g/dl (6.4-8.2)
--- NOTE | 2019-02-14 15:32 | PN ---
Physical Exam: SUBJECTIVE: Patient seen and examined. He has no complaints. OBJECTIVE: Vital Signs Period Temp Pulse Resp BP Sys/Berumen Pulse Ox Last 24 Hr 97.8 F-98.5 F 56-94 12-24 94-136/63-97 97-100 GENERAL: The patient is awake, alert, and fully oriented, in no acute distress. LUNGS: Breath sounds equal, clear to auscultation bilaterally, no wheezes, no crackles, no accessory muscle use. HEART: Regular rate and rhythm, S1, S2 without murmur, rub or gallop. ABDOMEN: Obese, soft, nontender, nondistended, normoactive bowel sounds, no guarding, no rebound, no hepatosplenomegaly, no masses. EXTREMITIES: 2+ pulses, warm, well-perfused, no edema. NEUROLOGICAL: Expressive aphasia. Strength 3/5 in RUE/RLE, 4/5 LUE/LLE. Laboratory Results - last 24 hr 02/13/19 02/13/19 02/14/19 17:09 21:26 05:40 Sodium Potassium Chloride Carbon Dioxide Anion Gap BUN Creatinine Est GFR (CKD-EPI)AfAm Est GFR (CKD-EPI)NonAf POC Glucometer 172 102 102 Random Glucose Calcium Total Bilirubin AST ALT Alkaline Phosphatase Total Protein Albumin 02/14/19 02/14/19 11:17 12:15 Sodium 136 Potassium 4.0 Chloride 107 Carbon Dioxide 25 Anion Gap 3 L BUN 8.0 Creatinine 0.8 Est GFR (CKD-EPI)AfAm 134.14 Est GFR (CKD-EPI)NonAf 115.74 POC Glucometer 257 Random Glucose 248 H Calcium 8.3 L Total Bilirubin 0.4 AST 16 ALT 21 Alkaline Phosphatase 65 Total Protein 6.5 Albumin 3.5 Active Medications Generic Name Dose Route Start Last Admin Trade Name Freq PRN Reason Stop Dose Admin Atorvastatin Calcium 80 mg 02/14/19 22:00 Lipitor - PO HS SARAH Dipyridamole/Aspirin 1 combo 02/14/19 22:00 Aggrenox - PO BID SARAH Insulin Aspart 1 vial 02/14/19 16:30 Novolog Vial Sliding Scale - SQ ACHS SARAH Protocol ASSESSMENT/PLAN: This is a 33 year old man with a history of CAD, [place], 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 1. Acute ischemic CVA with left sided weakness - s/p tPA - Symptoms resolved - Started on Aggrenox in place of aspirin/Plavix - Continue Lipitor - Carotid dopplers negative - Brain MRI/MRA shows acute right parietal ischemic infarct, old left frontal and parietal infarct with encephalomalacia - Echo with bubble study 09/2018 showed no interatrial shunt - His outpatient instructional technology instructor, Dr. Demarcus Palacios, has recommended GISELLE and implantable loop recorder - Cardiology evaluation 2. Right hemiparesis and expressive aphasia secondary to prior CVAs 3. CAD, history of [place] - Was on aspirin, Plavix prior to admission - Aggrenox being started for CVA - Cardiology evaluation 4. HTN - Lopressor held 5. Hyperlipidemia - Continue Lipitor 6. Type 2 DM - Metformin, Basaglar held - Continue Novolog sliding scale 7. Obesity with BMI 30.3 Visit type - Emergency Visit Emergency Visit: Yes ED Registration Date: 02/13/19 Care time: The patient presented to the Emergency Department on the above date and was hospitalized for further evaluation of their emergent condition. - New Patient This patient is new to me today: No - Critical Care Critical Care patient: No - Discharge Referral Referred to [facility] No
[2019-02-14] MEDS: ATORVASTATIN CA 80 MG TABLET (FP) PO SCH (22:20)
[2019-02-14] MEDS: ASPIRIN/DIPYRIDAMOLE 25 MG/200 MG CAPSULE PO SCH (22:20)
[2019-02-15 07:32] LABS: HEMATOCRIT 41.9 % (35.4-49); HEMOGLOBIN 14.2 GM/dL (11.7-16.9); MCH 28.6 pg (25.7-33.7); MCHC 33.9 g/dl (32.0-35.9); MEAN CELL VOLUME 84.5 fl (80-96); MEAN PLT VOLUME 8.3 fl (7.5-11.1); PLATELET COUNT 259 K/MM3 (134-434); RBC 4.95 M/mm3 (4.00-5.60); RDW 12.6 % (11.9-15.9); WHITE BLOOD COUNT 9.4 K/mm3 (4.0-10.0)
[2019-02-15 07:55] LABS: BLOOD UREA NITROGEN 16.5 mg/dL (7-18); CALCIUM 9.2 mg/dL (8.5-10.1); CREATININE 0.8 mg/dL (0.55-1.3); POTASSIUM 4.3 mmol/L (3.5-5.1)
--- NOTE | 2019-02-15 08:52 | PN ---
Progress Note (short form) - Note Progress Note: Neurology - History of Present Illness History of Present Illness: Appreciate coverage by Dr. Smith 33 yo M w/ PMH of [place] (2017), CVA (2018) s/p thrombectomy w/ residual aphasia/ Right sided weakness, DM, HLD, HTN presented to ED for left sided weakness x10 minutes prior to arrival, on day of admission. Partner at bedside reported pt stated he had chest pain, and at the same time developed acute left sided weakness. Partner reported that pt has full strength on the left despite having to go to PT for right sided weakness and no sensory symptoms. He is able to answer yes and no questions 2/2 to aphasia. He reported the pain is constant, non-radiating, no alleviating or aggravating factors. He denied back pain, abdominal pain, shortness of breath, cough, fever. He admitted to slight lightheadedness/generalized weakness. Last known normal 1220. Night of admission , NIHSS-13, neurology consulted and advised admin.of tPA, patient received 9mg tpa over 1 min and 81mg over 1 hour. He reports and his partner confirms his weaknes has improved since markedly, old deficits are right hemiparesis/ hemisensory deficit, cent. facial/aphasia. His cardiologists plan was to obtain GISELLE and superintendent terminal card.rhythm recording, his cerebral angiogram has been without abn. as has hypercoagulability w/u. Carotid doppler completed, no evidence of hemodynamic stenosis. Head CT completed, evidence of acute intracranial hemmorrhage, mass lesions or infarction. Head CTA completed, results pending. Brain MRI/MRA completed, acute right parietal lobe nonhemorrhagic infarct, old large infarct with large areas of encephalomalacia; no evidence of basilar stenosis, occulusion, or dissection. Patient LDL level 54 and Triglyceride 391 level, Patient placed on statin- 80mg daily, Aggrenox 1bid, GISELLE possibly for Friday, ASA/Plavix. Reached out to Dr. Foley, cerebrovascular neurosurgery, regarding continuation of Aggrenox since this is a lesser antiplatelet regimen, however since patient had infarct on aspirin and Plavix may be of benefit to be on just aggrenox since he has not been on that medication. Will review case and decide on antiplatelet regiment. GISELLE may be of benefit as we have not had etiology to his recurrent strokes. Strength in the right upper extremity has significantly increased with the exception of sack filler which is slightly reduced at 4+/5. Active Medications Atorvastatin Calcium (Lipitor -) 80 mg PO HS SARAH Last Admin: 02/14/19 22:20 Dose: 80 mg Dipyridamole/Aspirin (Aggrenox -) 1 combo PO BID SARAH Last Admin: 02/14/19 22:20 Dose: 1 combo Insulin Aspart (Novolog Vial Sliding Scale -) 1 vial SQ ACHS [facility]; Protocol Last Admin: 02/14/19 22:21 Dose: 2 units Physical Exam-Neuro Vital Signs: Vital Signs Period Temp Pulse Resp BP Sys/Berumen Pulse Ox Last 24 Hr 97.8 F-98.4 F 66-98 17-25 106-127/71-85 100 Gen: Awake, alert, responds to questions appropriately Card: RRR, nml S1,S2 Resp: Normal symmetric effort, lungs clear to auscultation Abdomen: Soft, nontender, bowel sounds active Musculoskeletal: Adequate range of motion without significant deformity Level Of Consciousness: Yes: Alert (aphasic ), Oriented to Person, Oriented to Place Eyes: Yes: PERRL Speech: Broca's Aphasia Mini Mental Exam: Fully attentive/intact comp Cranial Nerves II-XII Intact: No (old left.cent.facial) DTR's: 1+ Right Brachioradialis, 2+ Left Bicep, 2+ Left Tricep, 2+ Left Brachioradialis, 2+ Left Achilles, 2+ Right Achilles (right knee-3+, left 2=), 3 + Right Bicep, 3+ Right Tricep Babinski: Present Response to light touch: Abnormal (right face/arm/leg) Response to pain prick: Abnormal (right face/arm/leg) Motor Strength: 2/5: Right Leg, 5/5: Left Leg, Right Arm, 4+/5: Left hand Gait: Deferred CBCD WBC 9.4 K/mm3 (4.0-10.0) 02/15/19 05:42 RBC 4.95 M/mm3 (4.00-5.60) 02/15/19 05:42 Hgb 14.2 GM/dL (11.7-16.9) 02/15/19 05:42 Hct 41.9 % (35.4-49) 02/15/19 05:42 MCV 84.5 fl (80-96) 02/15/19 05:42 MCHC 33.9 g/dl (32.0-35.9) 02/15/19 05:42 RDW 12.6 % (11.9-15.9) 02/15/19 05:42 Plt Count 259 K/MM3 (134-434) 02/15/19 05:42 MPV 8.3 fl (7.5-11.1) 02/15/19 05:42 CMP Sodium 140 mmol/L (136-145) 02/15/19 05:42 Potassium 4.3 mmol/L (3.5-5.1) 02/15/19 05:42 Chloride 110 mmol/L (98-107) H 02/15/19 05:42 Carbon Dioxide 24 mmol/L (21-32) 02/15/19 05:42 Anion Gap 6 MMOL/L (8-16) L 02/15/19 05:42 BUN 16.5 mg/dL (7-18) 02/15/19 05:42 Creatinine 0.8 mg/dL (0.55-1.3) 02/15/19 05:42 Random Glucose 144 mg/dL (74-106) H 02/15/19 05:42 Calcium 9.2 mg/dL (8.5-10.1) 02/15/19 05:42 Total Bilirubin 0.4 mg/dL (0.2-1) 02/14/19 12:15 AST 16 U/L (15-37) 02/14/19 12:15 ALT 21 U/L (13-61) 02/14/19 12:15 Alkaline Phosphatase 65 U/L (45-117) 02/14/19 12:15 Total Protein 6.5 g/dl (6.4-8.2) 02/14/19 12:15 Albumin 3.5 g/dl (3.4-5.0) 02/14/19 12:15 CARDIAC ENZYMES Creatine Kinase 143 U/L (26-308) 02/13/19 00:02 Troponin I < 0.02 ng/ml (0.00-0.05) 02/13/19 00:02 Assessment/Plan 33 yo M w/ PMH of [place] (2017), CVA (2018) s/p thrombectomy w/ residual aphasia/ Right sided weakness, DM, HLD, HTN presented to ED for left sided weakness x10 minutes prior to arrival, on day of admission. Partner at bedside reported pt stated he had chest pain, and at the same time developed acute left sided weakness. Partner reported that pt has full strength on the left despite having to go to PT for right sided weakness and no sensory symptoms. He is able to answer yes and no questions 2/2 to aphasia. He reported the pain is constant, non-radiating, no alleviating or aggravating factors. He denied back pain, abdominal pain, shortness of breath, cough, fever. He admitted to slight lightheadedness/generalized weakness. Last known normal 1220. Night of admission , NIHSS-13, neurology consulted and advised admin.of tPA, patient received 9mg tpa over 1 min and 81mg over 1 hour. He reports and his partner confirms his weaknes has improved since markedly, old deficits are right hemiparesis/ hemisensory deficit, cent. facial/aphasia. His cardiologists plan was to obtain GISELLE and correction card.rhythm recording, his cerebral angiogram has been without abn. as has hypercoagulability w/u. Carotid doppler completed, no evidence of hemodynamic stenosis. Head CT completed, evidence of acute intracranial hemmorrhage, mass lesions or infarction. Head CTA completed, results pending. Brain MRI/MRA completed, acute right parietal lobe nonhemorrhagic infarct, old large infarct with large areas of encephalomalacia; no evidence of basilar stenosis, occulusion, or dissection. Patient LDL level 54 and Triglyceride 391 level, Patient placed on statin- 80mg daily, Aggrenox 1bid, GISELLE possibly for Friday, ASA/Plavix. Reached out to Dr. Foley, cerebrovascular neurosurgery, regarding continuation of Aggrenox since this is a lesser antiplatelet regimen, however since patient had infarct on aspirin and Plavix may be of benefit to be on just aggrenox since he has not been on that medication. Will review case and decide on antiplatelet regiment. GISELLE may be of benefit as we have not had etiology to his recurrent strokes. Strength in the right upper extremity has significantly increased with the exception of sack filler which is slightly reduced at 4+/5. Will discuss further with . Monitor bp, maintain < 150/90, continue statin 80 for now, LDL within normal limits, physical therapy as tolerated. Telemetry monitoring, evaluation for atrial fibrillation or other arrhythmia, DVT ppx.
[2019-02-15] MEDS: ASPIRIN/DIPYRIDAMOLE 25 MG/200 MG CAPSULE PO SCH ×2 (09:15→21:30)
--- NOTE | 2019-02-15 10:19 | CONSULT ---
Admitting History and Physical - Primary Care Physician PCP: Jaleel Gomez - Admission History of Present Illness: Per EMR- 33 year old man with a history of CAD, [place], 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 Acute ischemic CVA with left sided weakness - s/p tPA - Symptoms resolved - Started on Aggrenox in place of aspirin/Plavix - Continue Lipitor - Carotid dopplers negative - Brain MRI/MRA shows acute right parietal ischemic infarct, old left frontal and parietal infarct with encephalomalacia - Echo with bubble study 09/2018 showed no interatrial shunt - His outpatient business programmer, Dr. Demarcus Palacios, has recommended GISELLE and implantable loop recorder - Cardiology evaluation Right hemiparesis and expressive aphasia secondary to prior CVAs History Source: Patient, Family Member Limitations to Obtaining History: Clinical Condition (Aphasia) - Smoking History Smoking history: Never smoked Have you smoked in the past 12 months: No - Alcohol/Substance Use Hx Alcohol Use: No - Social History Usual Living Arrangement: Yes: With Spouse History - Admission Reason For Visit: STROKE DUE TO EMBOLISM OF ANTERIOR CEREBRAL ARTERY - Diagnostics X-ray: Report Reviewed CT Scan: Report Reviewed MRI: Report Reviewed - General Mental Status: Alert and Oriented, Awake and Alert, Able to Follow Commands Attention: Intact Ability to Follow Directions: Good Head/Neck Control: WFL - Hearing Hearing: Normal Speech Evaluation - Communication Primary Language: FRISIAN Communication: Yes: Aphasia Oral Expression Ability: Yes: Moderate Impairment - Speech Production Able to Make Needs Known: Yes: Moderately Impaired Intelligibility: Yes: Mildly Impaired, Moderately Impaired - Speech Characteristics Voice Loudness: Moderately Soft/Quiet Voice Pitch: Yes: Normal Voice Phonatory-based Quality: Yes: Normal Speech Pattern: Impaired Speech Clarity: < 50% Nasal Resonance: Normal Articulation: Yes: Precise - Language/Auditory Comprehension Follows: Yes: 2 Stage Simple Commands Observation: Comprehends Conversational Speech: Yes - Language/Verbal Expression Functional Communication Status: Yes: Moderately Impaired Attention: Yes: Intact - Swallow Evaluation/Bedside Assessment Current Nutritional Intake: Regular, Thin Liquids Oral Secretions: Yes: WFL Dentition: Yes: Adequate Facial Symmetry at Rest: Symmetrical Facial Symmetry on Retraction: Symmetrical Facial Movement: Controlled Against Resistance Opening: Normal Against Resistance Closing: Normal Pucker Lips: Normal Smile: Normal Lingual Movement: Normal, Symmetric Lingual Speed of Movement: Normal Lingual Movement Strgth Against Opposition: Normal Lingual Movement Characteristics: Normal Velopharyngeal Movement: Normal Laryngeal Elevation: WFL Laryngeal Movement: Able to Palpate Rate of Intake: WFL Bolus Size: WFL Labial Seal: WFL Chewing: WFL Oral Prep Time: WFL A-P Transit: WFL Pocketing: None Timing of Swallow: WFL Coughing/Throat Clear: No Change in Voice: No Recommendations - Speech Evaluation, Impression/Plan Impression: Pt's symptom resolved back to baseline. Tolerating diet well. Cognitvely functional. Expressive Aphasia. h/o Speech tx briefly as out pt at [facility]. Pt can benefit from intensive Aphasia tx with excellent prognosis for improvement. Recommended Therapies: Language Recommended Frequency for Therapy: Three x Week - Dysphagia Impressions/Plan Swallowing Skills: WFL Dysphagia Impressions: No Impairment *Silent aspiration: cannot be R/O at bedside Recommendations: Other ([facility] out pt Speech/language tx individual and group. Information provided to pt) - Recommendations Diet Consistency: Regular Medication Administration: Whole with water Liquids: Thin Liquids
--- NOTE | 2019-02-15 10:37 | CON.CARD ---
Consult Consult Specialty:: Cardiology Referred by:: Hospitalist Reason for Consultation:: Cardiac evaluation - History of Present Illness Chief Complaint: Left side numbness History of Present Illness: Patient is a 33 year old male with underlying history of prior CVA with residual deficit on the right upper and lower extremities, HTN, hypercholesterolemia and T2DM who presented with sudden onset of left sided weakness and chest discomfort. He complained of LUE wealness and could not lift objects with left arm. He received TPA in the ER. He had suffered 2 prior CVAs resulting in right sided deficit and aphasia. He had seen Dr. Demarcus Palacios who had recommended GISELLE, but was not able to do it due to insurance reasons. Currently, he denies chest pain, SOB or palpitations. He denies paroxysmal nocturnal dyspnea or orthopnea. He denies fever or chills. He denies nausea, vomiting, diarrhea or abdominal pain. He denies headache or lightheadedness. 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] Allergy Verified 02/13/19 00:40 - Home Medications Home Medications: Ambulatory Orders Aspirin [Aspirin EC] 81 mg PO DAILY 09/26/18 Atorvastatin Ca [Lipitor] 80 mg PO HS 09/26/18 Clopidogrel Bisulfate [Plavix] 75 mg PO DAILY 09/26/18 Metoprolol Tartrate 25 mg PO BID 09/26/18 metFORMIN HCL [Metformin HCl ER] 1,500 mg PO DAILY 09/26/18 Insulin Glargine,Hum.rec.anlog [Wilfredo Andrea U-100] 28 units PEN HS Review of Systems - Review of Systems Constitutional: denies: Chills, Fever Cardiovascular: denies: Chest Pain, Palpitations, Shortness of Breath Respiratory: denies: Cough, Hemoptysis, Orthopnea, PND, SOB, SOB on Exertion, Wheezing Gastrointestinal: denies: Abdominal Pain, Constipation, Diarrhea, Melena, Nausea , Rectal Bleeding, Vomiting Genitourinary: denies: Dysuria, Hematuria Neurological: denies: Dizziness, Headache, Seizure, Syncope Vital Signs: Vital Signs Temperature 98.1 F 02/15/19 08:00 Pulse Rate 82 02/15/19 08:00 Respiratory Rate 18 02/15/19 08:00 Blood Pressure 117/83 02/15/19 08:00 O2 Sat by Pulse Oximetry (%) 100 02/14/19 22:00 Eyes: Yes: PERRL HENT: Yes: Atraumatic Neck: Yes: Supple Respiratory: Yes: CTA Bilaterally Gastrointestinal: Yes: Normal Bowel Sounds, Soft. No: Tenderness Cardiovascular: Yes: Regular Rate and Rhythm JVD: No PMI: Non-Displaced Heart Sounds: Yes: S1, S2 Edema: No - Other Data Labs, Other Data: CBC, BMP 02/15/19 05:42 02/15/19 05:42 INR, PTT INR 0.97 (0.83-1.09) 02/13/19 00:20 Laboratory Results - last 24 hr 02/14/19 02/15/19 02/15/19 21:47 05:32 05:42 WBC 9.4 RBC 4.95 Hgb 14.2 Hct 41.9 MCV 84.5 MCH 28.6 MCHC 33.9 RDW 12.6 Plt Count 259 MPV 8.3 Sodium Potassium Chloride Carbon Dioxide Anion Gap BUN Creatinine Est GFR (CKD-EPI)AfAm Est GFR (CKD-EPI)NonAf POC Glucometer 161 149 Random Glucose Calcium 02/15/19 02/15/19 05:42 12:08 WBC RBC Hgb Hct MCV MCH MCHC RDW Plt Count MPV Sodium 140 Potassium 4.3 Chloride 110 H Carbon Dioxide 24 Anion Gap 6 L BUN 16.5 Creatinine 0.8 Est GFR (CKD-EPI)AfAm 134.14 Est GFR (CKD-EPI)NonAf 115.74 POC Glucometer 235 Random Glucose 144 H Calcium 9.2 Normal sinus rhythm with nonspecific ST-T abnormalities Problem List - Problems (1) HTN (hypertension) Code(s): I10 - ESSENTIAL (PRIMARY) HYPERTENSION (2) Hypercholesterolemia Code(s): E78.00 - PURE HYPERCHOLESTEROLEMIA, UNSPECIFIED (3) T2DM (type 2 diabetes mellitus) Code(s): E11.9 - TYPE 2 DIABETES MELLITUS WITHOUT COMPLICATIONS (4) Left-sided weakness Code(s): R53.1 - WEAKNESS (5) Stroke Code(s): I63.9 - CEREBRAL INFARCTION, UNSPECIFIED Qualifiers: CVA mechanism: thrombosis Precerebral and cerebral artery: middle cerebral artery Laterality of affected vessel: left Qualified Code(s): I63.312 - Cerebral infarction due to thrombosis of left middle cerebral artery Assessment/Plan 1. CVA s/p TPA (prior CVA with residual right sided deficit and aphasia) 2. HTN 3. Hypercholesterolemia 4. T2DM PLAN: 1. GISELLE to rule out intracardiac shunt scheduled for tomorrow. NPO after [place] 2. Continue Aggrenox 3. Continue Lipitor 4. Neurology input noted Further plans are to follow Wallace Mcnamara MD
[2019-02-15] MEDS: INSULIN SLIDING SCALE (NOVOLOG) 1 VIAL SQ SCH ×4 (12:15→21:32)
[2019-02-15] MEDS ORDERED: ACETAMINOPHEN 325 MG TABLET (FP) PO PRN (12:31)
[2019-02-15 14:18] VITALS: BMI 31.8
--- NOTE | 2019-02-15 17:38 | PN ---
Physical Exam: SUBJECTIVE: Patient seen and examined. He has no complaints. OBJECTIVE: Vital Signs Period Temp Pulse Resp BP Sys/Berumen Pulse Ox Last 24 Hr 98 F-98.2 F 66-98 18-25 108-125/71-85 97-100 GENERAL: The patient is awake, alert, and fully oriented, in no acute distress. LUNGS: Breath sounds equal, clear to auscultation bilaterally, no wheezes, no crackles, no accessory muscle use. HEART: Regular rate and rhythm, S1, S2 without murmur, rub or gallop. ABDOMEN: Obese, soft, nontender, nondistended, normoactive bowel sounds, no guarding, no rebound, no hepatosplenomegaly, no masses. EXTREMITIES: 2+ pulses, warm, well-perfused, no edema. NEUROLOGICAL: Expressive aphasia. Strength 3/5 in RUE/RLE, 4/5 LUE/LLE. Laboratory Results - last 24 hr 02/14/19 02/15/19 02/15/19 21:47 05:32 05:42 WBC 9.4 RBC 4.95 Hgb 14.2 Hct 41.9 MCV 84.5 MCH 28.6 MCHC 33.9 RDW 12.6 Plt Count 259 MPV 8.3 Sodium Potassium Chloride Carbon Dioxide Anion Gap BUN Creatinine Est GFR (CKD-EPI)AfAm Est GFR (CKD-EPI)NonAf POC Glucometer 161 149 Random Glucose Calcium 02/15/19 02/15/19 02/15/19 05:42 12:08 16:58 WBC RBC Hgb Hct MCV MCH MCHC RDW Plt Count MPV Sodium 140 Potassium 4.3 Chloride 110 H Carbon Dioxide 24 Anion Gap 6 L BUN 16.5 Creatinine 0.8 Est GFR (CKD-EPI)AfAm 134.14 Est GFR (CKD-EPI)NonAf 115.74 POC Glucometer 235 102 Random Glucose 144 H Calcium 9.2 Active Medications Generic Name Dose Route Start Last Admin Trade Name Freq PRN Reason Stop Dose Admin Acetaminophen 650 mg 02/15/19 12:31 Tylenol - PO Q4H PRN HEADACHE Atorvastatin Calcium 80 mg 02/14/19 22:00 02/14/19 22:20 Lipitor - PO 80 mg HS SARAH Administration Dipyridamole/Aspirin 1 combo 02/14/19 22:00 02/15/19 09:15 Aggrenox - PO 1 combo BID SARAH Administration Insulin Aspart 1 vial 02/14/19 16:30 02/15/19 12:16 Novolog Vial Sliding Scale - SQ Not Given ACHS [facility] Protocol ASSESSMENT/PLAN: This is a 33 year old man with a history of CAD, [place], 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 1. Acute ischemic CVA with left sided weakness - s/p tPA - Symptoms resolved - Started on Aggrenox in place of aspirin/Plavix - Continue Lipitor - Carotid dopplers negative - Brain MRI/MRA shows acute right parietal ischemic infarct, old left frontal and parietal infarct with encephalomalacia - Echo with bubble study 09/2018 showed no interatrial shunt - His outpatient tombstone erector, Dr. Demarcus Palacios, has recommended GISELLE and implantable loop recorder - Cardiology input appreciated - plan for GISELLE tomorrow 2. Right hemiparesis and expressive aphasia secondary to prior CVAs 3. CAD, history of [place] - Was on aspirin, Plavix prior to admission, now on Aggrenox for CVA while on aspirin/Plavix 4. HTN - Lopressor held 5. Hyperlipidemia - Continue Lipitor 6. Type 2 DM - Metformin, Basaglar held - Continue Novolog sliding scale 7. Obesity with BMI 30.3 Visit type - Emergency Visit Emergency Visit: Yes ED Registration Date: 02/13/19 Care time: The patient presented to the Emergency Department on the above date and was hospitalized for further evaluation of their emergent condition. - New Patient This patient is new to me today: No - Critical Care Critical Care patient: No - Discharge Referral Referred to [facility] Med P.[facility] No
[2019-02-15] MEDS: ATORVASTATIN CA 80 MG TABLET (FP) PO SCH (21:30)
[2019-02-16] MEDS: INSULIN SLIDING SCALE (NOVOLOG) 1 VIAL SQ SCH ×2 (06:38→14:15)
--- NOTE | 2019-02-16 08:55 | PN ---
Progress Note (short form) - Note Progress Note: Neurology - History of Present Illness History of Present Illness: 33 yo M w/ PMH of [place] (2017), CVA (2018) s/p thrombectomy w/ residual aphasia/ Right sided weakness, DM, HLD, HTN presented to ED for left sided weakness x10 minutes prior to arrival, on day of admission. Partner at bedside reported pt stated he had chest pain, and at the same time developed acute left sided weakness. Partner reported that pt has full strength on the left despite having to go to PT for right sided weakness and no sensory symptoms. He is able to answer yes and no questions 2/2 to aphasia. He reported the pain is constant, non-radiating, no alleviating or aggravating factors. He denied back pain, abdominal pain, shortness of breath, cough, fever. He admitted to slight lightheadedness/generalized weakness. Last known normal 1220. Night of admission , NIHSS-13, neurology consulted and advised admin.of tPA, patient received 9mg tpa over 1 min and 81mg over 1 hour. He reports and his partner confirms his weaknes has improved since markedly, old deficits are right hemiparesis/ hemisensory deficit, cent. facial/aphasia. His cardiologists plan was to obtain GISELLE and assistant terminal manager card.rhythm recording, his cerebral angiogram has been without abn. as has hypercoagulability w/u. Carotid doppler completed, no evidence of hemodynamic stenosis. Head CT completed, evidence of acute intracranial hemmorrhage, mass lesions or infarction. Head CTA completed, results pending. Brain MRI/MRA completed, acute right parietal lobe nonhemorrhagic infarct, old large infarct with large areas of encephalomalacia; no evidence of basilar stenosis, occulusion, or dissection. Patient LDL level 54 and Triglyceride 391 level, Patient placed on statin- 80mg daily, Aggrenox 1bid. Reached out to Dr. Foley, cerebrovascular neurosurgery, regarding continuation of Aggrenox since this is a lesser antiplatelet regimen, however since patient had infarct on aspirin and Plavix, may be of benefit to be on Aggrenox instead since he has not been on that medication. GISELLE scheduled for today, reached out to cardiology to request it being done with bubble study. Strength in the left upper extremity has significantly increased with the exception of service correspondent which is slightly reduced at 5-/5. Spoke with , Yajaira, in extensive detail yesterday. Dr. Foley interested in hypercoag results, previously were reported to be normal by the though we did not actually receive the exact results, which were requested/ signed released. Do not want to repeat labs that have already been done unnecessarily. Active Medications Acetaminophen (Tylenol -) 650 mg PO Q4H PRN PRN Reason: HEADACHE Atorvastatin Calcium (Lipitor -) 80 mg PO HS SARAH Last Admin: 02/15/19 21:30 Dose: 80 mg Dipyridamole/Aspirin (Aggrenox -) 1 combo PO BID SARAH Last Admin: 02/15/19 21:30 Dose: 1 combo Insulin Aspart (Novolog Vial Sliding Scale -) 1 vial SQ ACHS SARAH; Protocol Last Admin: 02/16/19 06:38 Dose: Not Given Physical Exam-Neuro Vital Signs: Vital Signs Period Temp Pulse Resp BP Sys/Berumen Pulse Ox Last 24 Hr 97.9 F-98.0 F 66-92 17-18 100-144/68-85 97-97 Gen: Awake, alert, responds to questions appropriately Card: RRR, nml S1,S2 Resp: Normal symmetric effort, lungs clear to auscultation Abdomen: Soft, nontender, bowel sounds active Musculoskeletal: Adequate range of motion without significant deformity Level Of Consciousness: Yes: Alert (aphasic ), Oriented to Person, Oriented to Place Eyes: Yes: PERRL Speech: Broca's Aphasia Mini Mental Exam: Fully attentive/intact comp Cranial Nerves II-XII Intact: No (old left.cent.facial) DTR's: 1+ Right Brachioradialis, 2+ Left Bicep, 2+ Left Tricep, 2+ Left Brachioradialis, 2+ Left Achilles, 2+ Right Achilles (right knee-3+, left 2=), 3 + Right Bicep, 3+ Right Tricep Babinski: Present Response to light touch: Abnormal (right face/arm/leg) Response to pain prick: Abnormal (right face/arm/leg) Motor Strength: 2/5: Right Leg, 5/5: Left Leg, Right Arm, 4+/5: Left hand Gait: Deferred CBCD WBC 9.4 K/mm3 (4.0-10.0) 02/15/19 05:42 RBC 4.95 M/mm3 (4.00-5.60) 02/15/19 05:42 Hgb 14.2 GM/dL (11.7-16.9) 02/15/19 05:42 Hct 41.9 % (35.4-49) 02/15/19 05:42 MCV 84.5 fl (80-96) 02/15/19 05:42 MCHC 33.9 g/dl (32.0-35.9) 02/15/19 05:42 RDW 12.6 % (11.9-15.9) 02/15/19 05:42 Plt Count 259 K/MM3 (134-434) 02/15/19 05:42 MPV 8.3 fl (7.5-11.1) 02/15/19 05:42 CMP Sodium 140 mmol/L (136-145) 02/15/19 05:42 Potassium 4.3 mmol/L (3.5-5.1) 02/15/19 05:42 Chloride 110 mmol/L (98-107) H 02/15/19 05:42 Carbon Dioxide 24 mmol/L (21-32) 02/15/19 05:42 Anion Gap 6 MMOL/L (8-16) L 02/15/19 05:42 BUN 16.5 mg/dL (7-18) 02/15/19 05:42 Creatinine 0.8 mg/dL (0.55-1.3) 02/15/19 05:42 Random Glucose 144 mg/dL (74-106) H 02/15/19 05:42 Calcium 9.2 mg/dL (8.5-10.1) 02/15/19 05:42 Total Bilirubin 0.4 mg/dL (0.2-1) 02/14/19 12:15 AST 16 U/L (15-37) 02/14/19 12:15 ALT 21 U/L (13-61) 02/14/19 12:15 Alkaline Phosphatase 65 U/L (45-117) 02/14/19 12:15 Total Protein 6.5 g/dl (6.4-8.2) 02/14/19 12:15 Albumin 3.5 g/dl (3.4-5.0) 02/14/19 12:15 CARDIAC ENZYMES Creatine Kinase 143 U/L (26-308) 02/13/19 00:02 Troponin I < 0.02 ng/ml (0.00-0.05) 02/13/19 00:02 Assessment/Plan 33 yo M w/ PMH of [place] (2017), CVA (2018) s/p thrombectomy w/ residual aphasia/ Right sided weakness, DM, HLD, HTN presented to ED for left sided weakness x10 minutes prior to arrival, on day of admission. Partner at bedside reported pt stated he had chest pain, and at the same time developed acute left sided weakness. Partner reported that pt has full strength on the left despite having to go to PT for right sided weakness and no sensory symptoms. He is able to answer yes and no questions 2/2 to aphasia. He reported the pain is constant, non-radiating, no alleviating or aggravating factors. He denied back pain, abdominal pain, shortness of breath, cough, fever. He admitted to slight lightheadedness/generalized weakness. Last known normal 1220. Night of admission , NIHSS-13, neurology consulted and advised admin.of tPA, patient received 9mg tpa over 1 min and 81mg over 1 hour. He reports and his partner confirms his weaknes has improved since markedly, old deficits are right hemiparesis/ hemisensory deficit, cent. facial/aphasia. His cardiologists plan was to obtain GISELLE and assistant terminal manager card.rhythm recording, his cerebral angiogram has been without abn. as has hypercoagulability w/u. Carotid doppler completed, no evidence of hemodynamic stenosis. Head CT completed, evidence of acute intracranial hemmorrhage, mass lesions or infarction. Head CTA completed, results pending. Brain MRI/MRA completed, acute right parietal lobe nonhemorrhagic infarct, old large infarct with large areas of encephalomalacia; no evidence of basilar stenosis, occulusion, or dissection. Patient LDL level 54 and Triglyceride 391 level, Patient placed on statin- 80mg daily, Aggrenox 1bid, may be of benefit to be on Aggrenox instead since he has not been on that medication. GISELLE scheduled for today, reached out to cardiology to request it being done with bubble study. Strength in the left upper extremity has significantly increased with the exception of service correspondent which is slightly reduced at 5-/5. Spoke with , Yajaira, in extensive detail yesterday. Dr. Mocco interested in hypercoag results, previously were reported to be normal by the though we did not actually receive the exact results, which were requested/ signed released. Do not want to repeat labs that have already been done unnecessarily. Monitor bp, maintain < 150/90, continue statin 80 for now, LDL within normal limits, physical therapy as tolerated. Telemetry monitoring, evaluation for atrial fibrillation or other arrhythmia, DVT ppx.
[2019-02-16] MEDS ORDERED: ACETAMINOPHEN 1000 MG/100 ML VIAL (NON FORMULARY) IVPB ONE (09:23)
--- NOTE | 2019-02-16 09:23 | PN ---
Physical Exam: SUBJECTIVE: Patient seen and examined at the bedside. wants to go home after GISELLE. reports having a headache. OBJECTIVE: patient for a GISELLE today tylenol ivpb x 1 for headache add hmga1c to labs Patient is a 33 year old male with a past medical hx of [place] in 2017 (cath w/out stent), 2 prior CVA's w/ residual R sided weakness and aphasia, HTN, HLD, DM who presents for new onset R sided weakness. Patient given TPA in ER and reporting improvement of symptoms w/ improved exam. MRI confirming R parietal stroke, patient s/p TPA, left-sided deficits resolved, prior deficits on R / aphasia remain. Vital Signs Period Temp Pulse Resp BP Sys/Berumen Pulse Ox Last 24 Hr 97.9 F-98.0 F 66-92 17-18 100-144/68-85 97 GENERAL: The patient is awake, alert, and fully oriented, in no acute distress. HEAD: Normal with no signs of trauma. EYES: PERRL, extraocular movements intact, sclera anicteric, conjunctiva clear. No ptosis. ENT: Ears normal, nares patent, oropharynx clear without exudates, moist mucous membranes. NECK: Trachea midline, full range of motion, supple. LUNGS: Breath sounds equal, clear to auscultation bilaterally, no wheezes, no crackles, no accessory muscle use. HEART: Regular rate and rhythm,80s ABDOMEN: Soft, nontender, nondistended, normoactive bowel sounds, no guarding, no rebound, no hepatosplenomegaly, no masses. EXTREMITIES: 2+ pulses, warm, well-perfused, no edema. NEUROLOGICAL: expressive aphasia. strength 3/5 in right arm/leg. 4/5 of left arm and left leg PSYCH: Normal mood, normal affect. SKIN: Warm, dry, normal turgor, no rashes or lesions noted Laboratory Results - last 24 hr 02/15/19 02/15/19 02/15/19 12:08 16:58 21:29 POC Glucometer 235 102 119 02/16/19 05:52 POC Glucometer 118 Active Medications Generic Name Dose Route Start Last Admin Trade Name Freq PRN Reason Stop Dose Admin Acetaminophen 650 mg 02/15/19 12:31 Tylenol - PO Q4H PRN HEADACHE Acetaminophen 1,000 mg 02/16/19 09:23 Ofirmev Injection - IVPB 02/16/19 09:24 ONCE ONE Atorvastatin Calcium 80 mg 02/14/19 22:00 02/15/19 21:30 Lipitor - PO 80 mg HS SARAH Administration Dipyridamole/Aspirin 1 combo 02/14/19 22:00 02/15/19 21:30 Aggrenox - PO 1 combo BID SARAH Administration Insulin Aspart 1 vial 02/14/19 16:30 02/16/19 06:38 Novolog Vial Sliding Scale - SQ Not Given ACHS SARAH Protocol ASSESSMENT/PLAN:
[2019-02-16] MEDS: ASPIRIN/DIPYRIDAMOLE 25 MG/200 MG CAPSULE PO SCH (09:44)
[2019-02-16 10:08] LABS: BASO % 0.3 % (0-2.0); HEMATOCRIT 46.7 % (35.4-49); HEMOGLOBIN 15.4 GM/dL (11.7-16.9); LYMPH % 21.3 % (8-40); MCH 28.3 pg (25.7-33.7); MEAN CELL VOLUME 85.6 fl (80-96); MONO % 6.6 % (3.8-10.2); NEUT % 70.8 % (42.8-82.8); PLATELET COUNT 299 K/MM3 (134-434); RBC 5.45 M/mm3 (4.00-5.60); RDW 12.9 % (11.9-15.9)
--- NOTE | 2019-02-16 10:16 | PN ---
Progress Note, Physician Chief Complaint: Not in distress History of Present Illness: Patient was seen and examined. Awake and alert. Chart was reviewed Denies chest pain, SOB or palpitations - Current Medication List Current Medications: Active Medications Acetaminophen (Tylenol -) 650 mg PO Q4H PRN PRN Reason: HEADACHE Atorvastatin Calcium (Lipitor -) 80 mg PO HS [facility] Last Admin: 02/15/19 21:30 Dose: 80 mg Dipyridamole/Aspirin (Aggrenox -) 1 combo PO BID [facility] Last Admin: 02/16/19 09:44 Dose: 1 combo Insulin Aspart (Novolog Vial Sliding Scale -) 1 vial SQ ACHS [facility]; Protocol Last Admin: 02/16/19 06:38 Dose: Not Given - Objective Vital Signs: Vital Signs Temperature 98.0 F 02/16/19 06:26 Pulse Rate 66 02/16/19 06:26 Respiratory Rate 17 02/16/19 06:26 Blood Pressure 105/68 02/16/19 06:26 O2 Sat by Pulse Oximetry (%) 97 02/15/19 21:00 Eyes: Yes: PERRL HENT: Yes: Atraumatic Neck: Yes: Supple Cardiovascular: Yes: Regular Rate and Rhythm, S1, S2 Respiratory: Yes: CTA Bilaterally Gastrointestinal: Yes: Normal Bowel Sounds, Soft. No: Tenderness Edema: No Additional Findings/Remarks: - Review of Systems Constitutional: denies: Chills, Fever Cardiovascular: denies: Chest Pain, Palpitations, Shortness of Breath Respiratory: denies: Cough, Hemoptysis, Orthopnea, PND, SOB, SOB on Exertion, Wheezing Gastrointestinal: denies: Abdominal Pain, Constipation, Diarrhea, Melena, Nausea , Rectal Bleeding, Vomiting Genitourinary: denies: Dysuria, Hematuria Neurological: denies: Dizziness, Headache, Seizure, Syncope Labs: Problem List - Problems (1) HTN (hypertension) Code(s): I10 - ESSENTIAL (PRIMARY) HYPERTENSION (2) Hypercholesterolemia Code(s): E78.00 - PURE HYPERCHOLESTEROLEMIA, UNSPECIFIED (3) T2DM (type 2 diabetes mellitus) Code(s): E11.9 - TYPE 2 DIABETES MELLITUS WITHOUT COMPLICATIONS (4) Left-sided weakness Code(s): R53.1 - WEAKNESS (5) Stroke Code(s): I63.9 - CEREBRAL INFARCTION, UNSPECIFIED Qualifiers: CVA mechanism: thrombosis Precerebral and cerebral artery: middle cerebral artery Laterality of affected vessel: left Qualified Code(s): I63.312 - Cerebral infarction due to thrombosis of left middle cerebral artery Assessment/Plan 1. CVA s/p TPA (prior CVA with residual right sided deficit and aphasia) 2. HTN 3. Hypercholesterolemia 4. T2DM PLAN: 1. GISELLE to rule out intracardiac shunt today 2. Continue Aggrenox 3. Continue Lipitor 4. Monitor neuro status Further plans are to follow Wallace Mcnamara MD
[2019-02-16 10:34] LABS: ALBUMIN 4.3 g/dl (3.4-5.0); BILIRUBIN,TOTAL 0.6 mg/dL (0.2-1); BLOOD UREA NITROGEN 13.4 mg/dL (7-18); CALCIUM 9.9 mg/dL (8.5-10.1); MAGNESIUM 2.2 mg/dL (1.8-2.4); POTASSIUM 4.7 mmol/L (3.5-5.1); TOT PROT 8.1 g/dl (6.4-8.2)
[2019-02-16] MEDS ORDERED: LIDOCAINE VISCOUS 2% ORAL/TOP 20 ML UNIT-DOSE CUP ONE (10:43)
[2019-02-16] MEDS ORDERED: LIDOCAINE VISCOUS 2% ORAL/TOP 20 ML UNIT-DOSE CUP MM ONE (10:49)
--- NOTE | 2019-02-16 11:32 | ECHO ---
Name: TERRI, GAYLA Exam:Transesophageal Echocardiogram Study Date: 02/16/2019 10:42 AM Age: 33 yrs Procedure: A 2D transesophageal echocardiogram with Doppler and color flow Doppler was performed. Informed conse nt for Transesophageal Echocardiogram, and use of a contrast agent as needed, was obtained prior to the proc edure. The patient was brought to the endoscopy suite in a fasting state. An intravenous line was placed. A topical anesthetic agent was used for oropharangeal anesthesia. A bite block was inserted. IV concious sedati on was administered using propafol. A multifrequency, multiplane transesopheageal echocardiographic endoscop e was inserted and manipulated in the standard fashion to achieve multiplane views. The usual views were ob tained; basal, mid-esophageal, transgastric and aortic views. The patient's vital signs, including blood pres sure, heart rate, pulse oximetry and cardiac rhythm were monitored throughout the procedure and remained st able. The patient tolerated the procedure well without evidence of orophangeal or esophageal trauma. Contrast i njection with agitated saline was performed. There were no complications. The patient was in normal sinus rhyt hm during the exam. Left Ventricle The left ventricular size, thickness and function are normal. Left ventricular systolic function is n ormal. The left ventricular ejection fraction is normal. No regional wall motion abnormalities noted. There is no thrombus. Atria The left atrial size is normal. No thrombus is detected in the left atrial appendage. No left atrial mass or thrombus visualized. The interatrial septum is intact with no evidence for an atrial septal defect. I njection of contrast documented no interatrial shunt. Mitral Valve The mitral valve is grossly normal. There is mild mitral regurgitation. Tricuspid Valve The tricuspid valve is not well visualized, but is grossly normal. No tricuspid regurgitation. Aortic Valve The aortic valve is normal in structure and function. No aortic regurgitation is present. Pulmonic Valve The pulmonic valve is not well visualized. Mild pulmonic valvular regurgitation. Great Vessels No evidence of atherosclerotic plaque in thoracic aorta or aortic arch. Pericardium/Pluera There is no pericardial effusion. Interpretation Summary The left ventricular size, thickness and function are normal Left ventricular systolic function is normal. No regional wall motion abnormalities noted. The left atrial size is normal. No thrombus is detected in the left atrial appendage. No left atrial mass or thrombus visualized. The interatrial septum is intact with no evidence for an atrial septal defect. Injection of contrast documented no interatrial shunt. There is mild mitral regurgitation. Mild pulmonic valvular regurgitation. No evidence of atherosclerotic plaque in thoracic aorta or aortic arch There is no pericardial effusion. Wallace Mcnamara MD 02/16/2019 11:31 AM
[2019-02-16 15:29] VITALS: BP 103/66; PULSE 71; TEMP 98.4
--- NOTE | 2019-02-16 15:58 | DS ---
Physical Exam: SUBJECTIVE: Patient seen and examined OBJECTIVE: Vital Signs Period Temp Pulse Resp BP Sys/Berumen Pulse Ox Last 24 Hr 97.5 F-98.4 F 66-94 17-20 97-144/60-85 97-100 PHYSICAL EXAM GENERAL: The patient is awake, alert, and fully oriented, in no acute distress. HEAD: Normal with no signs of trauma. EYES: PERRL, extraocular movements intact, sclera anicteric, conjunctiva clear. ENT: Ears normal, nares patent, oropharynx clear without exudates, moist mucous membranes. NECK: Trachea midline, full range of motion, supple. LUNGS: Breath sounds equal, clear to auscultation bilaterally, no wheezes, no crackles, no accessory muscle use. HEART: Regular rate and rhythm, S1, S2 without murmur, rub or gallop. ABDOMEN: Soft, nontender, nondistended, normoactive bowel sounds, no guarding, no rebound, no hepatosplenomegaly, no masses. EXTREMITIES: 2+ pulses, warm, well-perfused, no edema. NEUROLOGICAL: Cranial nerves II through XII grossly intact. Normal speech, gait not observed. PSYCH: Normal mood, normal affect. SKIN: Warm, dry, normal turgor, no rashes or lesions noted. LABS Laboratory Results - last 24 hr 02/15/19 02/15/19 02/16/19 16:58 21:29 05:52 WBC RBC Hgb Hct MCV MCH MCHC RDW Plt Count MPV Absolute Neuts (auto) Neutrophils % Lymphocytes % Monocytes % Eosinophils % Basophils % Nucleated RBC % Sodium Potassium Chloride Carbon Dioxide Anion Gap BUN Creatinine Est GFR (CKD-EPI)AfAm Est GFR (CKD-EPI)NonAf POC Glucometer 102 119 118 Random Glucose Hemoglobin A1c % Calcium Magnesium Total Bilirubin AST ALT Alkaline Phosphatase Total Protein Albumin 02/16/19 02/16/19 02/16/19 09:30 09:44 09:44 WBC 9.0 RBC 5.45 Hgb 15.4 Hct 46.7 MCV 85.6 MCH 28.3 MCHC 33.0 RDW 12.9 Plt Count 299 MPV 8.0 Absolute Neuts (auto) 6.4 Neutrophils % 70.8 D Lymphocytes % 21.3 D Monocytes % 6.6 Eosinophils % 1.0 Basophils % 0.3 Nucleated RBC % 0 Sodium 139 Potassium 4.7 Chloride 108 H Carbon Dioxide 27 Anion Gap 4 L BUN 13.4 Creatinine 1.0 Est GFR (CKD-EPI)AfAm 112.51 Est GFR (CKD-EPI)NonAf 97.08 POC Glucometer Random Glucose 133 H Hemoglobin A1c % 7.0 H Calcium 9.9 Magnesium 2.2 Total Bilirubin 0.6 AST 19 ALT 24 Alkaline Phosphatase 80 Total Protein 8.1 Albumin 4.3 02/16/19 12:32 WBC RBC Hgb Hct MCV MCH MCHC RDW Plt Count MPV Absolute Neuts (auto) Neutrophils % Lymphocytes % Monocytes % Eosinophils % Basophils % Nucleated RBC % Sodium Potassium Chloride Carbon Dioxide Anion Gap BUN Creatinine Est GFR (CKD-EPI)AfAm Est GFR (CKD-EPI)NonAf POC Glucometer 117 Random Glucose Hemoglobin A1c % Calcium Magnesium Total Bilirubin AST ALT Alkaline Phosphatase Total Protein Albumin HOSPITAL COURSE: Date of Admission:02/13/19 Date of Discharge: 02/16/19 Discharge Summary Problems reviewed: Yes Reason For Visit: 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 We have adjusted your home medications as indicated in your discharge instructions. CHANGES ON YOUR MEDICATIONS Started on Aggrenox in place of aspirin/Plavix - DO NOT take aspirin or plavix Continue Lipitor 80mg daily Follow ups: Please follow up with Dr. Palacios Please follow up with neurologist you see as an outpatient or Dr. Julien ( NEUROLOGIST) who saw you during your hospital stay. Thank you. Referrals: Ahsan Braxton MD [Primary Care Provider] - Wallace Mcnamara MD [Staff Physician] - Diego Julien MD [Staff Physician] - 1 Week Disposition: HOME - Home Medications Comprehensive Discharge Medication List: Ambulatory Orders Atorvastatin Ca [Lipitor] 80 mg PO HS 09/26/18 Metoprolol Tartrate 25 mg PO BID 09/26/18 metFORMIN HCL [Metformin HCl ER] 1,500 mg PO DAILY 09/26/18 Insulin Glargine,Hum.rec.anlog [Basaglar Kwikpen U-100] 28 units PEN HS Aspirin/Dipyridamole [Aggrenox -] 1 combo PO BID #180 capsule 02/16/19 - Discharge Referral Referred to [facility] No
== END 2019-02-16 17:00 | disposition home or self-care (01) | DRG 45 ==
LOC: JER 00:27 → JERBED 03:50 → JICU 05:18 → J2W 02-14 14:55
PROVIDERS: ADMIT Internal Medicine; ATTEND Nurse Practitioner Family
PROC: 3E03317 Introduction of Other Thrombolytic into Peripheral Vein, Percutaneous Approach (ICD-10-PCS; principal; 2019-02-13)
PROC: B246ZZ4 Ultrasonography of Right and Left Heart, Transesophageal (ICD-10-PCS; 2019-02-16)
DX: I63.9 Cerebral infarction, unspecified (principal); I69.351 Hemiplegia and hemiparesis following cerebral infarction affecting right dominant side; G93.89 Other specified disorders of brain; I69.320 Aphasia following cerebral infarction; E11.9 Type 2 diabetes mellitus without complications; I25.2 Old myocardial infarction; I10 Essential (primary) hypertension; E78.5 Hyperlipidemia, unspecified; E66.9 Obesity, unspecified; Z68.31 Body mass index [BMI] 31.0-31.9, adult; I25.10 Atherosclerotic heart disease of native coronary artery without angina pectoris
CPT/HCPCS: 36415; 70450-TC; 70496-TC; 70544-TC; 70551-TC; 71045-TC-FY; 71275-TC; 74177-TC; 80048; 80053; 80061; 81003; 82550; 82962; 83036; 83721; 83735; 84484; 85025; 85027; 85610; 85730; 86850; 86900; 86901; 93005; 93010; 93312; 93325; 93880-TC; 97116-GP; 97163-GP; 99285-25; J0131; J2997; J7030

== ENCOUNTER 2023-06-22 14:44 | Observation (INO) | payer MEDICARE, OTHER ==
[2023-06-22 14:58] VITALS: RESP 18; BMI 29.2
[2023-06-22] MEDS ORDERED: METOCLOPRAMIDE HCL INJECTION 10 MG/2 ML VIAL ONE (15:52)
[2023-06-22] MEDS ORDERED: ACETAMINOPHEN INJECTION 100 ML IVPB ONE (15:53)
[2023-06-22] MEDS: SODIUM CHLORIDE 0.9% 500 ML INFUS.BAG IV ONE (16:18)
[2023-06-22] MEDS: ACETAMINOPHEN 1000 MG/100 ML BAG IVPB ONE (16:18)
[2023-06-22] MEDS: METOCLOPRAMIDE HCL INJECTION 10 MG/2 ML VIAL IVPUSH ONE (16:19)
[2023-06-22 16:29] LABS: BASO % 0.3 % (0-2.0); HEMATOCRIT 46.3 % (35.4-49); HEMOGLOBIN 15.4 GM/dL (11.7-16.9); LYMPH % 29.2 % (8-40); MCH 28.5 pg (25.7-33.7); MCHC 33.2 g/dl (32.0-35.9); MEAN CELL VOLUME 85.8 fl (80-96); MEAN PLT VOLUME 8.3 fl (7.5-11.1); MONO % 8.7 % (3.8-10.2); NEUT % 60.8 % (42.8-82.8); PLATELET COUNT 310 10^3/uL (134-434); RBC 5.39 M/mm3 (4.00-5.60); WHITE BLOOD COUNT 7.6 K/mm3 (4.0-10.0)
[2023-06-22 16:51] LABS: CHLORIDE 109 mmol/L (98-107); SODIUM 139 mmol/L (136-145)
[2023-06-22 16:52] LABS: CALCIUM 9.1 mg/dL (8.5-10.1)
[2023-06-22 16:53] LABS: ALBUMIN 3.9 g/dl (3.4-5.0); BLOOD UREA NITROGEN 9.6 mg/dL (7-18); CO2 24 mmol/L (21-32); GLUCOSE,RANDOM 96 mg/dL (74-106)
[2023-06-22 16:56] LABS: CREATININE 0.9 mg/dL (0.55-1.3); SGOT/AST 70 U/L (15-37); SGPT/ALT 37 U/L (13-61)
[2023-06-22 16:58] LABS: BILIRUBIN,TOTAL 0.5 mg/dL (0.2-1); TOT PROT 8.1 g/dl (6.4-8.2)
[2023-06-22 16:59] LABS: ALK PHOS 75 U/L (45-117)
[2023-06-22 17:03] LABS: ANION GAP 6 mmol/L (4-13); POTASSIUM 6.6 mmol/L (3.5-5.1)
[2023-06-22] MEDS ORDERED: KETOROLAC TROMETHAMINE 15 MG/ML VIAL ONE (17:16)
[2023-06-22] MEDS: KETOROLAC TROMETHAMINE 15 MG/ML VIAL IVPUSH ONE (17:31)
[2023-06-22] MEDS ORDERED: ACETAMINOPHEN 500 MG TABLET (FP) PO PRN (18:12)
[2023-06-22 20:33] LABS: POTASSIUM 4.2 mmol/L (3.5-5.1)
[2023-06-22 20:34] LABS: CALCIUM 8.4 mg/dL (8.5-10.1)
[2023-06-22 20:35] LABS: BLOOD UREA NITROGEN 8.9 mg/dL (7-18)
[2023-06-22 20:38] LABS: CREATININE 0.8 mg/dL (0.55-1.3)
[2023-06-22] MEDS ORDERED: HEPARIN NA (PORCINE) 5,000 UNITS/ML 1ML VIAL ONE (22:52)
[2023-06-22] MEDS ORDERED: ATORVASTATIN CA 80 MG TABLET (FP) ONE (22:52)
[2023-06-22] MEDS ORDERED: METOPROLOL TARTRATE 25 MG TABLET (FP) ONE (22:52)
[2023-06-22] MEDS: HEPARIN NA (PORCINE) 5,000 UNITS/ML 1ML VIAL SQ SCH (23:08)
[2023-06-22] MEDS: INSULIN (LEVEMIR) 100 UNITS/ML UNITS SQ SCH (23:08)
[2023-06-22] MEDS: METOPROLOL TARTRATE 25 MG TABLET (FP) PO SCH (23:08)
[2023-06-22] MEDS: ATORVASTATIN CA 80 MG TABLET (FP) PO SCH (23:08)
[2023-06-23] MEDS: INSULIN ASPART SLIDING SCALE (NOVOLOG) 1 VIAL SQ SCH (07:50)
[2023-06-23 07:56] LABS: BASO % 0.5 % (0-2.0); EOS % 2.7 % (0-4.5); HEMATOCRIT 44.3 % (35.4-49); LYMPH % 36.7 % (8-40); MCHC 33.8 g/dl (32.0-35.9); MEAN CELL VOLUME 85.6 fl (80-96); MEAN PLT VOLUME 7.6 fl (7.5-11.1); NEUT % 51.1 % (42.8-82.8); PLATELET COUNT 266 10^3/uL (134-434); RBC 5.17 M/mm3 (4.00-5.60); RDW 13.4 % (11.9-15.9); WHITE BLOOD COUNT 6.8 K/mm3 (4.0-10.0)
[2023-06-23 08:28] LABS: CALCIUM 9.1 mg/dL (8.5-10.1)
[2023-06-23 08:29] LABS: BLOOD UREA NITROGEN 8.8 mg/dL (7-18)
[2023-06-23 08:33] LABS: CREATININE 0.7 mg/dL (0.55-1.3)
[2023-06-23] MEDS: EMPAGLIFLOZIN (JARDIANCE) 25 MG TABLET PO SCH (10:02)
[2023-06-23] MEDS ORDERED: METOPROLOL TARTRATE 25 MG TABLET (FP) ONE (11:15)
[2023-06-23] MEDS ORDERED: CLOPIDOGREL BISULFATE 75 MG TABLET (FP) ONE (11:15)
[2023-06-23] MEDS ORDERED: HEPARIN NA (PORCINE) 5,000 UNITS/ML 1ML VIAL ONE (11:16)
[2023-06-23] MEDS ORDERED: ASPIRIN 81 MG CHEWABLE TABLETS ONE (11:16)
[2023-06-23] MEDS: ASPIRIN COATED 81 MG TABLET.EC PO SCH (11:47)
[2023-06-23] MEDS: CLOPIDOGREL BISULFATE 75 MG TABLET (FP) PO SCH (11:48)
[2023-06-23] MEDS ORDERED: MECLIZINE HCL 12.5 MG TABLET PO PRN (15:52)
[2023-06-23 17:17] LABS: EPI CELLS 6 /uL (0-25.1); HYALINE CASTS 0 /uL (0-3.1); PH,URINE 5.5 (5.0-8.0); URINE APPEARANCE CLEAR; URINE BACTERIA 118 /uL (0-1359); URINE BILIRUBIN NEGATIVE (NEGATIVE); URINE COLOR YELLOW; URINE GLUCOSE (UA) 3+ (NEGATIVE); URINE KETONE NEGATIVE (NEGATIVE); URINE LEUK ESTERASE 1+ (NEGATIVE); URINE NITRITE NEGATIVE (NEGATIVE); URINE PROTEIN NEGATIVE (NEGATIVE); URINE RBC 7 /uL (0-23.9); URINE UROBILINOGEN 0.2 mg/dL (0.2-1.0); URINE WBC 194 /uL (0-25.8)
[2023-06-23] MEDS: METOPROLOL TARTRATE 5 MG/5 ML VIAL IVPUSH ONE (17:43)
[2023-06-24 09:30] LABS: BASO % 0.5 % (0-2.0); EOS % 1.7 % (0-4.5); HEMATOCRIT 45.1 % (35.4-49); LYMPH % 37.3 % (8-40); MCH 28.6 pg (25.7-33.7); MCHC 33.3 g/dl (32.0-35.9); MEAN CELL VOLUME 85.8 fl (80-96); MEAN PLT VOLUME 7.7 fl (7.5-11.1); MONO % 7.6 % (3.8-10.2); NEUT % 52.9 % (42.8-82.8); PLATELET COUNT 269 10^3/uL (134-434); RBC 5.26 M/mm3 (4.00-5.60); RDW 13.4 % (11.9-15.9); WHITE BLOOD COUNT 7.5 K/mm3 (4.0-10.0)
[2023-06-24 09:58] LABS: POTASSIUM 4.1 mmol/L (3.5-5.1)
[2023-06-24 10:07] LABS: ALBUMIN 3.8 g/dl (3.4-5.0); BILIRUBIN,TOTAL 0.8 mg/dL (0.2-1); BLOOD UREA NITROGEN 9.3 mg/dL (7-18); CALCIUM 9.3 mg/dL (8.5-10.1); TOT PROT 7.2 g/dl (6.4-8.2)
[2023-06-24 10:12] LABS: CREATININE 0.7 mg/dL (0.55-1.3)
[2023-06-24] MEDS: EMPAGLIFLOZIN (JARDIANCE) 25 MG TABLET PO SCH (12:02)
[2023-06-25 06:35] VITALS: PULSE 75
[2023-06-25 13:08] LABS: VARICELLA-ZOSTER IGM < 0.91 index (0.00-0.90)
[2023-06-25 14:47] VITALS: BP 99/54; TEMP 98.5
== END 2023-06-25 16:53 | disposition home or self-care (01) ==
LOC: JER 14:44 → JERBED 17:18 → J5S 06-23 14:41
PROVIDERS: ADMIT Internal Medicine; ATTEND Internal Medicine
PROC: 3E033NZ Introduction of Analgesics, Hypnotics, Sedatives into Peripheral Vein, Percutaneous Approach (ICD-10-PCS; principal; 2023-06-22)
PROC: 3E023GC Introduction of Other Therapeutic Substance into Muscle, Percutaneous Approach (ICD-10-PCS; 2023-06-22)
PROC: 3E013VG Introduction of Insulin into Subcutaneous Tissue, Percutaneous Approach (ICD-10-PCS; 2023-06-22)
PROC: 3E0333Z Introduction of Anti-inflammatory into Peripheral Vein, Percutaneous Approach (ICD-10-PCS; 2023-06-22)
PROC: 3E033GC Introduction of Other Therapeutic Substance into Peripheral Vein, Percutaneous Approach (ICD-10-PCS; 2023-06-22)
PROC: 3E0337Z Introduction of Electrolytic and Water Balance Substance into Peripheral Vein, Percutaneous Approach (ICD-10-PCS; 2023-06-22)
DX: R51.9 Headache, unspecified (principal); R42 Dizziness and giddiness; I25.10 Atherosclerotic heart disease of native coronary artery without angina pectoris; E11.9 Type 2 diabetes mellitus without complications; I69.80 Unspecified sequelae of other cerebrovascular disease; I11.0 Hypertensive heart disease with heart failure; I25.2 Old myocardial infarction; E78.5 Hyperlipidemia, unspecified; Z88.8 Allergy status to other drugs, medicaments and biological substances
CPT/HCPCS: 0241U-QW; 36415; 70450-TC; 70544-TC; 70547-TC; 70551-TC; 80048; 80053; 81003; 82136; 82607; 82962; 83036; 83918; 85025; 85651; 86140; 86787; 93005; 93010; 93306-TC; 96365; 96372; 96374; 99285-25; C8910; G0378; J0131; J1644